=== PATIENT | male | born 1935 | race Asian ===

== ENCOUNTER 2020-02-03 03:36 | Inpatient (IN) | payer MEDICARE, OTHER ==
[2020-02-03] VITALS (7 sets, daily range): BP systolic 105–149; BP diastolic 54–85
[~2020-02-03] VITALS: Ht 167.6 cm; Wt 58.7 kg
[2020-02-03] MEDS ORDERED: Acetaminophen 650 MG SUPP RECTAL ONE (03:45)
--- NOTE | 2020-02-03 03:45 | NUR ---
ED Nurse Note: Pt brought into ED by SHILA TOBIN 26 for c/o respiratory distress and decreased altered mental status from [facility]. Pt is awake, opening eyes and nonverbal at this time. Pt oxygen saturation was 80s. Patient arrived with non-rebreather and satuation 95%. Pt placed on non- breather [id number], saturation is now 97%. Pt presents in the ED hypotensive and has expiratory weezing. EMS established IV line on Left arm and gave approx 100ml NS bolus. Pt undressed and changed to gown. Attached awake overnight monitor. ERMD at bedside. All safety masures are met: side rails up, the bed is the lowerst position. Skin is sintact, Noted pacemaker on left chest/. Pt presented BM. Continue to monitor.
[2020-02-03] MEDS ORDERED: Cefepime HCl 2 GM in NS 110 ML IV ONE (04:00)
[2020-02-03] MEDS ORDERED: Vancomycin 1 GM in NS 275 ML IV ONE (04:00)
--- NOTE | 2020-02-03 04:11 | Emergency Room Report ---
History of Present Illness General Chief Complaint: Dyspnea/Respdistress Source: Patient, Medical Record Present Illness HPI Patient is an 84-year-old male brought in by EMS after increased fever. Patient had recent urinary tract infection approximately 2 weeks ago. He been noted to have increased respiratory difficulty. Patient was sent in from [facility]. He had previous history of CABG as well as pacemaker placement. Per patient's son as well as the patient's paperwork he is DNR but is okay for IV fluids as well as IV antibiotics and some procedures may be okay if they have a clear indication and benefit. . Patient was noted to have prior history of dementia had recently been transitioning from primary care physician at [facility] he had been started on supplemental oxygen by paramedics. Patient denies any current complaints. Allergies: Coded Allergies: No Known Allergies (Unverified , 02/03/20) COVID-19 Screening Contact w/high risk pt: Yes Recent Travel to affected area: No Experienced COVID-19 symptoms?: Yes COVID-19 symptoms experienced: Fever (T>100.4F or >38C) COVID-19 Testing performed COTTON DISPATCHER: No - unk COVID-19 Screening: PUI COVID-19 Patient History Reviewed Nursing Documentation: PMH: Agreed; PSxH: Agreed Nursing Documentation-PMH Past Medical History: No History, Except For Hx Cardiac Problems: Yes - pacemaker History Of Psychiatric Problem: Yes - alzheimer's Review of Systems All Other Systems: negative except mentioned in HPI Physical Exam Vital Signs Date Time Temp Pulse Resp B/P (MAP) Pulse Ox O2 Delivery O2 Flow Rate FiO2 02/03/20 03:35 104.7 101 18 106/85 (92) 95 Non-Rebreather General Appearance: alert, Chronically Ill ENT: dry mucus membranes Neck: limited range of motion Respiratory: other - Tachypnea, increased respiratory rate. Cardiovascular #1: normal peripheral pulses, regular rate, rhythm Gastrointestinal: normal inspection, soft Musculoskeletal: normal inspection, back normal Neurologic: alert, motor strength/tone normal, senior physician III-XII nml as tested, oriented x3 Psychiatric: normal inspection Medical Decision Making Diagnostic Impression: Primary Impression: Suspected 2019-nCoV infection Additional Impressions: Febrile illness, acute Dehydration Dementia Pneumonia Urinary tract infection ER Course Presented for fever and difficulty with the breathing. Differential to include was not limited to pneumonia, coronavirus infection, urinary retention, among others. Because of complexity of patient's case laboratory tests and imaging studies were ordered. Right lower lobe infiltrate. Patient started on IV fluids. He was given IV antibiotics. Patient be admitted for further evaluation and treatment of acute febrile illness. Chest x-ray showed some infiltrate which is somewhat concerning for coronavirus infection. Patient will be admitted for further evaluation and treatment. Labs Test 02/03/20 04:32 White Blood Count 6.2 K/UL (4.8-10.8) Red Blood Count 4.46 M/UL (4.70-6.10) Hemoglobin 14.3 G/DL (14.2-18.0) Hematocrit 41.0 % (42.0-52.0) Mean Corpuscular Volume 92 FL (80-99) Mean Corpuscular Hemoglobin 32.0 PG (27.0-31.0) Mean Corpuscular Hemoglobin Concent 34.8 G/DL (32.0-36.0) Red Cell Distribution Width 11.6 % (11.6-14.8) Platelet Count 160 K/UL (150-450) Mean Platelet Volume 7.0 FL (6.5-10.1) Neutrophils (%) (Auto) % (45.0-75.0) Lymphocytes (%) (Auto) % (20.0-45.0) Monocytes (%) (Auto) % (1.0-10.0) Eosinophils (%) (Auto) % (0.0-3.0) Basophils (%) (Auto) % (0.0-2.0) Last Vital Signs Date Time Temp Pulse Resp B/P (MAP) Pulse Ox O2 Delivery O2 Flow Rate FiO2 02/03/20 03:35 104.7 101 18 106/85 (92) 95 Non-Rebreather Status: improved Disposition: ADMITTED INPATIENT Condition: Stable Referrals: [facility],REFERRING (PCP) Luis Antonio Casillas MD February 03, 2020 04:11
[2020-02-03] MEDS ORDERED: MILK OF MA400 MG/51 ORAL (04:14)
[2020-02-03] MEDS ORDERED: ACETAMINOPHEN500 M5 ORAL ×2 (04:14→08:45)
[2020-02-03] MEDS ORDERED: MELATONIN5 M5 ORAL (04:14)
[2020-02-03] MEDS ORDERED: BISMATROL262 MG/15 PO (04:14)
[2020-02-03] MEDS ORDERED: MEMANTINE HCL E28 MG PO (04:14)
[2020-02-03] MEDS ORDERED: ROBITUSSIN LON118 ML PO (04:14)
[2020-02-03] MEDS ORDERED: ROBITUSSIN COU118 M1 ORAL ×2 (04:14→09:18)
--- NOTE | 2020-02-03 04:30 | NUR ---
ED Nurse Note: IV line established Right hand 18G, EKG is done at bedside, Blood initial, lactatic, culture, MRSA/VRE/CRE, urine are collected and sent down to the lab. Unable to collect PCR due to no supply. Per ERMD, insert helms cath.
[2020-02-03 04:40] LABS: APPEARANCE,URINE CLOUDY; BILIRUBIN, URINE NEGATIVE (NEGATIVE); GLUCOSE, URINE (UA) NEGATIVE (NEGATIVE); KETONES,URINE 2+ (NEGATIVE); LEUKOCYTE ESTERASE ,URINE 3+ (NEGATIVE); NITRITE,URINE POSITIVE (NEGATIVE); PH,URINE 6 (4.5-8.0); PROTEIN,URINE 3+ (NEGATIVE); UROBILINOGEN,URINE NORMAL MG/DL (0.0-1.0)
[2020-02-03 04:41] LABS: HEMOGLOBIN 14.3 G/DL (14.2-18.0); MEAN CORPUSCULAR VOLUME 92 FL (80-99); PLATELET COUNT 160 K/UL (150-450); RED BLOOD COUNT 4.46 M/UL (4.70-6.10); RED CELL DISTRIBUTION WIDTH 11.6 % (11.6-14.8); WHITE BLOOD COUNT 6.2 K/UL (4.8-10.8)
[2020-02-03 04:53] LABS: COLOR,URINE YELLOW
[2020-02-03 04:55] LABS: ANION GAP 9 mmol/L (5-15); BLOOD UREA NITROGEN 27 mg/dL (7-18); CALCIUM 8.3 MG/DL (8.5-10.1); CARBON DIOXIDE 25 MMOL/L (21-32); CHLORIDE 105 MMOL/L (98-107); CREATININE 1.4 MG/DL (0.55-1.30); POTASSIUM 4.8 MMOL/L (3.5-5.1); SODIUM 139 MMOL/L (136-145)
[2020-02-03 05:08] LABS: ALANINE AMINOTRANSFERASE 18 U/L (12-78); ALBUMIN 3.1 G/DL (3.4-5.0); ALBUMIN/GLOBULIN RATIO 0.8 (1.0-2.7); ALKALINE PHOSPHATASE 86 U/L (46-116); ASPARTATE AMINO TRANSFERASE 30 U/L (15-37); CKMB < 0.5 NG/ML (0.0-3.6); CREATINE KINASE 80 U/L (26-308)
--- NOTE | 2020-02-03 06:00 | NUR ---
ED Nurse Note: upon integumentary reassessment, pt presents with no pressure sores. left knee abrasion noted
--- NOTE | 2020-02-03 06:03 | NUR ---
HAND-OFF: Report given to LUIS Pearce (Room #202). Answered all questions and reviewd the POC.
--- NOTE | 2020-02-03 06:05 | NUR ---
NURSE NOTES: RECEIVED REPORT FROM LUIS REYES. AWAITING PATIENT'S ARRIVAL TO UNIT.
--- NOTE | 2020-02-03 06:35 | NUR ---
TRANSFER TO FLOOR: Patient transferred to Tele bed as ordered, per Ashtyn BAIRES. Report given to LUIS Pearce. Pt is stable for transfer and transported to the unit via gurny with 3 RNs. Belongongs and admission packet were sent with pt. Droplet transport precausion observed.
--- NOTE | 2020-02-03 06:41 | NUR ---
NURSE NOTES: RECEIVED REPORT/HAND-OFF FROM LUIS REYES. PATIENT TRANSFERRED TO BE VIA 4-PERSON ASSIST WITHOUT ANY INCIDENT. PATIENT IS ALERT, OX1, VERBALLY RESPONSIVE- PATIENT IS URUGUAYAN-SPEAKING ONLY PER ERIC, BUT SPEAKS INCONSISTENTLY AND INCOMPREHENSIBLY. PATIENT ABLE TO FOLLOW SIMPLE COMMANDS, SUCH "OPEN YOUR EYES", "SQUEEZE MY HANDS". NOTED TO BE ON 15L VIA SIMPLE MASK- PATIENT IS TACHYPNEIC WITH AUDIBLE CONGESTION, BREATHING APPEARS TO BE EVEN AND UNLABORED WITH NO S/SX OF DISTRESS. PATIENT'S MOUTH CLEANED WITH ORAL SWABS. PATIENT CHANGED INTO YELLOW GOWN, AND PRODUCT SALES REPRESENTATIVE PLACED. PATIENT HAS NO DENTURES/HEARING AIDS/GLASSES/ASSISTIVE DEVICES IN HIS POSSESSION- PATIENT DID NOT COME WITH A CELL PHONE. PENA CATHETER DRAINING WELL TO GRAVITY, URINE NOTED TO BE DARK YELLOW IN COLOR. PATIENT NOTED TO HAVE MULTIPLE DRIED SCABS AND DISCOLORATIONS ON BILATERAL UPPER AND LOWER EXTREMITIES, WITH AN OPEN SCAB ON LLE. PATIENT ORIENTED TO UNIT, BED CONTROLS, CALL LIGHT, TV. BED LOCKED AND IN LOWEST POSITION WITH SIDERAILS UP X 2. CALL LIGHT WITHIN REACH. WILL CONTINUE TO MONITOR. Addendum: 02/03/20 at 0706 by Deepthi Ma RN IV SITES ON RIGHT HAND AND LAC ASYMPTOMATIC, PATENT AND INTACT- SALINE-LOCKED.
--- NOTE | 2020-02-03 07:29 | NUR ---
HAND-OFF: Report given to LUIS AWAN. PLAN OF CARE ENDORSED.
--- NOTE | 2020-02-03 08:05 | NUR ---
NURSE NOTES: Received report from LUIS Beckham. Pt asleep lying comfortably in bed. On simple mask 15L oxygen. No signs of acute distress. F/C draining by gravity. Bed low in position. Side rails up x2, call light within reach. Will continue plan of care.
[2020-02-03] MEDS ORDERED: ASPIRIN81 MG ORAL (08:45)
[2020-02-03] MEDS ORDERED: ATORVASTATIN CA20 MG ORAL (08:49)
[2020-02-03] MEDS ORDERED: DONEPEZIL HCL10 M2 ORAL (08:51)
[2020-02-03] MEDS ORDERED: MULTIVITAMINS1 EAC2 ORAL (09:18)
[2020-02-03] MEDS ORDERED: NEOSPORIN OINT30 GM TOPIC (09:18)
[2020-02-03] MEDS ORDERED: PSYLLIUM HUSK1 GM MC (09:18)
[2020-02-03] MEDS ORDERED: MELATONIN5 MG/15 ML PO (09:18)
[2020-02-03] MEDS ORDERED: CALMOSEPTINE O3.5 G1 TP (09:18)
--- NOTE | 2020-02-03 10:19 | Consultation ---
Consult Note Consult Note I am consulting the patient for renal failure and electrolyte imbalances, and fluid management Patient is a resident of [facility] extended care facility . Patient referred to emergency room for respiratory difficulty and subsequently admitted for further management. Dr Grace accepted to take the primary physician role Emergency room note: Chief Complaint: Dyspnea/Respdistress Patient is an 84-year-old male brought in by EMS after increased fever. Patient had recent urinary tract infection approximately 2 weeks ago. He been noted to have increased respiratory difficulty. Patient was sent in from [facility]. He had previous history of CABG as well as pacemaker placement. Per patient's son as well as the patient's paperwork he is DNR but is okay for IV fluids as well as IV antibiotics and some procedures may be okay if they have a clear indication and benefit. . Patient was noted to have prior history of dementia had recently been transitioning from primary care physician at [facility] he had been started on supplemental oxygen by paramedics. Patient denies any current complaints. No Known Allergies (Unverified , 02/03/20) COVID-19 Screening Contact w/high risk pt: Yes Recent Travel to affected area: No Experienced COVID-19 symptoms?: Yes COVID-19 symptoms experienced: Fever (T>100.4F or >38C) COVID-19 Testing performed WOOD HEEL FLAP RUBBER: No - unk COVID-19 Screening: PUI COVID-19 Past Medical History: No History, Except For Hx Cardiac Problems: Yes - pacemaker History Of Psychiatric Problem: Yes - alzheimer's Patient examined VSS General Appearance: awake, Chronically Ill ENT: dry mucus membranes Neck: limited range of motion Respiratory: other - Tachypnea, increased respiratory rate. Cardiovascular #1: normal peripheral pulses, regular rate, rhythm Gastrointestinal: normal inspection, soft Musculoskeletal: normal inspection, back normal Neurologic: alert, motor strength/tone normal, media librarian III-XII nml as tested, oriented x3 Psychiatric: normal inspection Data reviewed Discussed with LUIS Valles . Assessment/Plan Renal failure most likely dehydration, may have underlying chronic kidney disease Suspected 2018-nCoV infection Febrile illness, acute Dementia Pneumonia Urinary tract infection Status post pacemaker Slow IV hydration, watch for CHF symptoms Monitor renal parameters Urine studies Antibiotics per ID Avoid nephrotoxic's N.p.o. until speech therapy evaluation Per orders Cooper Chamorro MD February 03, 2020 10:19
--- NOTE | 2020-02-03 10:45 | NUR ---
CASE MANAGEMENT:REVIEW 84 YR OLD MALE BIBA FROM [facility] CC; SOB AND SATURATION 80% ON RA SI: SUSPECTED COVID 19 UTI. PNA DEHYDRATION 104.8 101 18 106/85 95% ON NON REBREATHER BUN+27 CR+1.4 LACTIC ACID+2.6 IS: TYLENOL IL IV VANCOMYCIN IV CEFEPIME IV FLAGYL COVID 19 SWAB BLOOD CX : TO TELEMETRY DCP: FROM [facility]
--- NOTE | 2020-02-03 10:56 | NUR ---
*-* INSURANCE *-* ALL AVAILABLE CLINICALS HAVE BEEN FAXED TO: [facility] [phone] FAX [phone] Work Work Addendum: 02/03/20 at 1112 by BEV WAGNER CM *-* NO INSURANCE INFORMATION IN THE BAR *-* Addendum: 02/04/20 at 0936 [address] CM [facility] P: [phone] F: [phone] (FAX ALL CLINICALS)
[2020-02-03] MEDS ORDERED: HydrALAZINE 25mg tab ORAL PRN (11:00)
[2020-02-03] MEDS: D5NS 1,000 ML IV SCH (11:07)
[2020-02-03] MEDS: Docusate 100mg cap ORAL SCH ×2 (12:37→18:46)
--- NOTE | 2020-02-03 12:49 | Consultation ---
History of Present Illness General Date patient seen: February 03, 2020 Chief Complaint: Dyspnea/Respdistress Present Illness HPI 84 year old male with hx of Dementia, Pacemaker, old Gtube (removed now), detention resident presented to ER by paramedics because of his desaturation and dyspnea. His pulse oximeter was at 80's in the filed. He was put on NRM and oxygen saturation brittnee to 95%. His CXR showed extensive RLL infiltrate. He is admitted for further work up. He is cachectic, awake but not communicating. Looks comfortable. Not answering any questions. Allergies: Coded Allergies: No Known Allergies (Unverified , 02/03/20) Medication History Scheduled Acetaminophen (Acetaminophen), 500 MG ORAL Q6HR, (Reported) Aspirin* (Aspirin*), 81 MG ORAL DAILY, (Reported) Atorvastatin Calcium* (Atorvastatin Calcium*), 20 MG ORAL BEDTIME, (Reported) Donepezil Hcl* (Donepezil Hcl*), 20 MG ORAL DAILY, (Reported) Magnesium Hydroxide* (Milk Of Magnesia*), 30 ML ORAL DAILY, (Reported) Melatonin (Melatonin), 5 MG PO BEDTIME, (Reported) Menthol/Zinc Oxide (Calmoseptine Ointment), 0.44-20 % TP TID, (Reported) Multivitamins* (Multivitamins*), 1 TAB ORAL DAILY, (Reported) Neomycin/Polymyxin/Bacitracin* (Triple Antibiotic Ointment*), Unknown Dose TOPIC NEEDED, (Reported) Psyllium Husk (Psyllium Husk), 3.4 GM MC DAILY, (Reported) Scheduled PRN Guaifenesin/D-Methorphan Hb/Pe (Robitussin Cough-Cold Cf Liq*), 10 ML ORAL Q8H PRN for FOR COUGH, (Reported) Guaifenesin/D-Methorphan Hb/Pe (Robitussin Cough-Cold Cf Liq*), 10 ML ORAL Q4HR PRN for chest congestion, (Reported) Miscellaneous Medications Bismuth Subsalicylate (Bismatrol), 262 MG PO, (Reported) Memantine HCl (Memantine HCl ER), 28 MG PO, (Reported) Discontinued Medications Acetaminophen (Acetaminophen), 500 MG ORAL Q4H, (Reported) Discontinued Reason: discontinued med Dextromethorphan Hbr/Chlor-Mal (Robitussin Long-Acting Liq), 118 ML PO, ( Reported) Discontinued Reason: MD discontinued med Melatonin (Melatonin), 5 MG ORAL BEDTIME PRN for Insomnia, (Reported) Discontinued Reason: MD discontinued med Patient History Healthcare decision maker Resuscitation status Advanced Directive on File Past Medical/Surgical History Past Medical/Surgical History: (1) Alzheimer's dementia (2) History of pacemaker Review of Systems All Other Systems: negative except mentioned in HPI Physical Exam General Appearance: cachetic, thin Lines, tubes and drains: peripheral HEENT: normocephalic, atraumatic Neck: non-tender, supple Respiratory/Chest: rhonchi - left, rhonchi - right Cardiovascular/Chest: normal peripheral pulses, normal rate Abdomen: normal bowel sounds, non tender Extremities: normal range of motion Skin Exam: normal pigmentation Last 24 Hour Vital Signs Date Time Temp Pulse Resp B/P (MAP) Pulse Ox O2 Delivery O2 Flow Rate FiO2 02/03/20 12:00 97.3 74 18 149/66 (93) 100 02/03/20 08:00 74 02/03/20 08:00 97.0 76 20 145/56 (85) 99 02/03/20 07:05 97.2 86 22 116/64 (81) 96 02/03/20 05:47 98.0 86 16 119/54 97 Simple Mask 15.0 02/03/20 04:14 98.0 02/03/20 03:45 101 18 Non-Rebreather 15.0 97 02/03/20 03:45 104.8 101 18 106/85 95 Non-Rebreather 15.0 02/03/20 03:35 104.7 101 18 106/85 (92) 95 Non-Rebreather Intake and Output 02/02/20 02/03/20 19:00 07:00 Intake Total 0 ml Output Total 30 ml Balance -30 ml Intake Oral 0 ml Output Urine Total 30 ml # Bowel Movements 1 Laboratory Tests Test 02/03/20 04:32 02/03/20 05:30 White Blood Count 6.2 K/UL (4.8-10.8) Red Blood Count 4.46 M/UL (4.70-6.10) L Hemoglobin 14.3 G/DL (14.2-18.0) Hematocrit 41.0 % (42.0-52.0) L Mean Corpuscular Volume 92 FL (80-99) Mean Corpuscular Hemoglobin 32.0 PG (27.0-31.0) H Mean Corpuscular Hemoglobin Concent 34.8 G/DL (32.0-36.0) Red Cell Distribution Width 11.6 % (11.6-14.8) Platelet Count 160 K/UL (150-450) Mean Platelet Volume 7.0 FL (6.5-10.1) Neutrophils (%) (Auto) % (45.0-75.0) Lymphocytes (%) (Auto) % (20.0-45.0) Monocytes (%) (Auto) % (1.0-10.0) Eosinophils (%) (Auto) % (0.0-3.0) Basophils (%) (Auto) % (0.0-2.0) Urine Color Yellow Urine Appearance Cloudy Urine pH 6 (4.5-8.0) Urine Specific [place] 1.015 (1.005-1.035) Urine Protein 3+ (NEGATIVE) H Urine Glucose (UA) Negative (NEGATIVE) Urine Ketones 2+ (NEGATIVE) H Urine Blood 4+ (NEGATIVE) H Urine Nitrite Positive (NEGATIVE) H Urine Bilirubin Negative (NEGATIVE) Urine Urobilinogen Normal MG/DL (0.0-1.0) Urine Leukocyte Esterase 3+ (NEGATIVE) H Urine RBC Tntc /HPF (0 - 0) H Urine WBC Tntc /HPF (0 - 0) H Urine Squamous Epithelial Cells None /LPF (NONE/OCC) Urine Bacteria Many /HPF (NONE) H Sodium Level 139 MMOL/L (136-145) Potassium Level 4.8 MMOL/L (3.5-5.1) Chloride Level 105 MMOL/L (98-107) Carbon Dioxide Level 25 MMOL/L (21-32) Anion Gap 9 mmol/L (5-15) Blood Urea Nitrogen 27 mg/dL (7-18) H Creatinine 1.4 MG/DL (0.55-1.30) H Estimat Glomerular Filtration Rate 48.2 mL/min (>60) Glucose Level 143 MG/DL (74-106) H Lactic Acid Level 2.60 mmol/L (0.4-2.0) H 1.80 mmol/L (0.66-2.22) Calcium Level 8.3 MG/DL (8.5-10.1) L Total Bilirubin 1.0 MG/DL (0.2-1.0) Aspartate Amino Transf (AST/SGOT) 30 U/L (15-37) Alanine Aminotransferase (ALT/SGPT) 18 U/L (12-78) Alkaline Phosphatase 86 U/L (46-116) Total Creatine Kinase 80 U/L (26-308) Creatine Kinase MB < 0.5 NG/ML (0.0-3.6) Creatine Kinase MB Relative Index 0.6 Troponin I 0.008 ng/mL (0.000-0.056) Total Protein 7.0 G/DL (6.4-8.2) Albumin 3.1 G/DL (3.4-5.0) L Globulin 3.9 g/dL Albumin/Globulin Ratio 0.8 (1.0-2.7) L Height (Feet): 5 Height (Inches): 6.00 Weight (Pounds): 115 Medications Current Medications Medications (Trade) Dose Ordered Sig/Jodee Route PRN Reason Start Time Stop Time Status Last Admin Dose Admin Dextrose/Sodium Chloride 1,000 ml @ 50 mls/hr Q20H IV 02/03/20 10:30 03/04/20 10:29 02/03/20 11:07 Docusate Sodium (Colace) 100 mg THREE TIMES A DAY ORAL 02/03/20 13:00 03/04/20 12:59 02/03/20 12:37 Hydralazine HCl (Apresoline) 25 mg Q4H PRN ORAL For blood pressure over 160 sy 02/03/20 11:00 05/03/20 10:59 Pantoprazole (Protonix) 40 mg EVERY 12 HOURS ORAL 02/03/20 11:00 03/04/20 10:59 02/03/20 11:07 Assessment/Plan Problem List: (1) Nosocomial pneumonia ICD Codes: J18.9 - Pneumonia, unspecified organism; Y95 - Nosocomial condition SNOMED: 589827843 (2) Suspected 2019-nCoV infection ICD Codes: Z20.828 - Contact with and (suspected) exposure to other viral communicable diseases SNOMED: 072147721 (3) At high risk for aspiration ICD Codes: Z91.89 - Other specified personal risk factors, not elsewhere classified SNOMED: 257211330 (4) Febrile illness, acute ICD Codes: R50.9 - Fever, unspecified SNOMED: 748044029 (5) Alzheimer's dementia ICD Codes: G30.9 - Alzheimer's disease, unspecified; F02.80 - Dementia in other diseases classified elsewhere without behavioral disturbance SNOMED: 65355776 (6) History of pacemaker ICD Codes: Z95.0 - Presence of cardiac pacemaker SNOMED: 289077785 (7) Severe protein-calorie malnutrition ICD Codes: E43 - Unspecified severe protein-calorie malnutrition SNOMED: 825909041, 895645774, 098999374 Assessment/Plan: respiratory treatment check sputum broad spectrum abx swallow study NPO for now airborne isolation for now dvt prophylaxis Jefry Schwazr MD February 03, 2020 12:49
[2020-02-03] MEDS ORDERED: Albuterol/Ipratropium 3ml neb HHN PRN (13:30)
[2020-02-03] MEDS ORDERED: Promethazine/Codeine 5ml UD ORAL PRN (13:30)
[2020-02-03] MEDS ORDERED: Miralax 17gm pkt ORAL PRN (13:30)
[2020-02-03] MEDS ORDERED: Nitroglycerin Subl 0.4mg tab SL PRN (13:30)
--- NOTE | 2020-02-03 15:11 | Consultation ---
History of Present Illness General Date patient seen: February 03, 2020 Chief Complaint: Dyspnea/Respdistress Present Illness HPI 84 y/o M with hx of Alzheimer's Dementia, s/p PPM, CAD s/p CABG, dysphagia s/p GT (now removed), [place] resident ([facility]) presented to ED on 02/02 with dyspnea, fever, desaturation to the 80s in the field (was placed on NRB and O2 increased to 95%). CXR showed RLL infiltrate. Patient reported to have a UTI 2 weeks ago. Patient has been noted to have increased respiratory difficulty. Allergies: Coded Allergies: No Known Allergies (Unverified , 02/03/20) Medication History Scheduled Acetaminophen (Acetaminophen), 500 MG ORAL Q6HR, (Reported) Aspirin* (Aspirin*), 81 MG ORAL DAILY, (Reported) Atorvastatin Calcium* (Atorvastatin Calcium*), 20 MG ORAL BEDTIME, (Reported) Donepezil Hcl* (Donepezil Hcl*), 20 MG ORAL DAILY, (Reported) Magnesium Hydroxide* (Milk Of Magnesia*), 30 ML ORAL DAILY, (Reported) Melatonin (Melatonin), 5 MG PO BEDTIME, (Reported) Menthol/Zinc Oxide (Calmoseptine Ointment), 0.44-20 % TP TID, (Reported) Multivitamins* (Multivitamins*), 1 TAB ORAL DAILY, (Reported) Neomycin/Polymyxin/Bacitracin* (Triple Antibiotic Ointment*), Unknown Dose TOPIC NEEDED, (Reported) Psyllium Husk (Psyllium Husk), 3.4 GM MC DAILY, (Reported) Scheduled PRN Guaifenesin/D-Methorphan Hb/Pe (Robitussin Cough-Cold Cf Liq*), 10 ML ORAL Q8H PRN for FOR COUGH, (Reported) Guaifenesin/D-Methorphan Hb/Pe (Robitussin Cough-Cold Cf Liq*), 10 ML ORAL Q4HR PRN for chest congestion, (Reported) Miscellaneous Medications Bismuth Subsalicylate (Bismatrol), 262 MG PO, (Reported) Memantine HCl (Memantine HCl ER), 28 MG PO, (Reported) Discontinued Medications Acetaminophen (Acetaminophen), 500 MG ORAL Q4H, (Reported) Discontinued Reason: MD discontinued med Dextromethorphan Hbr/Chlor-Mal (Robitussin Long-Acting Liq), 118 ML PO, ( Reported) Discontinued Reason: discontinued med Melatonin (Melatonin), 5 MG ORAL BEDTIME PRN for Insomnia, (Reported) Discontinued Reason: MD discontinued med Patient History Healthcare decision maker Resuscitation status Advanced Directive on File Patient History Narrative PMhx: As above Shx: reviewed FMHx: non contributory Review of Systems All Other Systems: negative except mentioned in HPI Physical Exam Physical Exam Narrative General Appearance: awake, Chronically Ill ENT: dry mucus membranes Neck: limited range of motion Respiratory: other - Tachypnea, increased respiratory rate. Cardiovascular #1: normal peripheral pulses, regular rate, rhythm Gastrointestinal: normal inspection, soft Musculoskeletal: normal inspection, back normal Last 24 Hour Vital Signs Date Time Temp Pulse Resp B/P (MAP) Pulse Ox O2 Delivery O2 Flow Rate FiO2 02/03/20 12:00 97.3 74 18 149/66 (93) 100 02/03/20 09:00 Simple Mask 15.0 02/03/20 09:00 Simple Mask 15.0 02/03/20 08:00 74 02/03/20 08:00 97.0 76 20 145/56 (85) 99 02/03/20 07:05 97.2 86 22 116/64 (81) 96 02/03/20 05:47 98.0 86 16 119/54 97 Simple Mask 15.0 02/03/20 04:14 98.0 02/03/20 03:45 101 18 Non-Rebreather 15.0 97 02/03/20 03:45 104.8 101 18 106/85 95 Non-Rebreather 15.0 02/03/20 03:35 104.7 101 18 106/85 (92) 95 Non-Rebreather Intake and Output 02/02/20 02/03/20 19:00 07:00 Intake Total 0 ml Output Total 30 ml Balance -30 ml Intake Oral 0 ml Output Urine Total 30 ml # Bowel Movements 1 Laboratory Tests Test 02/03/20 04:32 02/03/20 05:30 White Blood Count 6.2 K/UL (4.8-10.8) Red Blood Count 4.46 M/UL (4.70-6.10) L Hemoglobin 14.3 G/DL (14.2-18.0) Hematocrit 41.0 % (42.0-52.0) L Mean Corpuscular Volume 92 FL (80-99) Mean Corpuscular Hemoglobin 32.0 PG (27.0-31.0) H Mean Corpuscular Hemoglobin Concent 34.8 G/DL (32.0-36.0) Red Cell Distribution Width 11.6 % (11.6-14.8) Platelet Count 160 K/UL (150-450) Mean Platelet Volume 7.0 FL (6.5-10.1) Neutrophils (%) (Auto) % (45.0-75.0) Lymphocytes (%) (Auto) % (20.0-45.0) Monocytes (%) (Auto) % (1.0-10.0) Eosinophils (%) (Auto) % (0.0-3.0) Basophils (%) (Auto) % (0.0-2.0) Urine Color Yellow Urine Appearance Cloudy Urine pH 6 (4.5-8.0) Urine Specific [place] 1.015 (1.005-1.035) Urine Protein 3+ (NEGATIVE) H Urine Glucose (UA) Negative (NEGATIVE) Urine Ketones 2+ (NEGATIVE) H Urine Blood 4+ (NEGATIVE) H Urine Nitrite Positive (NEGATIVE) H Urine Bilirubin Negative (NEGATIVE) Urine Urobilinogen Normal MG/DL (0.0-1.0) Urine Leukocyte Esterase 3+ (NEGATIVE) H Urine RBC Tntc /HPF (0 - 0) H Urine WBC Tntc /HPF (0 - 0) H Urine Squamous Epithelial Cells None /LPF (NONE/OCC) Urine Bacteria Many /HPF (NONE) H Sodium Level 139 MMOL/L (136-145) Potassium Level 4.8 MMOL/L (3.5-5.1) Chloride Level 105 MMOL/L (98-107) Carbon Dioxide Level 25 MMOL/L (21-32) Anion Gap 9 mmol/L (5-15) Blood Urea Nitrogen 27 mg/dL (7-18) H Creatinine 1.4 MG/DL (0.55-1.30) H Estimat Glomerular Filtration Rate 48.2 mL/min (>60) Glucose Level 143 MG/DL (74-106) H Lactic Acid Level 2.60 mmol/L (0.4-2.0) H 1.80 mmol/L (0.66-2.22) Calcium Level 8.3 MG/DL (8.5-10.1) L Total Bilirubin 1.0 MG/DL (0.2-1.0) Aspartate Amino Transf (AST/SGOT) 30 U/L (15-37) Alanine Aminotransferase (ALT/SGPT) 18 U/L (12-78) Alkaline Phosphatase 86 U/L (46-116) Total Creatine Kinase 80 U/L (26-308) Creatine Kinase MB < 0.5 NG/ML (0.0-3.6) Creatine Kinase MB Relative Index 0.6 Troponin I 0.008 ng/mL (0.000-0.056) Total Protein 7.0 G/DL (6.4-8.2) Albumin 3.1 G/DL (3.4-5.0) L Globulin 3.9 g/dL Albumin/Globulin Ratio 0.8 (1.0-2.7) L Height (Feet): 5 Height (Inches): 6.00 Weight (Pounds): 115 Medications Current Medications Medications (Trade) Dose Ordered Sig/Jodee Route PRN Reason Start Time Stop Time Status Last Admin Dose Admin Acetaminophen (Tylenol) 650 mg Q4H PRN ORAL fever 02/03/20 13:00 03/04/20 12:59 Albuterol/ Ipratropium (Albuterol/ Ipratropium) 3 ml Q4H PRN HHN Shortness of Breath 02/03/20 13:30 02/08/20 13:29 Cefepime HCl 1 gm/ Dextrose 55 ml @ 110 mls/hr DAILY IV 02/04/20 09:00 02/11/20 08:59 Dextrose/Sodium Chloride 1,000 ml @ 50 mls/hr Q20H IV 02/03/20 10:30 03/04/20 10:29 02/03/20 11:07 Docusate Sodium (Colace) 100 mg THREE TIMES A DAY ORAL 02/03/20 13:00 03/04/20 12:59 02/03/20 12:37 Donepezil HCl (Aricept) 20 mg DAILY ORAL 02/04/20 09:00 03/05/20 08:59 Heparin Sodium (Porcine) (Heparin 5000 units/ml) 5,000 units EVERY 12 HOURS SUBQ 02/03/20 21:00 03/19/20 20:59 Hydralazine HCl (Apresoline) 25 mg Q4H PRN ORAL For blood pressure over 160 sy 02/03/20 11:00 05/03/20 10:59 Nitroglycerin (Ntg) 0.4 mg Q5M PRN SL Prn Chest Pain 02/03/20 13:30 03/04/20 13:29 Ondansetron HCl (Zofran) 4 mg Q6H PRN IVP Nausea & Vomiting 02/03/20 13:30 03/04/20 13:29 Pantoprazole (Protonix) 40 mg EVERY 12 HOURS ORAL 02/03/20 11:00 03/04/20 10:59 02/03/20 11:07 Polyethylene Glycol (Miralax) 17 gm DAILYPRN PRN ORAL Constipation 02/03/20 13:30 03/04/20 13:29 Promethazine HCl/ Codeine (Phenergan with Codeine) 5 ml Q4H PRN ORAL For Cough 02/03/20 13:30 03/04/20 13:29 Temazepam (Restoril) 15 mg HSPRN PRN ORAL Insomnia 02/03/20 21:00 02/10/20 20:59 Vancomycin HCl (Vanco rx to dose) 1 ea DAILY PRN MISC Per rx protocol 02/03/20 12:45 03/04/20 12:44 Assessment/Plan Assessment/Plan: Abx: IV Vancomycin 02/02- Cefepime 02/02- Flagyl x 1 02/02 Assessment: Severe Sepsis Acute hypoxic respiratory failure- on simple mask 15L- high suspicion for COVID19 Probable Pneumonia -CXR p UTI -u/a wbc tnct, nit +, leuk +3; ucx p Ro probable bacteremia -BCx p Fever ( up to 104.8 upon admission);improving No leukocytosis BRIANA Lactic acidosis, SP hx of recent UTI (~2 weeks [facility]) Alzheimer's Dementia s/p PPM CAD s/p CABG dysphagia s/p GT (now removed) [place] resident ([facility]) - no reported COVID patients in this facility as of 02/03/20 DNR/DNI Plan: -Continue empiric IV Vancomycin and Cefepime #1 -f/u cx -Monitor CBC/CMP, temperatures -COVID 19 isolation and testing -aspiration precautions Thank you for consulting [facility]. Will contiue to follow along with you. Discussed with LUIS. Jocelyn Olson M.D. February 03, 2020 15:11
--- NOTE | 2020-02-03 15:23 | NUR ---
PT REFERRED FOR BEDSIDE SWALLOW EVALUATION BY DR. ALONZO (Please see care activity section for complete report) DYSPHAGIA RISK FACTORS FOR THIS 83 Y.O. Male ACUTE ISSUES PNA with suspected COVID -19, UTI, Dehydration, Dyspnea, respiratory distress, COMORBIDITIES CABG w/ pacemaker placement, Alzheimer Dementia RELEVANT MEDICATIONS: Albuterol (SOB), Zofran (nausea); Protonix (GERD); Restoril (insomnia); Codeine (Pain) PRIOR FUNCTION: Pt previously living at [facility]. No information on pervious diet texture available in chart. RESPIRATORY STATUS on simple mask 15 L/min: HR: 74; RR 18; SP02 100% SPEECH/LANGUAGE: Pt is able to speak Micronesian, confused, lethargic, requires multiple verbal and tactile cues to maintain alertness during evaluation. RN REPORTS: Pt swallowed PO medications whole w/ nectar thick liquids and no significant overt s/s of aspiration. POLST: DNR, procedures may be okay if they have clear indication and benefit. Pt requires moderate verbal and tactile cues to awake for PO trials and additional cues to sustain alertness. Has intact dentition, lingual ROM and coordination mildly reduced. Able to verbally communicate wants and needs. Oral secretion management is function. INITIAL IMPRESSIONS: Mild oral and probable mild to moderate pharyngeal phase dysphagia compounded by respiratory distress and SOB with increased oral prep and transit time, reduced and delayed laryngeal elevation. Overt s/s of aspiration w/ thin liquids observed only. -->Given thin liquids via teaspoon w/ immediate and overt s/s of aspiration. Laryngeal elevation is reduced per palpations and appears delayed. -->Given thicken liquids via straw w/ no overt s/s of aspiration. -->Given puree solids via teaspoon w/ no immediate or overt s/s of aspiration, multiple swallows and laryngeal elevation is reduced per palpations. Pt requires simple mask at 15 L/min, respiratory rate increases w/ sequential sips. -PATIENT IS AT A RISK FOR ASPIRATION DUE TO REDUCED ALERTNESS (LETHARGIC) AND Hx OF ALZHEIMER'S DEMENTIA RECOMMENDATIONS: 1. Puree solids w/ Jaars Thick Liquids and 1:to:1 careful hand feeding 2. ASPIRATION/REFLUX PRECAUTIONS, refer to sign posted above HOB 3. SKILLED ST SERVICES TO F/U 3x a week x 1 week 4. MBSS IP OR OP (IF D/C) WHEN COVID NEG
--- NOTE | 2020-02-03 16:34 | History & Physical ---
History and Physical History & Physicial Dictated for Int Med-Dr Grace no. [id number]. DNR/DNI-POLST in chart Ramiro Harry MD February 03, 2020 16:33
--- NOTE | 2020-02-03 19:03 | NUR ---
HAND-OFF: Report given to LUIS Person.
--- NOTE | 2020-02-03 19:04 | Cardiology Progress Note ---
Assessment/Plan Assessment/Plan full note dicted once covid rulled out may consider echo repeat cardaic enzymes and pro bnp in am bp look good sat are fien but on high flow oxygehn taper as possible [id number] Objective Last 24 Hour Vital Signs Date Time Temp Pulse Resp B/P (MAP) Pulse Ox O2 Delivery O2 Flow Rate FiO2 02/03/20 16:00 73 02/03/20 16:00 97.3 81 20 125/62 (83) 99 02/03/20 15:25 91 24 96 Non-Rebreather 100 02/03/20 15:25 91 24 96 Non-Rebreather 100 02/03/20 12:00 97.3 74 18 149/66 (93) 100 02/03/20 09:00 Simple Mask 15.0 02/03/20 09:00 Simple Mask 15.0 02/03/20 08:00 74 02/03/20 08:00 97.0 76 20 145/56 (85) 99 02/03/20 07:05 97.2 86 22 116/64 (81) 96 02/03/20 05:47 98.0 86 16 119/54 97 Simple Mask 15.0 02/03/20 04:14 98.0 02/03/20 03:45 101 18 Non-Rebreather 15.0 97 02/03/20 03:45 104.8 101 18 106/85 95 Non-Rebreather 15.0 02/03/20 03:35 104.7 101 18 106/85 (92) 95 Non-Rebreather Intake and Output 02/02/20 02/03/20 19:00 07:00 Intake Total 0 ml Output Total 30 ml Balance -30 ml Intake Oral 0 ml Output Urine Total 30 ml # Bowel Movements 1 Laboratory Tests Test 02/03/20 04:32 02/03/20 05:30 White Blood Count 6.2 K/UL (4.8-10.8) Red Blood Count 4.46 M/UL (4.70-6.10) L Hemoglobin 14.3 G/DL (14.2-18.0) Hematocrit 41.0 % (42.0-52.0) L Mean Corpuscular Volume 92 FL (80-99) Mean Corpuscular Hemoglobin 32.0 PG (27.0-31.0) H Mean Corpuscular Hemoglobin Concent 34.8 G/DL (32.0-36.0) Red Cell Distribution Width 11.6 % (11.6-14.8) Platelet Count 160 K/UL (150-450) Mean Platelet Volume 7.0 FL (6.5-10.1) Neutrophils (%) (Auto) % (45.0-75.0) Lymphocytes (%) (Auto) % (20.0-45.0) Monocytes (%) (Auto) % (1.0-10.0) Eosinophils (%) (Auto) % (0.0-3.0) Basophils (%) (Auto) % (0.0-2.0) Urine Color Yellow Urine Appearance Cloudy Urine pH 6 (4.5-8.0) Urine Specific [place] 1.015 (1.005-1.035) Urine Protein 3+ (NEGATIVE) H Urine Glucose (UA) Negative (NEGATIVE) Urine Ketones 2+ (NEGATIVE) H Urine Blood 4+ (NEGATIVE) H Urine Nitrite Positive (NEGATIVE) H Urine Bilirubin Negative (NEGATIVE) Urine Urobilinogen Normal MG/DL (0.0-1.0) Urine Leukocyte Esterase 3+ (NEGATIVE) H Urine RBC Tntc /HPF (0 - 0) H Urine WBC Tntc /HPF (0 - 0) H Urine Squamous Epithelial Cells None /LPF (NONE/OCC) Urine Bacteria Many /HPF (NONE) H Sodium Level 139 MMOL/L (136-145) Potassium Level 4.8 MMOL/L (3.5-5.1) Chloride Level 105 MMOL/L (98-107) Carbon Dioxide Level 25 MMOL/L (21-32) Anion Gap 9 mmol/L (5-15) Blood Urea Nitrogen 27 mg/dL (7-18) H Creatinine 1.4 MG/DL (0.55-1.30) H Estimat Glomerular Filtration Rate 48.2 mL/min (>60) Glucose Level 143 MG/DL (74-106) H Lactic Acid Level 2.60 mmol/L (0.4-2.0) H 1.80 mmol/L (0.66-2.22) Calcium Level 8.3 MG/DL (8.5-10.1) L Total Bilirubin 1.0 MG/DL (0.2-1.0) Aspartate Amino Transf (AST/SGOT) 30 U/L (15-37) Alanine Aminotransferase (ALT/SGPT) 18 U/L (12-78) Alkaline Phosphatase 86 U/L (46-116) Total Creatine Kinase 80 U/L (26-308) Creatine Kinase MB < 0.5 NG/ML (0.0-3.6) Creatine Kinase MB Relative Index 0.6 Troponin I 0.008 ng/mL (0.000-0.056) Total Protein 7.0 G/DL (6.4-8.2) Albumin 3.1 G/DL (3.4-5.0) L Globulin 3.9 g/dL Albumin/Globulin Ratio 0.8 (1.0-2.7) L Dio Calzada MD February 03, 2020 19:04
--- NOTE | 2020-02-03 20:19 | NUR ---
NURSE NOTES: Received patient from LUIS Mendoza. Patient AOx 1. He shows no signs of distress or pain at them time. Patient is on soft restraints on both wrists. Hill in place. Patients IV is patent and flushed. There are no signs of erythema, infiltration, or bleeding. Bed in the lowest position, call light within reach, bed alarm on, and side rails up x 3. Will continue plan of care.
[2020-02-03] MEDS: Atorvastatin 20mg tab ORAL SCH (21:57)
[2020-02-03] MEDS: Heparin 5000 units/ml inj SUBQ SCH (21:58)
--- NOTE | 2020-02-03 22:44 | History and Physical Report ---
DATE OF ADMISSION: 02/03/2020 NOTE: INCOMPLETE DICTATION CHIEF COMPLAINT: Patient is an 84-year-old male who presents with a chief complaint of fever and shortness of breath. HISTORY OF PRESENT ILLNESS: Patient is a resident of [facility]. Patient himself is unable to contribute much to the history and physical. Patient has a history of Alzheimer's dementia. Patient apparently was treated for urinary tract infection approximately 2 weeks ago. Staff at [facility] noted patient had fever yesterday, 02/02/2020. Patient also seemed to have labored respirations. Patient presented to [place] emergency room. Patient is admitted with fever to rule out urosepsis versus upper respiratory tract infection versus COVID-19 infection. REVIEW OF SYSTEMS: Unable to assess secondary to patient's mental status. PAST MEDICAL HISTORY: Significant for: 1. Alzheimer's dementia. 2. Coronary artery disease. PAST SURGICAL HISTORY: Significant for: 1. Pacemaker implantation. 2. Coronary artery bypass graft. 3. Gastrostomy tube placement and subsequent reversal. CURRENT MEDICATIONS: 1. Tylenol 500 mg 1 tablet p.o. q.6h. p.r.n. 2. Aspirin 81 mg 1 tablet p.o. daily. 3. Atorvastatin 20 mg p.o. at bedtime. 4. Bismatrol 262 mg p.o. p.r.n. 5. Benazepril 20 mg p.o. daily. 6. Magnesium hydroxide 30 mL p.o. daily. 7. Melatonin 5 mg p.o. at bedtime p.r.n. 8. Memantine 28 mg p.o. daily. 9. Multivitamin p.o. daily. 10. Metamucil p.o. daily. ALLERGIES: No known drug allergies. SOCIAL HISTORY: Patient is single and lives at [facility]. Patient denies tobacco or alcohol use. PHYSICAL EXAMINATION: VITAL SIGNS: Temperature 104.7, respirations 18, pulse 95, blood pressure 106/85. GENERAL: Patient is a thin-appearing male, in no apparent distress. HEENT: Eyes, pupils are equal and responsive to light and accommodation. Extraocular movements are intact. NECK: Supple. No lymphadenopathy. CHEST: Lungs are clear to auscultation bilaterally without wheezes or rales. CARDIOVASCULAR: Regular rate. S1, S2 normal without murmurs, rubs, gallops. ABDOMEN: Soft, nontender, and nondistended. Positive bowel sounds. No evidence of hepatosplenomegaly. Currently, no rebound or guarding noted. EXTREMITIES: Negative for clubbing, cyanosis, or edema. RECTAL/GENITAL: Not performed. NEUROLOGICAL: Cranial nerves II through XII grossly intact without focal deficits. LABORATORY STUDIES: WBC 6.2, hemoglobin 14.3, hematocrit 41.0, platelets 160,000. Sodium 139, potassium 4.8, chloride 105, CO2 25, BUN 27, creatinine 1.4, glucose 143. Lactic acid 2.60. Troponin 0.008. Urinalysis showed 3+ protein, 2+ ketones, 4+ blood, nitrite positive, leukocyte esterase 3+, rbc's too numerous to count, wbc's too numerous to count. ASSESSMENT: This is an 84-year-old male. 1. Fever. 2. Urinary tract infection. 3. Shortness of breath. 4. Alzheimer's dementia. 5. Coronary artery disease. 6. DNR/DNI status. TREATMENT: 1. Fever/urinary tract infection. Patient may have sepsis. On admission, fever was greater than 104 degrees Fahrenheit. This is high for an elderly male. Ramiro Harry M.D. DR: CHINA JOB#: [id number] CC:
--- NOTE | 2020-02-03 22:52 | NUR ---
NURSE NOTES: Gracie from [facility] called to check on patients condition. Relayed that there was no change and no fevers have been noted.
--- NOTE | 2020-02-03 23:00 | History and Physical Report ---
DATE OF ADMISSION: 02/03/2020 CHIEF COMPLAINT: Patient is an 84-year-old male, who presents with a chief complaint of fever and shortness of breath. HISTORY OF PRESENT ILLNESS: Patient himself is unable to contribute much to the history and physical. Much of the history and physical is obtained from patient's chart. Patient is a resident of [facility]. Patient apparently was treated for urinary tract infection recently. According to staff at [facility], patient began to experience fever on 02/02/2020. Patient is transferred to [facility] for evaluation. Patient is admitted for fever and shortness of breath to rule out COVID-19 infection versus sepsis. REVIEW OF SYSTEMS: Unable to assess secondary to patient's mental status. PAST MEDICAL HISTORY: Significant for: 1. Alzheimer's dementia. 2. Coronary artery disease. PAST SURGICAL HISTORY: Significant for: 1. Pacemaker implantation. 2. Coronary artery bypass graft. 3. Gastrostomy tube placement and subsequent referral. CURRENT MEDICATIONS: 1. Acetaminophen 500 mg p.o. q.4h. p.r.n. 2. Aspirin 81 mg p.o. daily. 3. Atorvastatin 20 mg p.o. at bedtime. 4. Benazepril 10 mg 2 tablets p.o. daily. 5. Melatonin 5 mg p.o. at bedtime. 6. Memantine 28 mg p.o. daily. 7. Multivitamin p.o. daily. ALLERGIES: No known drug allergies. SOCIAL HISTORY: Patient is single and is a resident of [facility]. Patient denies tobacco or alcohol use. PHYSICAL EXAMINATION: VITAL SIGNS: Temperature 104.7, respirations 18, pulse 101, blood pressure 106/85, pulse ox 95% on a non-rebreather. GENERAL: Patient is a thin-appearing male, in no apparent distress. HEENT: Eyes, pupils are equal and responsive to light and accommodation. Extraocular movements are intact. NECK: Supple without lymphadenopathy. CHEST: Lungs are clear to auscultation bilaterally without wheezes or rales. CARDIOVASCULAR: Regular rate. S1, S2 are normal without murmurs, rubs, or gallops. ABDOMEN: Soft, nontender, nondistended. Positive bowel sounds. No hepatosplenomegaly. Currently, no rebound or guarding noted. EXTREMITIES: Negative for clubbing, cyanosis, edema. RECTAL/GENITAL: Not performed. NEUROLOGIC: Cranial nerves II through XII are grossly intact without focal deficits. LABORATORY STUDIES: WBC 6.3, hemoglobin 14.3, hematocrit 41.0, platelets 160,000. Sodium 139, potassium 4.8, chloride 105, CO2 25, BUN 27, creatinine 1.4, glucose 143. Lactic acid 2.60. Troponin 0.008. Urinalysis showed 3+ protein, 2+ ketones, 4+ blood, positive nitrite, 3+ leukocyte esterase, rbc's too numerous to count, wbc's too numerous to count. ASSESSMENT: This is an 84-year-old male. 1. Fever. 2. Urinary tract infection. 3. Shortness of breath. 4. Alzheimer's dementia. 5. Coronary artery disease. TREATMENT: 1. Fever/urinary tract infection. Patient has been placed empirically on cefepime and vancomycin. An Infectious Disease consultation has been obtained with Dr. Olson. We will follow recommendations of Infectious Disease. Urine culture and blood cultures are pending. 2. Shortness of breath and fevers concerning in an [facility] resident. A COVID-19 swab is pending. 3. Alzheimer's dementia. Continue Aricept and Namenda as above. 4. Coronary artery disease. Patient is status post coronary artery bypass graft. 5. Hypercholesterolemia. Continue atorvastatin as above. 6. Patient is DNR/DNI. Ramiro Harry M.D. DR: CHINA JOB#: [id number] CC: HENRY
[2020-02-04] VITALS: BP 105/56
--- NOTE | 2020-02-04 03:00 | Consultation ---
DATE OF CONSULTATION: 02/03/2020 CARDIOLOGY CONSULTATION CONSULTING PHYSICIAN: Dio Calzada MD. REFERRING PHYSICIAN: 1. Roby Grace MD. 2. Jefry Schwarz MD. REASON FOR REFERRAL: Sepsis and abnormal electrocardiogram. HISTORY OF PRESENT ILLNESS: This is an 84-year-old gentleman who is a resident of [facility]. [facility] to the emergency room and the ambulance report indicates that patient has flu-like symptoms. Per staff, patient started coughing approximately was shaking. Patient has a DNR with comfort measures only, but a history of dementia. He was noted to have rales bilaterally. Lying supine in bed with oxygen saturation 82%, blood pressure 86/48. He was placed on 15 L non-rebreather mask and was transferred to the emergency room. 500 mL of normal saline were infused. In the emergency room, was seen by the emergency room physician. It appears that he had urinary tract infection for which he was treated 2 weeks ago and according to the emergency room physician had increasing shortness of breath. Per the emergency room physician and my discussion with the nursing staff here, the patient was relatively calm today, although became more confused and started pulling out his IVs. He is on 15 L nasal cannula. He has not had any decrease in saturation as he is coughing. He has had no further fevers. PAST MEDICAL HISTORY: The chart indicates patient's past medical history is positive for history of coronary artery bypass grafting as well as a permanent pacemaker implantation as well as dementia and unfortunately no other data is available except what was noted above. He has had G-tube that also has been subsequently removed. I was not able to obtain any further information from [facility] on this patient. Nothing available at that facility in pertaining to his medical status. ALLERGIES: He has no known drug allergies according to the chart. SOCIAL HISTORY: No smoking or alcohol at the present time. REVIEW OF SYSTEMS: Not able to obtain from the patient, obtained from the nursing staff.GASTROINTESTINAL: There has been no reports of nausea, vomiting, or diarrhea. GENITOURINARY: No reports of any discomfort on urination. PULMONARY: Positive for coughing. CONSTITUTIONAL: He had some low-grade fevers. NEUROLOGICAL: He has become confused later in the afternoon. Nursing staff felt that the patient has probably sundowning. PHYSICAL EXAMINATION: Deferred secondary to COVID pending status. LABORATORY VALUES: He has had electrocardiogram that shows basically sinus rhythm with premature atrial contractions and what appears to be a leftward axis. Really no significant ST-T wave abnormality being noted. progression of course maybe lead placement. White count 6.3, hemoglobin 14, and platelet count of 160. Sodium is 139, potassium 4.8, chloride 105, bicarb 25, BUN 27, creatinine 1.4, and glucose of 143. Lactic acid initially 2.6 up to 1.8. Calcium is 8.3. Liver function tests are normal. Troponin 0.08. Albumin is 3.1. Urinalysis shows too numerous to count rbc's, wbc's, and 2+ ketones, positive nitrites, and there has been no other data is available. In the emergency room, the patient is documented to have temperature of 104.7. ASSESSMENT AND PLAN: 1. Respiratory decompensation. 2. Probable sepsis. 3. Dementia. 4. Coronary artery disease, status post coronary bypass grafting. 5. Urinary tract infection. 6. Renal insufficiency. This patient was seen in cardiac consultation. Patient has not endorsed any signs or symptoms of coronary syndrome according to the nursing staff. The patient's vital signs have been reviewed. Most recent blood pressure is 125/62 with heart rate of 91, temperature 97.3, 99% saturation documented on non-rebreather mask however. The patient being treated for possibility of pneumonia. COVID-19 testing is pending at this time. Cardiac enzymes will be ordered for tomorrow morning as well as EKG, however, this patient has reported advance directive for limited care and hydration will be continued. An echocardiogram will be ordered once the patient's COVID status is noted to be negative. Dio Calzada M.D. DR: ESAU JOB#: [id number] CC:
[2020-02-04 04:00] VITALS: BP 111/61
[2020-02-04] MEDS: D5NS 1,000 ML IV SCH (06:24)
[2020-02-04 07:15] LABS: ALBUMIN 2.1 G/DL (3.4-5.0); ANION GAP 6 mmol/L (5-15); BLOOD UREA NITROGEN 19 mg/dL (7-18); CARBON DIOXIDE 26 MMOL/L (21-32); CHLORIDE 113 MMOL/L (98-107); CREATININE 0.9 MG/DL (0.55-1.30); POTASSIUM 3.6 MMOL/L (3.5-5.1); SODIUM 144 MMOL/L (136-145)
--- NOTE | 2020-02-04 07:34 | NUR ---
HAND-OFF: Report given to LUIS Goode and LUIS Lemons. Patient shows no signs of distress. Endorsed plan of care.
--- NOTE | 2020-02-04 07:35 | NUR ---
NURSE NOTES: Received report from LUIS Person. in bed awake, alert, talking to self, unable to comprehend what he is saying. Reposition patient and made him comfortable. Patient is on simple mask 15L oxygen and tolerating well. No signs of pain or acute distress. F/C draining by gravity. IV is intact and patent running D5 NS at 50CC/HR. Bed is in lowest position. Side rails up x3, call light within reach. Will continue with the plan of care.
--- NOTE | 2020-02-04 07:36 | NUR ---
NURSE NOTES: Patient is on bilateral soft restraints for pulling devices and NPO pending ST evaluation. Will continue to monitor.
[2020-02-04 07:38] LABS: ALANINE AMINOTRANSFERASE 13 U/L (12-78); ALBUMIN 2.2 G/DL (3.4-5.0); ALBUMIN/GLOBULIN RATIO 0.7 (1.0-2.7); ALKALINE PHOSPHATASE 67 U/L (46-116); ANION GAP 8 mmol/L (5-15); ASPARTATE AMINO TRANSFERASE 27 U/L (15-37); BILIRUBIN,TOTAL 0.4 MG/DL (0.2-1.0); BLOOD UREA NITROGEN 19 mg/dL (7-18); CALCIUM 8.2 MG/DL (8.5-10.1); CARBON DIOXIDE 26 MMOL/L (21-32); CHLORIDE 113 MMOL/L (98-107); CHOLESTEROL 90 MG/DL (< 200); CREATININE 0.8 MG/DL (0.55-1.30); FERRITIN 385 NG/ML (8-388); GAMMA GLUTAMYL TRANSPEPTIDASE 13 U/L (5-85); HDL CHOLESTEROL 51 MG/DL (40-60); LACTATE DEHYDROGENASE 184 U/L (81-234); PHOSPHORUS 1.9 MG/DL (2.5-4.9); POTASSIUM 3.7 MMOL/L (3.5-5.1); SODIUM 147 MMOL/L (136-145); TRIGLYCERIDES 58 MG/DL (30-150)
[2020-02-04 07:48] LABS: % IRON SATURATION 11 % (15-50); IRON 11 ug/dL (50-175); TOTAL IRON BINDING CAPACITY 98 ug/dL (250-450)
[2020-02-04 08:00] VITALS: BP 126/59
[2020-02-04] MEDS: Donepezil 10mg tab ORAL SCH (08:33)
[2020-02-04] MEDS: Aspirin Baby 81mg ORAL SCH (08:34)
[2020-02-04] MEDS: Docusate 100mg cap ORAL SCH ×3 (08:34→18:54)
[2020-02-04] MEDS: Cefepime HCl 1 GM in D5W 55 ML IV SCH (08:35)
[2020-02-04] MEDS: Heparin 5000 units/ml inj SUBQ SCH ×2 (08:48→20:21)
--- NOTE | 2020-02-04 08:49 | NUR ---
RD ASSESSMENT & RECOMMENDATIONS SEE CARE ACTIVITY FOR COMPLETE ASSESSMENT DAILY ESTIMATED NEEDS: Needs based on Sepsis 54.1kg 30-35 kcals/kg 4862-3534 total kcals 1-2 g protein/kg 54-108 g total protein 25-30ml/kcal mL/kg 7848-8476 total fluid mLs NUTRITION DIAGNOSIS: Swallowing difficulty r/t h/o dementia, possible dysphagia as evidenced by pending HYDROLOGICAL TECHNICAL OFFICER nalini, currently NPO. PO DIET RECOMMENDATIONS: Liberalized Regular diet/ texture per HYDROLOGICAL TECHNICAL OFFICER ------ ADDITIONAL RECOMMENDATIONS: 1) For glycemic control, rec GLUCERNA as HPN -> Consult RD for non oral TF recs if not safe for oral po 2) Recalibrate bedscale for accurate CBW 119 lbs per SNF 3) Monitor lytes / hydration status w/ NPO-> currently on D5
--- NOTE | 2020-02-04 09:08 | NUR ---
CASE MANAGEMENT:REVIEW 02/04/20 SI: FEVER. UTI. SOB COVID 19 RESULTS PENDING 97.3 81 18 111/61 92% ON NON REBREATHER IS: IV CEFEPIME QD IVF@50/HR ARICEPT PO QD ASA PO QD HEPARIN SQ Q12 LIPITOR PO QHS COLACE PO TID PROTONIX PO Q12 : TELEMETRY STATUS DCP: FROM [facility]
--- NOTE | 2020-02-04 09:13 | NUR ---
DISCHARGE PLANNING NOT READY FOR DISCHARGE 1) COVID RESULTS PENDING 2) SATURATING 91% ON NON REBREATHER
--- NOTE | 2020-02-04 10:00 | NUR ---
NURSE NOTES: Covid 19 collected and sent to lab. Awaiting result.
[2020-02-04 11:09] LABS: BASOPHILS % (AUTO) 0.8 % (0.0-2.0); EOSINOPHILS % (AUTO) 0.2 % (0.0-3.0); HEMATOCRIT 33.6 % (42.0-52.0); HEMOGLOBIN 11.6 G/DL (14.2-18.0); LYMPHOCYTES % (AUTO) 8.6 % (20.0-45.0); MEAN CORPUSCULAR VOLUME 93 FL (80-99); MONOCYTES % (AUTO) 8.6 % (1.0-10.0); NEUTROPHILS % (AUTO) 81.7 % (45.0-75.0); PLATELET COUNT 109 K/UL (150-450); RED CELL DISTRIBUTION WIDTH 11.8 % (11.6-14.8)
[2020-02-04 12:00] VITALS: BP 125/60
--- NOTE | 2020-02-04 12:32 | Pulmonology Progress Note ---
Subjective ROS Limited/Unobtainable: Yes Allergies: Coded Allergies: No Known Allergies (Unverified , 02/03/20) Objective Last 24 Hour Vital Signs Date Time Temp Pulse Resp B/P (MAP) Pulse Ox O2 Delivery O2 Flow Rate FiO2 02/04/20 09:00 Simple Mask 15.0 02/04/20 08:00 97.8 90 20 126/59 (81) 96 02/04/20 08:00 90 02/04/20 04:00 97.3 81 18 111/61 (78) 92 02/04/20 04:00 66 02/04/20 03:14 Non-Rebreather 100 02/04/20 03:13 Non-Rebreather 02/04/20 00:00 97.5 83 18 105/56 (72) 91 02/04/20 00:00 77 02/03/20 23:04 Non-Rebreather 100 02/03/20 23:04 Non-Rebreather 02/03/20 21:00 Simple Mask 15.0 02/03/20 20:00 80 02/03/20 20:00 97.5 83 18 105/56 (72) 91 02/03/20 20:00 97.5 79 18 117/55 (75) 99 02/03/20 19:33 87 22 96 Non-Rebreather 100 02/03/20 19:33 87 22 96 Non-Rebreather 100 02/03/20 16:00 73 02/03/20 16:00 97.3 81 20 125/62 (83) 99 02/03/20 15:25 91 24 96 Non-Rebreather 100 02/03/20 15:25 91 24 96 Non-Rebreather 100 Intake and Output 02/03/20 02/04/20 19:00 07:00 Intake Total 350 ml Output Total 500 ml 200 ml Balance -150 ml -200 ml IV Total 350 ml Output Urine Total 500 ml 200 ml HEENT: normocephalic, atraumatic Respiratory/Chest: chest wall non-tender, lungs clear, crackles/rales, rhonchi Cardiovascular: normal peripheral pulses, normal rate Abdomen: normal bowel sounds, soft, non tender Extremities: no cyanosis, no clubbing Skin: no rash Musculoskeletal: atrophy Microbiology Date/Time Source Procedure Growth Status 02/03/20 04:15 Blood Blood Culture - Preliminary NO GROWTH AFTER 24 HOURS Resulted 02/03/20 04:00 Blood Blood Culture - Preliminary NO GROWTH AFTER 24 HOURS Resulted 02/03/20 04:32 Urine,Clean Catch Urine Culture - Preliminary Gram Negative Ernesto Resulted Laboratory Tests 02/04/20 04:00: White Blood Count 10.0#, Red Blood Count 3.60L, Hemoglobin 11.6L, Hematocrit 33.6L, Mean Corpuscular Volume 93, Mean Corpuscular Hemoglobin 32.1H, Mean Corpuscular Hemoglobin Concent 34.5, Red Cell Distribution Width 11.8, Platelet Count 109L, Mean Platelet Volume 6.0L, Neutrophils (%) (Auto) 81.7H, Lymphocytes (%) (Auto) 8.6L, Monocytes (%) (Auto) 8.6, Eosinophils (%) (Auto) 0.2, Basophils (%) (Auto) 0.8 02/04/20 05:15: D-Dimer 5.10H, Sodium Level 144, Potassium Level 3.6, Chloride Level 113H, Carbon Dioxide Level 26, Anion Gap 6, Blood Urea Nitrogen 19H, Creatinine 0.9, Estimat Glomerular Filtration Rate > 60, Glucose Level 117H, Hemoglobin A1c 5.8 , Lactic Acid Level 0.80, Uric Acid 2.7, Calcium Level 8.0L, Phosphorus Level 2.0L, Magnesium Level 2.2, Iron Level 11L, Total Iron Binding Capacity 98L, Percent Iron Saturation 11L, Unsaturated Iron Binding 87L, Ferritin 385, Total Bilirubin 0.4, Gamma Glutamyl Transpeptidase 13, Aspartate Amino Transf (AST/ SGOT) 27, Alanine Aminotransferase (ALT/SGPT) 13, Alkaline Phosphatase 67, Lactate Dehydrogenase 184, Troponin I 0.003, C-Reactive Protein, Quantitative 28.9H, Pro-B-Type Natriuretic Peptide 1707H, Total Protein 5.4L, Albumin 2.1L, Globulin 3.2, Albumin/Globulin Ratio 0.7L, Triglycerides Level 58, Cholesterol Level 90, LDL Cholesterol 33, HDL Cholesterol 51, Cholesterol/HDL Ratio 1.8L, Vitamin B12 Level 440, Folate 19.3, Thyroid Stimulating Hormone (TSH) 1.022, Cortisol AM Sample [Pending] Current Medications Medications (Trade) Dose Ordered Sig/Jodee Route PRN Reason Start Time Stop Time Status Last Admin Dose Admin Acetaminophen (Tylenol) 650 mg Q4H PRN ORAL fever 5/14/20 13:00 03/04/20 12:59 Albuterol/ Ipratropium (Albuterol/ Ipratropium) 3 ml Q4H PRN HHN Shortness of Breath 02/03/20 13:30 02/08/20 13:29 Aspirin (ASA) 81 mg DAILY ORAL 02/04/20 09:00 03/20/20 08:59 02/04/20 08:34 Atorvastatin Calcium (Lipitor) 20 mg BEDTIME ORAL 02/03/20 21:00 05/03/20 20:59 02/03/20 21:57 Cefepime HCl 1 gm/ Dextrose 55 ml @ 110 mls/hr DAILY IV 02/04/20 09:00 02/11/20 08:59 02/04/20 08:35 Dextrose/Sodium Chloride 1,000 ml @ 50 mls/hr Q20H IV 02/03/20 10:30 03/04/20 10:29 02/04/20 06:24 Docusate Sodium (Colace) 100 mg THREE TIMES A DAY ORAL 02/03/20 13:00 03/04/20 12:59 02/04/20 08:34 Donepezil HCl (Aricept) 20 mg DAILY ORAL 02/04/20 09:00 03/05/20 08:59 02/04/20 08:33 Heparin Sodium (Porcine) (Heparin 5000 units/ml) 5,000 units EVERY 12 HOURS SUBQ 02/03/20 21:00 03/19/20 20:59 02/04/20 08:48 Hydralazine HCl (Apresoline) 25 mg Q4H PRN ORAL For blood pressure over 160 sy 02/03/20 11:00 05/03/20 10:59 Nitroglycerin (Ntg) 0.4 mg Q5M PRN SL Prn Chest Pain 02/03/20 13:30 03/04/20 13:29 Ondansetron HCl (Zofran) 4 mg Q6H PRN IVP Nausea & Vomiting 02/03/20 13:30 03/04/20 13:29 Pantoprazole (Protonix) 40 mg EVERY 12 HOURS ORAL 02/03/20 11:00 03/04/20 10:59 02/04/20 08:33 Polyethylene Glycol (Miralax) 17 gm DAILYPRN PRN ORAL Constipation 02/03/20 13:30 03/04/20 13:29 Promethazine HCl/ Codeine (Phenergan with Codeine) 5 ml Q4H PRN ORAL For Cough 02/03/20 13:30 03/04/20 13:29 Temazepam (Restoril) 15 mg HSPRN PRN ORAL Insomnia 02/03/20 21:00 02/10/20 20:59 Vancomycin HCl (Vanco rx to dose) 1 ea DAILY PRN MISC Per rx protocol 02/03/20 12:45 03/04/20 12:44 Assessment/Plan Problems: (1) Nosocomial pneumonia (2) Suspected 2019-nCoV infection (3) At high risk for aspiration (4) Febrile illness, acute (5) Alzheimer's dementia (6) History of pacemaker (7) Severe protein-calorie malnutrition Assessment/Plan afebrile respiratory treatment check sputum Urine has GNB broad spectrum abx swallow study swallow study noted, diet ordered airborne isolation for now dvt prophylaxis Jefry Schwarz MD February 04, 2020 12:32
--- NOTE | 2020-02-04 12:37 | NUR ---
*-* INSURANCE *-* ALL AVAILABLE CLINICALS HAVE BEEN FAXED TO: [facility] [phone] FAX [phone] [address] [employer] & [employer] P: [phone]
--- NOTE | 2020-02-04 13:44 | Nephrology Progress Note ---
Assessment/Plan Problem List: (1) Dehydration (2) Suspected 2019-nCoV infection (3) Urinary tract infection (4) Pacemaker Assessment Renal failure most likely dehydration, may have underlying chronic kidney disease Suspected 2019-nCoV infection Febrile illness, acute Dementia Pneumonia Urinary tract infection Status post pacemaker Plan Slow IV hydration, watch for CHF symptoms Monitor renal parameters Urine studies Antibiotics per ID Avoid nephrotoxic's N.p.o. until speech therapy evaluation Per orders Subjective ROS Limited/Unobtainable: No Constitutional: Reports: malaise Objective Objective Last 24 Hour Vital Signs Date Time Temp Pulse Resp B/P (MAP) Pulse Ox O2 Delivery O2 Flow Rate FiO2 02/04/20 12:00 98.3 69 20 125/60 (81) 96 02/04/20 12:00 69 02/04/20 09:00 Simple Mask 15.0 02/04/20 08:00 97.8 90 20 126/59 (81) 96 02/04/20 08:00 90 02/04/20 04:00 97.3 81 18 111/61 (78) 92 02/04/20 04:00 66 02/04/20 03:14 Non-Rebreather 100 02/04/20 03:13 Non-Rebreather 02/04/20 00:00 97.5 83 18 105/56 (72) 91 02/04/20 00:00 77 02/03/20 23:04 Non-Rebreather 100 02/03/20 23:04 Non-Rebreather 02/03/20 21:00 Simple Mask 15.0 02/03/20 20:00 80 02/03/20 20:00 97.5 83 18 105/56 (72) 91 02/03/20 20:00 97.5 79 18 117/55 (75) 99 02/03/20 19:33 87 22 96 Non-Rebreather 100 02/03/20 19:33 87 22 96 Non-Rebreather 100 02/03/20 16:00 73 02/03/20 16:00 97.3 81 20 125/62 (83) 99 02/03/20 15:25 91 24 96 Non-Rebreather 100 02/03/20 15:25 91 24 96 Non-Rebreather 100 Intake and Output 02/03/20 02/04/20 19:00 07:00 Intake Total 350 ml Output Total 500 ml 200 ml Balance -150 ml -200 ml IV Total 350 ml Output Urine Total 500 ml 200 ml Laboratory Tests 02/04/20 04:00: White Blood Count 10.0#, Red Blood Count 3.60L, Hemoglobin 11.6L, Hematocrit 33.6L, Mean Corpuscular Volume 93, Mean Corpuscular Hemoglobin 32.1H, Mean Corpuscular Hemoglobin Concent 34.5, Red Cell Distribution Width 11.8, Platelet Count 109L, Mean Platelet Volume 6.0L, Neutrophils (%) (Auto) 81.7H, Lymphocytes (%) (Auto) 8.6L, Monocytes (%) (Auto) 8.6, Eosinophils (%) (Auto) 0.2, Basophils (%) (Auto) 0.8 02/04/20 05:15: D-Dimer 5.10H, Sodium Level 144, Potassium Level 3.6, Chloride Level 113H, Carbon Dioxide Level 26, Anion Gap 6, Blood Urea Nitrogen 19H, Creatinine 0.9, Estimat Glomerular Filtration Rate > 60, Glucose Level 117H, Hemoglobin A1c 5.8 , Lactic Acid Level 0.80, Uric Acid 2.7, Calcium Level 8.0L, Phosphorus Level 2.0L, Magnesium Level 2.2, Iron Level 11L, Total Iron Binding Capacity 98L, Percent Iron Saturation 11L, Unsaturated Iron Binding 87L, Ferritin 385, Total Bilirubin 0.4, Gamma Glutamyl Transpeptidase 13, Aspartate Amino Transf (AST/ SGOT) 27, Alanine Aminotransferase (ALT/SGPT) 13, Alkaline Phosphatase 67, Lactate Dehydrogenase 184, Troponin I 0.003, C-Reactive Protein, Quantitative 28.9H, Pro-B-Type Natriuretic Peptide 1707H, Total Protein 5.4L, Albumin 2.1L, Globulin 3.2, Albumin/Globulin Ratio 0.7L, Triglycerides Level 58, Cholesterol Level 90, LDL Cholesterol 33, HDL Cholesterol 51, Cholesterol/HDL Ratio 1.8L, Vitamin B12 Level 440, Folate 19.3, Thyroid Stimulating Hormone (TSH) 1.022, Cortisol AM Sample [Pending] Height (Feet): 5 Height (Inches): 6.00 Weight (Pounds): 115 General Appearance: no apparent distress Cardiovascular: tachycardia Respiratory/Chest: decreased breath sounds Abdomen: soft Cooper Chamorro MD February 04, 2020 13:44
[2020-02-04] MEDS ORDERED: Potassium Phosphate 20 MEQ in D5NS 1,000 ML IV SCH (14:00)
[2020-02-04] MEDS ORDERED: Iron Sucrose 200 MG in NS 110 ML IV SCH (14:00)
--- NOTE | 2020-02-04 14:02 | Infectious Diseases Prog Note ---
Assessment/Plan Assessment/Plan Assessment: Severe Sepsis Acute hypoxic respiratory failure- on simple mask 15L- high suspicion for COVID19 Pneumonia -CXR Right basilar infiltrate. UTI -u/a wbc tnct, nit +, leuk +3; ucx >100k GNR -BCx NTD Fever ( up to 104.8 upon admission);improving No leukocytosis Thrombocytopenia BRIANA, improving Lactic acidosis, SP hx of recent UTI (~2 weeks [employer]CE[employer]) Alzheimer's Dementia s/p PPM CAD s/p CABG dysphagia s/p GT (now removed) [place] resident ([facility]) - no reported COVID patients in this facility as of 02/03/20 DNR/DNI Plan: -Continue empiric IV Vancomycin and Cefepime #2 -02/02 SP Flagyl x1 -f/u cx -Monitor CBC/CMP, temperatures -COVID 19 isolation and testing -aspiration precautions Thank you for consulting [facility]. Will contiue to follow along with you. Discussed with RN. Subjective Allergies: Coded Allergies: No Known Allergies (Unverified , 02/03/20) Subjective afebrile >24hsr on simple mask, on 15 L Objective Vital Signs Last 24 Hour Vital Signs Date Time Temp Pulse Resp B/P (MAP) Pulse Ox O2 Delivery O2 Flow Rate FiO2 02/04/20 12:00 98.3 69 20 125/60 (81) 96 02/04/20 12:00 69 02/04/20 09:00 Simple Mask 15.0 02/04/20 08:00 97.8 90 20 126/59 (81) 96 02/04/20 08:00 90 02/04/20 04:00 97.3 81 18 111/61 (78) 92 02/04/20 04:00 66 02/04/20 03:14 Non-Rebreather 100 02/04/20 03:13 Non-Rebreather 02/04/20 00:00 97.5 83 18 105/56 (72) 91 02/04/20 00:00 77 02/03/20 23:04 Non-Rebreather 100 02/03/20 23:04 Non-Rebreather 02/03/20 21:00 Simple Mask 15.0 02/03/20 20:00 80 02/03/20 20:00 97.5 83 18 105/56 (72) 91 02/03/20 20:00 97.5 79 18 117/55 (75) 99 02/03/20 19:33 87 22 96 Non-Rebreather 100 02/03/20 19:33 87 22 96 Non-Rebreather 100 02/03/20 16:00 73 02/03/20 16:00 97.3 81 20 125/62 (83) 99 02/03/20 15:25 91 24 96 Non-Rebreather 100 02/03/20 15:25 91 24 96 Non-Rebreather 100 Height (Feet): 5 Height (Inches): 6.00 Weight (Pounds): 115 Objective not examined to limit COVID19 exposure Microbiology Date/Time Source Procedure Growth Status 02/03/20 04:15 Blood Blood Culture - Preliminary NO GROWTH AFTER 24 HOURS Resulted 02/03/20 04:00 Blood Blood Culture - Preliminary NO GROWTH AFTER 24 HOURS Resulted 02/03/20 04:32 Urine,Clean Catch Urine Culture - Preliminary Gram Negative Ernesto Resulted Laboratory Tests Test 02/04/20 04:00 02/04/20 05:15 White Blood Count 10.0 K/UL (4.8-10.8) # Red Blood Count 3.60 M/UL (4.70-6.10) L Hemoglobin 11.6 G/DL (14.2-18.0) L Hematocrit 33.6 % (42.0-52.0) L Mean Corpuscular Volume 93 FL (80-99) Mean Corpuscular Hemoglobin 32.1 PG (27.0-31.0) H Mean Corpuscular Hemoglobin Concent 34.5 G/DL (32.0-36.0) Red Cell Distribution Width 11.8 % (11.6-14.8) Platelet Count 109 K/UL (150-450) L Mean Platelet Volume 6.0 FL (6.5-10.1) L Neutrophils (%) (Auto) 81.7 % (45.0-75.0) H Lymphocytes (%) (Auto) 8.6 % (20.0-45.0) L Monocytes (%) (Auto) 8.6 % (1.0-10.0) Eosinophils (%) (Auto) 0.2 % (0.0-3.0) Basophils (%) (Auto) 0.8 % (0.0-2.0) D-Dimer 5.10 mg/L FEU (0.00-0.49) H Sodium Level 144 MMOL/L (136-145) Potassium Level 3.6 MMOL/L (3.5-5.1) Chloride Level 113 MMOL/L (98-107) H Carbon Dioxide Level 26 MMOL/L (21-32) Anion Gap 6 mmol/L (5-15) Blood Urea Nitrogen 19 mg/dL (7-18) H Creatinine 0.9 MG/DL (0.55-1.30) Estimat Glomerular Filtration Rate > 60 mL/min (>60) Glucose Level 117 MG/DL (74-106) H Hemoglobin A1c 5.8 % (4.3-6.0) Lactic Acid Level 0.80 mmol/L (0.4-2.0) Uric Acid 2.7 MG/DL (2.6-7.2) Calcium Level 8.0 MG/DL (8.5-10.1) L Phosphorus Level 2.0 MG/DL (2.5-4.9) L Magnesium Level 2.2 MG/DL (1.8-2.4) Iron Level 11 ug/dL (50-175) L Total Iron Binding Capacity 98 ug/dL (250-450) L Percent Iron Saturation 11 % (15-50) L Unsaturated Iron Binding 87 ug/dL (112-346) L Ferritin 385 NG/ML (8-388) Total Bilirubin 0.4 MG/DL (0.2-1.0) Gamma Glutamyl Transpeptidase 13 U/L (5-85) Aspartate Amino Transf (AST/SGOT) 27 U/L (15-37) Alanine Aminotransferase (ALT/SGPT) 13 U/L (12-78) Alkaline Phosphatase 67 U/L (46-116) Lactate Dehydrogenase 184 U/L (81-234) Troponin I 0.003 ng/mL (0.000-0.056) C-Reactive Protein, Quantitative 28.9 mg/dL (0.00-0.90) H Pro-B-Type Natriuretic Peptide 1707 pg/mL (0-125) H Total Protein 5.4 G/DL (6.4-8.2) L Albumin 2.1 G/DL (3.4-5.0) L Globulin 3.2 g/dL Albumin/Globulin Ratio 0.7 (1.0-2.7) L Triglycerides Level 58 MG/DL (30-150) Cholesterol Level 90 MG/DL (< 200) LDL Cholesterol 33 mg/dL (<100) HDL Cholesterol 51 MG/DL (40-60) Cholesterol/HDL Ratio 1.8 (3.3-4.4) L Vitamin B12 Level 440 PG/ML (193-986) Folate 19.3 NG/ML (8.6-58.9) Thyroid Stimulating Hormone (TSH) 1.022 uiU/mL (0.358-3.740) Cortisol AM Sample Pending Current Medications Medications (Trade) Dose Ordered Sig/Jodee Route PRN Reason Start Time Stop Time Status Last Admin Dose Admin Acetaminophen (Tylenol) 650 mg Q4H PRN ORAL fever 02/03/20 13:00 03/04/20 12:59 Albuterol/ Ipratropium (Albuterol/ Ipratropium) 3 ml Q4H PRN HHN Shortness of Breath 02/03/20 13:30 02/08/20 13:29 Aspirin (ASA) 81 mg DAILY ORAL 02/04/20 09:00 03/20/20 08:59 02/04/20 08:34 Atorvastatin Calcium (Lipitor) 20 mg BEDTIME ORAL 02/03/20 21:00 05/03/20 20:59 02/03/20 21:57 Cefepime HCl 1 gm/ Dextrose 55 ml @ 110 mls/hr DAILY IV 02/04/20 09:00 02/11/20 08:59 02/04/20 08:35 Docusate Sodium (Colace) 100 mg THREE TIMES A DAY ORAL 02/03/20 13:00 03/04/20 12:59 02/04/20 12:55 Donepezil HCl (Aricept) 20 mg DAILY ORAL 02/04/20 09:00 03/05/20 08:59 02/04/20 08:33 Heparin Sodium (Porcine) (Heparin 5000 units/ml) 5,000 units EVERY 12 HOURS SUBQ 02/03/20 21:00 03/19/20 20:59 02/04/20 08:48 Hydralazine HCl (Apresoline) 25 mg Q4H PRN ORAL For blood pressure over 160 sy 02/03/20 11:00 05/03/20 10:59 Iron Sucrose 200 mg/Sodium Chloride 120 ml @ 240 mls/hr ONCE IV 02/04/20 14:00 02/04/20 15:00 Nitroglycerin (Ntg) 0.4 mg Q5M PRN SL Prn Chest Pain 02/03/20 13:30 03/04/20 13:29 Ondansetron HCl (Zofran) 4 mg Q6H PRN IVP Nausea & Vomiting 02/03/20 13:30 03/04/20 13:29 Pantoprazole (Protonix) 40 mg EVERY 12 HOURS ORAL 02/03/20 11:00 03/04/20 10:59 02/04/20 08:33 Phosphorus (Phospha 250 Neutral) 250 mg THREE TIMES A DAY ORAL 02/04/20 18:00 03/05/20 17:59 Polyethylene Glycol (Miralax) 17 gm DAILYPRN PRN ORAL Constipation 02/03/20 13:30 03/04/20 13:29 Promethazine HCl/ Codeine (Phenergan with Codeine) 5 ml Q4H PRN ORAL For Cough 02/03/20 13:30 03/04/20 13:29 Temazepam (Restoril) 15 mg HSPRN PRN ORAL Insomnia 02/03/20 21:00 02/10/20 20:59 Vancomycin HCl (Vanco rx to dose) 1 ea DAILY PRN MISC Per rx protocol 02/03/20 12:45 03/04/20 12:44 Jocelyn Olson M.D. February 04, 2020 14:01
--- NOTE | 2020-02-04 15:51 | Internal Med Progress Note ---
Subjective Physician Name Roby Grace Attending Physician Roby Grace MD Current Medications Medications (Trade) Dose Ordered Sig/Jodee Route PRN Reason Start Time Stop Time Status Last Admin Dose Admin Acetaminophen (Tylenol) 650 mg Q4H PRN ORAL fever 02/03/20 13:00 03/04/20 12:59 Albuterol/ Ipratropium (Albuterol/ Ipratropium) 3 ml Q4H PRN HHN Shortness of Breath 02/03/20 13:30 02/08/20 13:29 Aspirin (ASA) 81 mg DAILY ORAL 02/04/20 09:00 03/20/20 08:59 02/04/20 08:34 Atorvastatin Calcium (Lipitor) 20 mg BEDTIME ORAL 02/03/20 21:00 05/03/20 20:59 02/03/20 21:57 Cefepime HCl 1 gm/ Dextrose 55 ml @ 110 mls/hr DAILY IV 02/04/20 09:00 02/11/20 08:59 02/04/20 08:35 Docusate Sodium (Colace) 100 mg THREE TIMES A DAY ORAL 02/03/20 13:00 03/04/20 12:59 02/04/20 12:55 Donepezil HCl (Aricept) 20 mg DAILY ORAL 02/04/20 09:00 03/05/20 08:59 02/04/20 08:33 Heparin Sodium (Porcine) (Heparin 5000 units/ml) 5,000 units EVERY 12 HOURS SUBQ 02/03/20 21:00 03/19/20 20:59 02/04/20 08:48 Hydralazine HCl (Apresoline) 25 mg Q4H PRN ORAL For blood pressure over 160 sy 02/03/20 11:00 05/03/20 10:59 Nitroglycerin (Ntg) 0.4 mg Q5M PRN SL Prn Chest Pain 02/03/20 13:30 03/04/20 13:29 Ondansetron HCl (Zofran) 4 mg Q6H PRN IVP Nausea & Vomiting 02/03/20 13:30 03/04/20 13:29 Pantoprazole (Protonix) 40 mg EVERY 12 HOURS ORAL 02/03/20 11:00 03/04/20 10:59 02/04/20 08:33 Phosphorus (Phospha 250 Neutral) 250 mg THREE TIMES A DAY ORAL 02/04/20 18:00 03/05/20 17:59 Polyethylene Glycol (Miralax) 17 gm DAILYPRN PRN ORAL Constipation 02/03/20 13:30 03/04/20 13:29 Promethazine HCl/ Codeine (Phenergan with Codeine) 5 ml Q4H PRN ORAL For Cough 02/03/20 13:30 03/04/20 13:29 Temazepam (Restoril) 15 mg HSPRN PRN ORAL Insomnia 02/03/20 21:00 02/10/20 20:59 Vancomycin HCl (Vanco rx to dose) 1 ea DAILY PRN MISC Per rx protocol 02/03/20 12:45 03/04/20 12:44 Allergies: Coded Allergies: No Known Allergies (Unverified , 02/03/20) Subjective Awake, alert, responsive, shortness of breath, denies any cough, denies any fever or chills. Objective Last Vital Signs Date Time Temp Pulse Resp B/P (MAP) Pulse Ox O2 Delivery O2 Flow Rate FiO2 02/04/20 12:00 98.3 69 20 125/60 (81) 96 02/04/20 09:00 Simple Mask 15.0 02/04/20 03:14 100 Laboratory Tests Test 02/04/20 04:00 02/04/20 05:15 White Blood Count 10.0 K/UL (4.8-10.8) # Red Blood Count 3.60 M/UL (4.70-6.10) L Hemoglobin 11.6 G/DL (14.2-18.0) L Hematocrit 33.6 % (42.0-52.0) L Mean Corpuscular Volume 93 FL (80-99) Mean Corpuscular Hemoglobin 32.1 PG (27.0-31.0) H Mean Corpuscular Hemoglobin Concent 34.5 G/DL (32.0-36.0) Red Cell Distribution Width 11.8 % (11.6-14.8) Platelet Count 109 K/UL (150-450) L Mean Platelet Volume 6.0 FL (6.5-10.1) L Neutrophils (%) (Auto) 81.7 % (45.0-75.0) H Lymphocytes (%) (Auto) 8.6 % (20.0-45.0) L Monocytes (%) (Auto) 8.6 % (1.0-10.0) Eosinophils (%) (Auto) 0.2 % (0.0-3.0) Basophils (%) (Auto) 0.8 % (0.0-2.0) D-Dimer 5.10 mg/L FEU (0.00-0.49) H Sodium Level 144 MMOL/L (136-145) Potassium Level 3.6 MMOL/L (3.5-5.1) Chloride Level 113 MMOL/L (98-107) H Carbon Dioxide Level 26 MMOL/L (21-32) Anion Gap 6 mmol/L (5-15) Blood Urea Nitrogen 19 mg/dL (7-18) H Creatinine 0.9 MG/DL (0.55-1.30) Estimat Glomerular Filtration Rate > 60 mL/min (>60) Glucose Level 117 MG/DL (74-106) H Hemoglobin A1c 5.8 % (4.3-6.0) Lactic Acid Level 0.80 mmol/L (0.4-2.0) Uric Acid 2.7 MG/DL (2.6-7.2) Calcium Level 8.0 MG/DL (8.5-10.1) L Phosphorus Level 2.0 MG/DL (2.5-4.9) L Magnesium Level 2.2 MG/DL (1.8-2.4) Iron Level 11 ug/dL (50-175) L Total Iron Binding Capacity 98 ug/dL (250-450) L Percent Iron Saturation 11 % (15-50) L Unsaturated Iron Binding 87 ug/dL (112-346) L Ferritin 385 NG/ML (8-388) Total Bilirubin 0.4 MG/DL (0.2-1.0) Gamma Glutamyl Transpeptidase 13 U/L (5-85) Aspartate Amino Transf (AST/SGOT) 27 U/L (15-37) Alanine Aminotransferase (ALT/SGPT) 13 U/L (12-78) Alkaline Phosphatase 67 U/L (46-116) Lactate Dehydrogenase 184 U/L (81-234) Troponin I 0.003 ng/mL (0.000-0.056) C-Reactive Protein, Quantitative 28.9 mg/dL (0.00-0.90) H Pro-B-Type Natriuretic Peptide 1707 pg/mL (0-125) H Total Protein 5.4 G/DL (6.4-8.2) L Albumin 2.1 G/DL (3.4-5.0) L Globulin 3.2 g/dL Albumin/Globulin Ratio 0.7 (1.0-2.7) L Triglycerides Level 58 MG/DL (30-150) Cholesterol Level 90 MG/DL (< 200) LDL Cholesterol 33 mg/dL (<100) HDL Cholesterol 51 MG/DL (40-60) Cholesterol/HDL Ratio 1.8 (3.3-4.4) L Vitamin B12 Level 440 PG/ML (193-986) Folate 19.3 NG/ML (8.6-58.9) Thyroid Stimulating Hormone (TSH) 1.022 uiU/mL (0.358-3.740) Cortisol AM Sample Pending Microbiology Date/Time Source Procedure Growth Status 02/03/20 04:15 Blood Blood Culture - Preliminary NO GROWTH AFTER 24 HOURS Resulted 02/03/20 04:00 Blood Blood Culture - Preliminary NO GROWTH AFTER 24 HOURS Resulted 02/03/20 04:32 Urine,Clean Catch Urine Culture - Preliminary Gram Negative Ernesto Resulted Intake and Output 02/03/20 02/04/20 19:00 07:00 Intake Total 350 ml Output Total 500 ml 200 ml Balance -150 ml -200 ml IV Total 350 ml Output Urine Total 500 ml 200 ml Objective General: No acute distress, awake and alert HEENT: NCAT, sclera anicteric, PERRL, EOMI. Neck: Supple, no significant jugular venous distention, Lungs: Fair inspiratory effort, decreased air at the bases, no Wheeze or Rales. Heart: Regular rate and rhythm, normal S1/S2, no murmurs, + PPM. Abdomen: soft, nontender, nondistended. Normoactive bowel sounds. / Rectal: Refused and deferred. Extremities: No Cyanosis , clubbing or edema. Neuro: A&O x 3, Able to move all extremities Skin: warm, no rash, Assessment/Plan Assessment/Plan Severe Sepsis Acute hypoxic respiratory failure- on simple mask 15L- high suspicion for COVID19 Pneumonia Acute UTI Thrombocytopenia BRIANA, improving Lactic acidosis, SP hx of recent UTI (~2 weeks [employer]) Alzheimer's Dementia s/p PPM CAD s/p CABG dysphagia s/p GT (now removed) [place] resident ([facility]) - no reported COVID patients in this facility as of 02/03/20 Plan: -Continue empiric IV Vancomycin and Cefepime #2 -02/02 SP Flagyl x1 -CODE STATUS: DNR/DNI -Follow-up with cultures and laboratories in a.m. -Passed the swallow study will start on diet. -DVT prophylaxis: Heparin subcu. -Follow-up with COVID-19 culture. -2D Echo once is clear from COVID-19 infection Roby Grace MD February 04, 2020 15:51
[2020-02-04 16:00] VITALS: BP 132/63
--- NOTE | 2020-02-04 16:30 | Diagnostic Imaging Report ---
Procedure: XRAY Chest 1v Reason for study: Fever and shortness of breath. Comparison films: None. FINDINGS: Cardiac pacer noted the left upper chest. Patient status post CABG. Vascularity is normal. There is right basilar infiltrate. Cardiac and mediastinal silhouette are within normal limits. CP angles are sharp. The bony thorax appear unremarkable. IMPRESSION: Right basilar infiltrate.
--- NOTE | 2020-02-04 18:37 | Cardiology Progress Note ---
Assessment/Plan Assessment/Plan 1. Respiratory decompensation. 2. Probable sepsis. 3. Dementia. 4. Coronary artery disease, status post coronary bypass grafting. 5. Urinary tract infection. 6. Renal insufficiency. trop neg probnp in min increase covid testing is still pending labs noted no fever per rn not coughing fever ar improved on empiric abx there apparently not have been any pt with covid + at the snf the pat has been staying at tele sinus intermittent v pacing echo if needed once covid excluded Subjective ROS Limited/Unobtainable: Yes Respiratory: Denies: cough Gastrointestinal/Abdominal: Denies: abdominal pain, diarrhea, vomiting Objective Last 24 Hour Vital Signs Date Time Temp Pulse Resp B/P (MAP) Pulse Ox O2 Delivery O2 Flow Rate FiO2 02/04/20 16:00 80 02/04/20 12:00 98.3 69 20 125/60 (81) 96 02/04/20 12:00 69 02/04/20 09:00 Simple Mask 15.0 02/04/20 08:00 97.8 90 20 126/59 (81) 96 02/04/20 08:00 90 02/04/20 04:00 97.3 81 18 111/61 (78) 92 02/04/20 04:00 66 02/04/20 03:14 Non-Rebreather 100 02/04/20 03:13 Non-Rebreather 02/04/20 00:00 97.5 83 18 105/56 (72) 91 02/04/20 00:00 77 02/03/20 23:04 Non-Rebreather 100 02/03/20 23:04 Non-Rebreather 02/03/20 21:00 Simple Mask 15.0 02/03/20 20:00 80 02/03/20 20:00 97.5 83 18 105/56 (72) 91 02/03/20 20:00 97.5 79 18 117/55 (75) 99 02/03/20 19:33 87 22 96 Non-Rebreather 100 02/03/20 19:33 87 22 96 Non-Rebreather 100 General Appearance: no apparent distress, patient on isolation Intake and Output 02/03/20 02/04/20 19:00 07:00 Intake Total 350 ml Output Total 500 ml 200 ml Balance -150 ml -200 ml IV Total 350 ml Output Urine Total 500 ml 200 ml Laboratory Tests Test 02/04/20 04:00 02/04/20 05:15 White Blood Count 10.0 K/UL (4.8-10.8) # Red Blood Count 3.60 M/UL (4.70-6.10) L Hemoglobin 11.6 G/DL (14.2-18.0) L Hematocrit 33.6 % (42.0-52.0) L Mean Corpuscular Volume 93 FL (80-99) Mean Corpuscular Hemoglobin 32.1 PG (27.0-31.0) H Mean Corpuscular Hemoglobin Concent 34.5 G/DL (32.0-36.0) Red Cell Distribution Width 11.8 % (11.6-14.8) Platelet Count 109 K/UL (150-450) L Mean Platelet Volume 6.0 FL (6.5-10.1) L Neutrophils (%) (Auto) 81.7 % (45.0-75.0) H Lymphocytes (%) (Auto) 8.6 % (20.0-45.0) L Monocytes (%) (Auto) 8.6 % (1.0-10.0) Eosinophils (%) (Auto) 0.2 % (0.0-3.0) Basophils (%) (Auto) 0.8 % (0.0-2.0) D-Dimer 5.10 mg/L FEU (0.00-0.49) H Sodium Level 144 MMOL/L (136-145) Potassium Level 3.6 MMOL/L (3.5-5.1) Chloride Level 113 MMOL/L (98-107) H Carbon Dioxide Level 26 MMOL/L (21-32) Anion Gap 6 mmol/L (5-15) Blood Urea Nitrogen 19 mg/dL (7-18) H Creatinine 0.9 MG/DL (0.55-1.30) Estimat Glomerular Filtration Rate > 60 mL/min (>60) Glucose Level 117 MG/DL (74-106) H Hemoglobin A1c 5.8 % (4.3-6.0) Lactic Acid Level 0.80 mmol/L (0.4-2.0) Uric Acid 2.7 MG/DL (2.6-7.2) Calcium Level 8.0 MG/DL (8.5-10.1) L Phosphorus Level 2.0 MG/DL (2.5-4.9) L Magnesium Level 2.2 MG/DL (1.8-2.4) Iron Level 11 ug/dL (50-175) L Total Iron Binding Capacity 98 ug/dL (250-450) L Percent Iron Saturation 11 % (15-50) L Unsaturated Iron Binding 87 ug/dL (112-346) L Ferritin 385 NG/ML (8-388) Total Bilirubin 0.4 MG/DL (0.2-1.0) Gamma Glutamyl Transpeptidase 13 U/L (5-85) Aspartate Amino Transf (AST/SGOT) 27 U/L (15-37) Alanine Aminotransferase (ALT/SGPT) 13 U/L (12-78) Alkaline Phosphatase 67 U/L (46-116) Lactate Dehydrogenase 184 U/L (81-234) Troponin I 0.003 ng/mL (0.000-0.056) C-Reactive Protein, Quantitative 28.9 mg/dL (0.00-0.90) H Pro-B-Type Natriuretic Peptide 1707 pg/mL (0-125) H Total Protein 5.4 G/DL (6.4-8.2) L Albumin 2.1 G/DL (3.4-5.0) L Globulin 3.2 g/dL Albumin/Globulin Ratio 0.7 (1.0-2.7) L Triglycerides Level 58 MG/DL (30-150) Cholesterol Level 90 MG/DL (< 200) LDL Cholesterol 33 mg/dL (<100) HDL Cholesterol 51 MG/DL (40-60) Cholesterol/HDL Ratio 1.8 (3.3-4.4) L Vitamin B12 Level 440 PG/ML (193-986) Folate 19.3 NG/ML (8.6-58.9) Thyroid Stimulating Hormone (TSH) 1.022 uiU/mL (0.358-3.740) Cortisol AM Sample 14.4 UG/DL Microbiology Date/Time Source Procedure Growth Status 02/03/20 04:15 Blood Blood Culture - Preliminary NO GROWTH AFTER 24 HOURS Resulted 02/03/20 04:00 Blood Blood Culture - Preliminary NO GROWTH AFTER 24 HOURS Resulted 02/03/20 04:32 Urine,Clean Catch Urine Culture - Preliminary Gram Negative Ernesto Resulted Dio Calzada MD February 04, 2020 18:37
[2020-02-04] MEDS: Phospha 250 Neutral tab ORAL SCH (18:53)
--- NOTE | 2020-02-04 19:14 | NUR ---
HAND-OFF: Report given to LUIS Person. Patient is in stable condition.
[2020-02-04 20:00] VITALS: BP 142/68
--- NOTE | 2020-02-04 20:05 | NUR ---
NURSE NOTES: Received patient report from LUIS Goode and LUIS Lemons. Patient AO x1. Shows no signs of distress or pain at the time. Patient is still in restraints. IV intact. There are no signs of erythema, bleeding, or infiltration. Bed in the lowest position, call light within reach, side rails up x 3, and bed alarm on. Hill catheter draining. Will continue plan of care.
[2020-02-04] MEDS: Atorvastatin 20mg tab ORAL SCH (21:09)
[2020-02-05] VITALS: BP 139/65
[2020-02-05 04:00] VITALS: BP 146/66
[2020-02-05 06:08] LABS: HEMATOCRIT 33.9 % (42.0-52.0); HEMOGLOBIN 11.8 G/DL (14.2-18.0); MEAN CORPUSCULAR VOLUME 92 FL (80-99); PLATELET COUNT 123 K/UL (150-450); RED BLOOD COUNT 3.66 M/UL (4.70-6.10); RED CELL DISTRIBUTION WIDTH 11.5 % (11.6-14.8); WHITE BLOOD COUNT 11.2 K/UL (4.8-10.8)
--- NOTE | 2020-02-05 06:17 | NUR ---
NURSE NOTES: Yesterday patient had a scab on left elbow, today it was an open wound. Picture taken. Patient continues to be on restraints but at times he has gotten lose. He scratched at his scab.
--- NOTE | 2020-02-05 07:08 | Pulmonology Progress Note ---
Subjective ROS Limited/Unobtainable: Yes Allergies: Coded Allergies: No Known Allergies (Unverified , 02/03/20) Subjective no fevers, mild leuk this am on simple mask, no resp distress Objective Last 24 Hour Vital Signs Date Time Temp Pulse Resp B/P (MAP) Pulse Ox O2 Delivery O2 Flow Rate FiO2 02/05/20 04:00 97.8 80 20 146/66 (92) 100 02/05/20 04:00 79 02/05/20 00:00 83 02/05/20 00:00 97.4 76 20 139/65 (89) 96 02/04/20 21:00 Simple Mask 15.0 02/04/20 20:00 76 02/04/20 20:00 97.2 80 20 142/68 (92) 100 02/04/20 16:00 97.8 79 20 132/63 (86) 96 02/04/20 16:00 80 02/04/20 12:00 98.3 69 20 125/60 (81) 96 02/04/20 12:00 69 02/04/20 09:00 Simple Mask 15.0 02/04/20 08:00 97.8 90 20 126/59 (81) 96 02/04/20 08:00 90 Intake and Output 02/04/20 02/05/20 19:00 07:00 Intake Total 340 ml Output Total 1200 ml 400 ml Balance -860 ml -400 ml Intake Oral 340 ml Output Urine Total 1200 ml 400 ml General Appearance: no acute distress HEENT: normocephalic, atraumatic, anicteric Respiratory: decreased breath sounds, rhonchi - right, other Cardiovascular: normal rate Abdomen: soft, non tender, non distended Extremities: no edema Neurologic: abnormal gait, alert Musculoskeletal: atrophy Microbiology Date/Time Source Procedure Growth Status 02/03/20 04:15 Blood Blood Culture - Preliminary NO GROWTH AFTER 24 HOURS Resulted 02/03/20 04:00 Blood Blood Culture - Preliminary NO GROWTH AFTER 24 HOURS Resulted 02/03/20 04:00 Nasal Nares MRSA Culture - Final NO METHICILLIN RESISTANT STAPH AUREUS... Complete 02/03/20 04:32 Urine,Clean Catch Urine Culture - Final Escherichia Coli Complete 02/03/20 04:00 Rectum VRE Culture - Final NO VANCOMYCIN RESISTANT ENTEROCOCCUS ... Complete 02/03/20 04:00 Rectum - Final NO CARBAPENEM-RESISTANT ENTEROBACTERI... Complete Laboratory Tests 02/05/20 04:00: White Blood Count 11.2H, Red Blood Count 3.66L, Hemoglobin 11.8L, Hematocrit 33.9L, Mean Corpuscular Volume 92, Mean Corpuscular Hemoglobin 32.3H, Mean Corpuscular Hemoglobin Concent 34.9, Red Cell Distribution Width 11.5L, Platelet Count 123L, Mean Platelet Volume 6.7, Neutrophils (%) (Auto) , Lymphocytes (%) (Auto) , Monocytes (%) (Auto) , Eosinophils (%) (Auto) , Basophils (%) (Auto) , Neutrophils % (Manual) [Pending], Lymphocytes % (Manual) [Pending], Platelet Estimate [Pending], Platelet Morphology [Pending], Erythrocyte Sedimentation Rate [Pending], Sodium Level [Pending], Potassium Level [Pending], Chloride Level [Pending], Carbon Dioxide Level [Pending], Blood Urea Nitrogen [Pending], Creatinine [Pending], Estimat Glomerular Filtration Rate [Pending], Glucose Level [Pending], Calcium Level [Pending], Phosphorus Level [Pending], Magnesium Level [Pending], Total Bilirubin [Pending] , Aspartate Amino Transf (AST/SGOT) [Pending], Alanine Aminotransferase (ALT/ SGPT) [Pending], Alkaline Phosphatase [Pending], C-Reactive Protein, Quantitative [Pending], Total Protein [Pending], Albumin [Pending], Globulin [ Pending], Random Vancomycin Level [Pending] Current Medications Medications (Trade) Dose Ordered Sig/Jodee Route PRN Reason Start Time Stop Time Status Last Admin Dose Admin Acetaminophen (Tylenol) 650 mg Q4H PRN ORAL fever 02/03/20 13:00 03/04/20 12:59 Albuterol/ Ipratropium (Albuterol/ Ipratropium) 3 ml Q4H PRN HHN Shortness of Breath 02/03/20 13:30 02/08/20 13:29 Aspirin (ASA) 81 mg DAILY ORAL 02/04/20 09:00 03/20/20 08:59 02/04/20 08:34 Atorvastatin Calcium (Lipitor) 20 mg BEDTIME ORAL 02/03/20 21:00 8/12/20 20:59 02/04/20 21:09 Cefepime HCl 1 gm/ Dextrose 55 ml @ 110 mls/hr DAILY IV 02/04/20 09:00 02/11/20 08:59 02/04/20 08:35 Docusate Sodium (Colace) 100 mg THREE TIMES A DAY ORAL 02/03/20 13:00 03/04/20 12:59 02/04/20 18:54 Donepezil HCl (Aricept) 20 mg DAILY ORAL 02/04/20 09:00 03/05/20 08:59 02/04/20 08:33 Heparin Sodium (Porcine) (Heparin 5000 units/ml) 5,000 units EVERY 12 HOURS SUBQ 02/03/20 21:00 03/19/20 20:59 02/04/20 08:48 Hydralazine HCl (Apresoline) 25 mg Q4H PRN ORAL For blood pressure over 160 sy 02/03/20 11:00 05/03/20 10:59 Memantine (Namenda) 10 mg DAILY ORAL 02/05/20 09:00 03/06/20 08:59 Nitroglycerin (Ntg) 0.4 mg Q5M PRN SL Prn Chest Pain 02/03/20 13:30 03/04/20 13:29 Ondansetron HCl (Zofran) 4 mg Q6H PRN IVP Nausea & Vomiting 02/03/20 13:30 03/04/20 13:29 Pantoprazole (Protonix) 40 mg EVERY 12 HOURS ORAL 02/03/20 11:00 03/04/20 10:59 02/04/20 21:09 Phosphorus (Phospha 250 Neutral) 250 mg THREE TIMES A DAY ORAL 02/04/20 18:00 03/05/20 17:59 02/04/20 18:53 Polyethylene Glycol (Miralax) 17 gm DAILYPRN PRN ORAL Constipation 02/03/20 13:30 03/04/20 13:29 Promethazine HCl/ Codeine (Phenergan with Codeine) 5 ml Q4H PRN ORAL For Cough 02/03/20 13:30 03/04/20 13:29 Temazepam (Restoril) 15 mg HSPRN PRN ORAL Insomnia 02/03/20 21:00 02/10/20 20:59 Vancomycin HCl (Vanco rx to dose) 1 ea DAILY PRN MISC Per rx protocol 02/03/20 12:45 03/04/20 12:44 Assessment/Plan Assessment/Plan ASSESSMENT Severe sepsis Suspected COVID-19 infection Acute hypoxemic RF requiring NRM PNA UTI E coli BRIANA possibly on underlying CKD Dehydration CAD, s/p CABG pacemaker severe protein calorie malnutrition anemia Alzheimer dementia aspiration risk e/lyte imbalance / K, P PLAN OF CARE tele isolation titrate O2 to keep sat above 92 pulmonary toilet antitussive prn fevers resolved weaned from NRM to simple mask swallow eval aspiration precaution fup with CXR initial CXR R base infiltrate abx as per ID BCX 5.14 NGTD UCX 02/02 E coli SARS-CoV-2 02/02 by PCR pending gentle IV hydration monitor renal parameters lytes replace K and P today DVT GI prophylaxis Continue ASA and statin protein supplement as per RD recs monitor H&H with goal to keep Hgb above 7, anemia w/up noted DNR/DNI status case discussed and evaluated by supervising physician Fabiola Bridges NP February 05, 2020 07:08
--- NOTE | 2020-02-05 07:35 | NUR ---
HAND-OFF: Report given to LUIS Philip. Patient shows no signs of distress or pain at the time. Endorsed plan of care.
[2020-02-05 07:41] LABS: ALANINE AMINOTRANSFERASE 23 U/L (12-78); ALBUMIN 2.5 G/DL (3.4-5.0); ALBUMIN/GLOBULIN RATIO 0.8 (1.0-2.7); ALKALINE PHOSPHATASE 72 U/L (46-116); ANION GAP 13 mmol/L (5-15); ASPARTATE AMINO TRANSFERASE 31 U/L (15-37); BILIRUBIN,TOTAL 0.5 MG/DL (0.2-1.0); BLOOD UREA NITROGEN 18 mg/dL (7-18); CALCIUM 8.3 MG/DL (8.5-10.1); CARBON DIOXIDE 24 MMOL/L (21-32); CHLORIDE 111 MMOL/L (98-107); CREATININE 0.7 MG/DL (0.55-1.30); POTASSIUM 3.5 MMOL/L (3.5-5.1); SODIUM 147 MMOL/L (136-145)
--- NOTE | 2020-02-05 07:53 | NUR ---
NURSE NOTES: Report received from Naya SMITH. Patient stable AOx1. Got out restraints and out of bed. Restraints replaced and patient has good ROM, sensation and circulation. RR even and unlabored on simple mask 15L. No s/sx of pain or distress. Side rails upx2, call light within reach, bed low and locked. Will continue to monitor.
[2020-02-05 08:00] VITALS: BP 137/70
[2020-02-05] MEDS ORDERED: Potassium Phosphate 15mm/250ml 250 ML IVPB ONE (08:30)
[2020-02-05] MEDS: Heparin 5000 units/ml inj SUBQ SCH ×2 (09:00→21:00)
[2020-02-05] MEDS: Cefepime HCl 1 GM in D5W 55 ML IV SCH (09:19)
[2020-02-05] MEDS: Memantine 10mg tab ORAL SCH (09:19)
[2020-02-05] MEDS: Donepezil 10mg tab ORAL SCH (09:19)
[2020-02-05] MEDS: Aspirin Baby 81mg ORAL SCH (09:19)
[2020-02-05] MEDS: Phospha 250 Neutral tab ORAL SCH ×3 (09:19→17:54)
[2020-02-05] MEDS: Docusate 100mg cap ORAL SCH ×3 (09:19→17:54)
--- NOTE | 2020-02-05 09:48 | Infectious Diseases Prog Note ---
Assessment/Plan Assessment/Plan Assessment: Severe Sepsis Acute hypoxic respiratory failure- on simple mask 15L- high suspicion for COVID19 Pneumonia -CXR Right basilar infiltrate. UTI -u/a wbc tnct, nit +, leuk +3; ucx >100k GNR -BCx NTD Fever ( up to 104.8 upon admission);improving No leukocytosis Thrombocytopenia BRIANA, improving Lactic acidosis, SP hx of recent UTI (~2 weeks [employer]) Alzheimer's Dementia s/p PPM CAD s/p CABG dysphagia s/p GT (now removed) [place] resident ([facility]) - no reported COVID patients in this facility as of 02/03/20 DNR/DNI Plan: -Continue empiric IV Vancomycin and Cefepime #3 - pending Cx -02/02 SP Flagyl x1 -f/u cx -Monitor CBC/CMP, temperatures -COVID 19 isolation and testing -aspiration precautions Thank you for consulting [facility]. Will continue to follow along with you. Discussed with RN. Subjective Allergies: Coded Allergies: No Known Allergies (Unverified , 02/03/20) Subjective Aferbile Mild Leukocytosis Urine Cx - E. coli - Blank sen Objective Vital Signs Last 24 Hour Vital Signs Date Time Temp Pulse Resp B/P (MAP) Pulse Ox O2 Delivery O2 Flow Rate FiO2 02/05/20 08:00 97.2 72 18 137/70 (92) 100 02/05/20 08:00 75 02/05/20 04:00 97.8 80 20 146/66 (92) 100 02/05/20 04:00 79 02/05/20 00:00 83 02/05/20 00:00 97.4 76 20 139/65 (89) 96 02/04/20 21:00 Simple Mask 15.0 02/04/20 20:00 76 02/04/20 20:00 97.2 80 20 142/68 (92) 100 02/04/20 16:00 97.8 79 20 132/63 (86) 96 02/04/20 16:00 80 02/04/20 12:00 98.3 69 20 125/60 (81) 96 02/04/20 12:00 69 Height (Feet): 5 Height (Inches): 6.00 Weight (Pounds): 115 Objective Patient not examined to day in order to conserve PPE Patient clinical status discussed with nurse and other physician notes and exams reviewed Microbiology Date/Time Source Procedure Growth Status 02/03/20 04:15 Blood Blood Culture - Preliminary NO GROWTH AFTER 24 HOURS Resulted 02/03/20 04:00 Blood Blood Culture - Preliminary NO GROWTH AFTER 24 HOURS Resulted 02/03/20 04:00 Nasal Nares MRSA Culture - Final NO METHICILLIN RESISTANT STAPH AUREUS... Complete 02/03/20 04:32 Urine,Clean Catch Urine Culture - Final Escherichia Coli Complete 02/03/20 04:00 Rectum VRE Culture - Final NO VANCOMYCIN RESISTANT ENTEROCOCCUS ... Complete 02/03/20 04:00 Rectum - Final NO CARBAPENEM-RESISTANT ENTEROBACTERI... Complete Laboratory Tests Test 02/05/20 04:00 White Blood Count 11.2 K/UL (4.8-10.8) H Red Blood Count 3.66 M/UL (4.70-6.10) L Hemoglobin 11.8 G/DL (14.2-18.0) L Hematocrit 33.9 % (42.0-52.0) L Mean Corpuscular Volume 92 FL (80-99) Mean Corpuscular Hemoglobin 32.3 PG (27.0-31.0) H Mean Corpuscular Hemoglobin Concent 34.9 G/DL (32.0-36.0) Red Cell Distribution Width 11.5 % (11.6-14.8) L Platelet Count 123 K/UL (150-450) L Mean Platelet Volume 6.7 FL (6.5-10.1) Neutrophils (%) (Auto) % (45.0-75.0) Lymphocytes (%) (Auto) % (20.0-45.0) Monocytes (%) (Auto) % (1.0-10.0) Eosinophils (%) (Auto) % (0.0-3.0) Basophils (%) (Auto) % (0.0-2.0) Differential Total Cells Counted 100 Neutrophils % (Manual) 87 % (45-75) H Lymphocytes % (Manual) 8 % (20-45) L Monocytes % (Manual) 5 % (1-10) Eosinophils % (Manual) 0 % (0-3) Basophils % (Manual) 0 % (0-2) Band Neutrophils 0 % (0-8) Platelet Estimate Decreased L Platelet Morphology Normal Red Blood Cell Morphology Normal Erythrocyte Sedimentation Rate Pending Sodium Level 147 MMOL/L (136-145) H Potassium Level 3.5 MMOL/L (3.5-5.1) Chloride Level 111 MMOL/L (98-107) H Carbon Dioxide Level 24 MMOL/L (21-32) Anion Gap 13 mmol/L (5-15) Blood Urea Nitrogen 18 mg/dL (7-18) Creatinine 0.7 MG/DL (0.55-1.30) Estimat Glomerular Filtration Rate > 60 mL/min (>60) Glucose Level 88 MG/DL (74-106) Calcium Level 8.3 MG/DL (8.5-10.1) L Phosphorus Level 2.0 MG/DL (2.5-4.9) L Magnesium Level 2.0 MG/DL (1.8-2.4) Total Bilirubin 0.5 MG/DL (0.2-1.0) Aspartate Amino Transf (AST/SGOT) 31 U/L (15-37) Alanine Aminotransferase (ALT/SGPT) 23 U/L (12-78) Alkaline Phosphatase 72 U/L (46-116) C-Reactive Protein, Quantitative 23.2 mg/dL (0.00-0.90) H Total Protein 5.5 G/DL (6.4-8.2) L Albumin 2.5 G/DL (3.4-5.0) L Globulin 3.0 g/dL Albumin/Globulin Ratio 0.8 (1.0-2.7) L Random Vancomycin Level 0.5 ug/mL Current Medications Medications (Trade) Dose Ordered Sig/Jodee Route PRN Reason Start Time Stop Time Status Last Admin Dose Admin Acetaminophen (Tylenol) 650 mg Q4H PRN ORAL fever 02/03/20 13:00 03/04/20 12:59 Albuterol/ Ipratropium (Albuterol/ Ipratropium) 3 ml Q4H PRN HHN Shortness of Breath 02/03/20 13:30 02/08/20 13:29 Aspirin (ASA) 81 mg DAILY ORAL 02/04/20 09:00 03/20/20 08:59 02/05/20 09:19 Atorvastatin Calcium (Lipitor) 20 mg BEDTIME ORAL 02/03/20 21:00 05/03/20 20:59 02/04/20 21:09 Cefepime HCl 1 gm/ Dextrose 55 ml @ 110 mls/hr DAILY IV 02/04/20 09:00 02/11/20 08:59 02/05/20 09:19 Docusate Sodium (Colace) 100 mg THREE TIMES A DAY ORAL 02/03/20 13:00 03/04/20 12:59 02/05/20 09:19 Donepezil HCl (Aricept) 20 mg DAILY ORAL 02/04/20 09:00 03/05/20 08:59 02/05/20 09:19 Heparin Sodium (Porcine) (Heparin 5000 units/ml) 5,000 units EVERY 12 HOURS SUBQ 02/03/20 21:00 03/19/20 20:59 02/04/20 08:48 Hydralazine HCl (Apresoline) 25 mg Q4H PRN ORAL For blood pressure over 160 sy 02/03/20 11:00 05/03/20 10:59 Memantine (Namenda) 10 mg DAILY ORAL 02/05/20 09:00 03/06/20 08:59 02/05/20 09:19 Nitroglycerin (Ntg) 0.4 mg Q5M PRN SL Prn Chest Pain 02/03/20 13:30 03/04/20 13:29 Ondansetron HCl (Zofran) 4 mg Q6H PRN IVP Nausea & Vomiting 02/03/20 13:30 03/04/20 13:29 Pantoprazole (Protonix) 40 mg EVERY 12 HOURS ORAL 02/03/20 11:00 03/04/20 10:59 02/05/20 09:19 Phosphorus (Phospha 250 Neutral) 250 mg THREE TIMES A DAY ORAL 02/04/20 18:00 03/05/20 17:59 02/05/20 09:19 Polyethylene Glycol (Miralax) 17 gm DAILYPRN PRN ORAL Constipation 02/03/20 13:30 03/04/20 13:29 Potassium Phosphate 20 mm/ Sodium Chloride 281.6667 ml @ 46.94 mls/hr ONCE ONCE IV 02/05/20 11:00 02/05/20 17:00 Promethazine HCl/ Codeine (Phenergan with Codeine) 5 ml Q4H PRN ORAL For Cough 02/03/20 13:30 03/04/20 13:29 Temazepam (Restoril) 15 mg HSPRN PRN ORAL Insomnia 02/03/20 21:00 02/10/20 20:59 Vancomycin HCl (Vanco rx to dose) 1 ea DAILY PRN MISC Per rx protocol 02/03/20 12:45 03/04/20 12:44 Vancomycin HCl 750 mg/Dextrose 275 ml @ 183.333 mls/hr DAILY IVPB 02/05/20 11:00 02/10/20 10:59 Benson Alexander MD February 05, 2020 09:48
[2020-02-05] MEDS ORDERED: Potassium Phosphate 20 MM in NS 275 ML IV ONE (11:00)
[2020-02-05] MEDS: Vancomycin 750mg/D5W 275ml IVPB SCH ×2 (11:18)
[2020-02-05 12:00] VITALS: BP 116/66
--- NOTE | 2020-02-05 13:03 | Nephrology Progress Note ---
Assessment/Plan Problem List: (1) Dehydration (2) Suspected 2019-nCoV infection (3) Urinary tract infection (4) Pacemaker Assessment Renal failure most likely dehydration, may have underlying chronic kidney disease Suspected 2019-nCoV infection Febrile illness, acute Dementia Pneumonia Urinary tract infection Status post pacemaker Plan Slow IV hydration, watch for CHF symptoms Monitor renal parameters Urine studies Antibiotics per ID Avoid nephrotoxic's N.p.o. until speech therapy evaluation Per orders Subjective ROS Limited/Unobtainable: No Constitutional: Reports: malaise Objective Objective Last 24 Hour Vital Signs Date Time Temp Pulse Resp B/P (MAP) Pulse Ox O2 Delivery O2 Flow Rate FiO2 02/05/20 12:00 97.2 83 19 116/66 (83) 99 02/05/20 12:00 76 02/05/20 09:00 Simple Mask 15.0 02/05/20 08:00 97.2 72 18 137/70 (92) 100 02/05/20 08:00 75 02/05/20 04:00 97.8 80 20 146/66 (92) 100 02/05/20 04:00 79 02/05/20 00:00 83 02/05/20 00:00 97.4 76 20 139/65 (89) 96 02/04/20 21:00 Simple Mask 15.0 02/04/20 20:00 76 02/04/20 20:00 97.2 80 20 142/68 (92) 100 02/04/20 16:00 97.8 79 20 132/63 (86) 96 02/04/20 16:00 80 Intake and Output 02/04/20 02/05/20 19:00 07:00 Intake Total 340 ml Output Total 1200 ml 400 ml Balance -860 ml -400 ml Intake Oral 340 ml Output Urine Total 1200 ml 400 ml Laboratory Tests 02/05/20 04:00: White Blood Count 11.2H, Red Blood Count 3.66L, Hemoglobin 11.8L, Hematocrit 33.9L, Mean Corpuscular Volume 92, Mean Corpuscular Hemoglobin 32.3H, Mean Corpuscular Hemoglobin Concent 34.9, Red Cell Distribution Width 11.5L, Platelet Count 123L, Mean Platelet Volume 6.7, Neutrophils (%) (Auto) , Lymphocytes (%) (Auto) , Monocytes (%) (Auto) , Eosinophils (%) (Auto) , Basophils (%) (Auto) , Differential Total Cells Counted 100, Neutrophils % ( Manual) 87H, Lymphocytes % (Manual) 8L, Monocytes % (Manual) 5, Eosinophils % ( Manual) 0, Basophils % (Manual) 0, Band Neutrophils 0, Platelet Estimate DecreasedL, Platelet Morphology Normal, Red Blood Cell Morphology Normal, Sodium Level 147H, Potassium Level 3.5, Chloride Level 111H, Carbon Dioxide Level 24, Anion Gap 13, Blood Urea Nitrogen 18, Creatinine 0.7, Estimat Glomerular Filtration Rate > 60, Glucose Level 88, Calcium Level 8.3L, Phosphorus Level 2.0L, Magnesium Level 2.0, Total Bilirubin 0.5, Aspartate Amino Transf (AST/SGOT) 31, Alanine Aminotransferase (ALT/SGPT) 23, Alkaline Phosphatase 72, C-Reactive Protein, Quantitative 23.2H, Total Protein 5.5L, Albumin 2.5L, Globulin 3.0, Albumin/Globulin Ratio 0.8L, Random Vancomycin Level 0.5 02/05/20 10:20: Erythrocyte Sedimentation Rate 82H Height (Feet): 5 Height (Inches): 6.00 Weight (Pounds): 115 General Appearance: no apparent distress Cardiovascular: normal rate Respiratory/Chest: decreased breath sounds Abdomen: soft, distended Objective No change Cooper Chamorro MD February 05, 2020 13:03
--- NOTE | 2020-02-05 13:51 | Internal Med Progress Note ---
Subjective Physician Name Roby Grace Attending Physician Roby Grace MD Current Medications Medications (Trade) Dose Ordered Sig/Jodee Route PRN Reason Start Time Stop Time Status Last Admin Dose Admin Acetaminophen (Tylenol) 650 mg Q4H PRN ORAL fever 02/03/20 13:00 03/04/20 12:59 Albuterol/ Ipratropium (Albuterol/ Ipratropium) 3 ml Q4H PRN HHN Shortness of Breath 02/03/20 13:30 02/08/20 13:29 Aspirin (ASA) 81 mg DAILY ORAL 02/04/20 09:00 03/20/20 08:59 02/05/20 09:19 Atorvastatin Calcium (Lipitor) 20 mg BEDTIME ORAL 02/03/20 21:00 05/03/20 20:59 02/04/20 21:09 Cefepime HCl 1 gm/ Dextrose 55 ml @ 110 mls/hr DAILY IV 02/04/20 09:00 02/11/20 08:59 02/05/20 09:19 Docusate Sodium (Colace) 100 mg THREE TIMES A DAY ORAL 02/03/20 13:00 03/04/20 12:59 02/05/20 12:31 Donepezil HCl (Aricept) 20 mg DAILY ORAL 02/04/20 09:00 03/05/20 08:59 02/05/20 09:19 Heparin Sodium (Porcine) (Heparin 5000 units/ml) 5,000 units EVERY 12 HOURS SUBQ 02/03/20 21:00 03/19/20 20:59 02/04/20 08:48 Hydralazine HCl (Apresoline) 25 mg Q4H PRN ORAL For blood pressure over 160 sy 02/03/20 11:00 05/03/20 10:59 Memantine (Namenda) 10 mg DAILY ORAL 02/05/20 09:00 03/06/20 08:59 02/05/20 09:19 Nitroglycerin (Ntg) 0.4 mg Q5M PRN SL Prn Chest Pain 02/03/20 13:30 03/04/20 13:29 Ondansetron HCl (Zofran) 4 mg Q6H PRN IVP Nausea & Vomiting 02/03/20 13:30 03/04/20 13:29 Pantoprazole (Protonix) 40 mg EVERY 12 HOURS ORAL 02/03/20 11:00 03/04/20 10:59 02/05/20 09:19 Phosphorus (Phospha 250 Neutral) 250 mg THREE TIMES A DAY ORAL 02/04/20 18:00 03/05/20 17:59 02/05/20 12:32 Polyethylene Glycol (Miralax) 17 gm DAILYPRN PRN ORAL Constipation 02/03/20 13:30 03/04/20 13:29 Potassium Phosphate 20 mm/ Sodium Chloride 281.6667 ml @ 46.94 mls/hr ONCE ONCE IV 02/05/20 11:00 02/05/20 17:00 02/05/20 10:47 Promethazine HCl/ Codeine (Phenergan with Codeine) 5 ml Q4H PRN ORAL For Cough 02/03/20 13:30 03/04/20 13:29 Temazepam (Restoril) 15 mg HSPRN PRN ORAL Insomnia 02/03/20 21:00 02/10/20 20:59 Vancomycin HCl (Vanco rx to dose) 1 ea DAILY PRN MISC Per rx protocol 02/03/20 12:45 03/04/20 12:44 Vancomycin HCl 750 mg/Dextrose 275 ml @ 183.333 mls/hr DAILY IVPB 02/05/20 11:00 02/10/20 10:59 02/05/20 11:18 Allergies: Coded Allergies: No Known Allergies (Unverified , 02/03/20) Subjective Awake, alert, responsive, + shortness of breath on VM O2, denies any cough, denies any fever or chills, PLT 123. Objective Last Vital Signs Date Time Temp Pulse Resp B/P (MAP) Pulse Ox O2 Delivery O2 Flow Rate FiO2 02/05/20 12:00 97.2 83 19 116/66 (83) 99 02/05/20 09:00 Simple Mask 15.0 02/04/20 03:14 100 Laboratory Tests Test 02/05/20 04:00 02/05/20 10:20 White Blood Count 11.2 K/UL (4.8-10.8) H Red Blood Count 3.66 M/UL (4.70-6.10) L Hemoglobin 11.8 G/DL (14.2-18.0) L Hematocrit 33.9 % (42.0-52.0) L Mean Corpuscular Volume 92 FL (80-99) Mean Corpuscular Hemoglobin 32.3 PG (27.0-31.0) H Mean Corpuscular Hemoglobin Concent 34.9 G/DL (32.0-36.0) Red Cell Distribution Width 11.5 % (11.6-14.8) L Platelet Count 123 K/UL (150-450) L Mean Platelet Volume 6.7 FL (6.5-10.1) Neutrophils (%) (Auto) % (45.0-75.0) Lymphocytes (%) (Auto) % (20.0-45.0) Monocytes (%) (Auto) % (1.0-10.0) Eosinophils (%) (Auto) % (0.0-3.0) Basophils (%) (Auto) % (0.0-2.0) Differential Total Cells Counted 100 Neutrophils % (Manual) 87 % (45-75) H Lymphocytes % (Manual) 8 % (20-45) L Monocytes % (Manual) 5 % (1-10) Eosinophils % (Manual) 0 % (0-3) Basophils % (Manual) 0 % (0-2) Band Neutrophils 0 % (0-8) Platelet Estimate Decreased L Platelet Morphology Normal Red Blood Cell Morphology Normal Sodium Level 147 MMOL/L (136-145) H Potassium Level 3.5 MMOL/L (3.5-5.1) Chloride Level 111 MMOL/L (98-107) H Carbon Dioxide Level 24 MMOL/L (21-32) Anion Gap 13 mmol/L (5-15) Blood Urea Nitrogen 18 mg/dL (7-18) Creatinine 0.7 MG/DL (0.55-1.30) Estimat Glomerular Filtration Rate > 60 mL/min (>60) Glucose Level 88 MG/DL (74-106) Calcium Level 8.3 MG/DL (8.5-10.1) L Phosphorus Level 2.0 MG/DL (2.5-4.9) L Magnesium Level 2.0 MG/DL (1.8-2.4) Total Bilirubin 0.5 MG/DL (0.2-1.0) Aspartate Amino Transf (AST/SGOT) 31 U/L (15-37) Alanine Aminotransferase (ALT/SGPT) 23 U/L (12-78) Alkaline Phosphatase 72 U/L (46-116) C-Reactive Protein, Quantitative 23.2 mg/dL (0.00-0.90) H Total Protein 5.5 G/DL (6.4-8.2) L Albumin 2.5 G/DL (3.4-5.0) L Globulin 3.0 g/dL Albumin/Globulin Ratio 0.8 (1.0-2.7) L Random Vancomycin Level 0.5 ug/mL Erythrocyte Sedimentation Rate 82 MM/HR (0-20) H Microbiology Date/Time Source Procedure Growth Status 02/03/20 04:15 Blood Blood Culture - Preliminary NO GROWTH AFTER 24 HOURS Resulted 02/03/20 04:00 Blood Blood Culture - Preliminary NO GROWTH AFTER 24 HOURS Resulted 02/03/20 04:00 Nasal Nares MRSA Culture - Final NO METHICILLIN RESISTANT STAPH AUREUS... Complete 02/03/20 04:32 Urine,Clean Catch Urine Culture - Final Escherichia Coli Complete 02/03/20 04:00 Rectum VRE Culture - Final NO VANCOMYCIN RESISTANT ENTEROCOCCUS ... Complete 02/03/20 04:00 Rectum - Final NO CARBAPENEM-RESISTANT ENTEROBACTERI... Complete Intake and Output 02/04/20 02/05/20 19:00 07:00 Intake Total 340 ml Output Total 1200 ml 400 ml Balance -860 ml -400 ml Intake Oral 340 ml Output Urine Total 1200 ml 400 ml Objective General: No acute distress, awake and alert HEENT: NCAT, sclera anicteric, PERRL, EOMI. Neck: Supple, no significant jugular venous distention, Lungs: Fair inspiratory effort, decreased air at the bases, no Wheeze or Rales. Heart: Regular rate and rhythm, normal S1/S2, no murmurs, + PPM. Abdomen: soft, nontender, nondistended. Normoactive bowel sounds. / Rectal: Refused and deferred. Extremities: No Cyanosis , clubbing or edema. Neuro: A&O x 3, Able to move all extremities Skin: warm, no rash, Assessment/Plan Assessment/Plan Severe Sepsis Acute hypoxic respiratory failure- on simple mask 15L- high suspicion for COVID19 Pneumonia Acute E. Coli UTI Thrombocytopenia BRIANA, improving Lactic acidosis, SP hx of recent UTI (~2 weeks [employer]) Alzheimer's Dementia s/p PPM CAD s/p CABG dysphagia s/p GT (now removed) [place] resident ([facility]) - no reported COVID patients in this facility as of 02/03/20 Plan: -Continue empiric IV Vancomycin and Cefepime #2 -02/02 SP Flagyl x1 -CODE STATUS: DNR/DNI -Follow-up with cultures and laboratories in a.m. -Passed the swallow study will start on diet. -DVT prophylaxis: Heparin subcu. -Follow-up with COVID-19 culture. -2D Echo once is clear from COVID-19 infection Roby Grace MD February 05, 2020 13:51
[2020-02-05 16:00] VITALS: BP 135/60
--- NOTE | 2020-02-05 16:38 | Cardiology Progress Note ---
Assessment/Plan Problem List: (1) Severe protein-calorie malnutrition (2) Suspected 2019-nCoV infection (3) Urinary tract infection (4) Pacemaker (5) Pneumonia Status Narrative Cardiac status stable. No angina or chf symptoms. CAD, remote hx of CABG UTI Pneumonia - Pt being ruled out for COVID - results pending. Assessment/Plan Plan for ECHO and pacemaker evaluation once pt out of COVID isolation Continue asa, ? add statin, b betty for CAD. Management of uti and pneumonia per primary team Subjective ROS Limited/Unobtainable: Yes Subjective Cardiology for Pt alert, no respiratory distress Objective Last 24 Hour Vital Signs Date Time Temp Pulse Resp B/P (MAP) Pulse Ox O2 Delivery O2 Flow Rate FiO2 02/05/20 12:00 97.2 83 19 116/66 (83) 99 02/05/20 12:00 76 02/05/20 09:00 Simple Mask 15.0 02/05/20 08:00 97.2 72 18 137/70 (92) 100 02/05/20 08:00 75 02/05/20 04:00 97.8 80 20 146/66 (92) 100 02/05/20 04:00 79 02/05/20 00:00 83 02/05/20 00:00 97.4 76 20 139/65 (89) 96 02/04/20 21:00 Simple Mask 15.0 02/04/20 20:00 76 02/04/20 20:00 97.2 80 20 142/68 (92) 100 General Appearance: WD/WN, no apparent distress, alert - exam deferred- COVID isolation Intake and Output 02/04/20 02/05/20 19:00 07:00 Intake Total 340 ml Output Total 1200 ml 400 ml Balance -860 ml -400 ml Intake Oral 340 ml Output Urine Total 1200 ml 400 ml Laboratory Tests Test 02/05/20 04:00 02/05/20 10:20 White Blood Count 11.2 K/UL (4.8-10.8) H Red Blood Count 3.66 M/UL (4.70-6.10) L Hemoglobin 11.8 G/DL (14.2-18.0) L Hematocrit 33.9 % (42.0-52.0) L Mean Corpuscular Volume 92 FL (80-99) Mean Corpuscular Hemoglobin 32.3 PG (27.0-31.0) H Mean Corpuscular Hemoglobin Concent 34.9 G/DL (32.0-36.0) Red Cell Distribution Width 11.5 % (11.6-14.8) L Platelet Count 123 K/UL (150-450) L Mean Platelet Volume 6.7 FL (6.5-10.1) Neutrophils (%) (Auto) % (45.0-75.0) Lymphocytes (%) (Auto) % (20.0-45.0) Monocytes (%) (Auto) % (1.0-10.0) Eosinophils (%) (Auto) % (0.0-3.0) Basophils (%) (Auto) % (0.0-2.0) Differential Total Cells Counted 100 Neutrophils % (Manual) 87 % (45-75) H Lymphocytes % (Manual) 8 % (20-45) L Monocytes % (Manual) 5 % (1-10) Eosinophils % (Manual) 0 % (0-3) Basophils % (Manual) 0 % (0-2) Band Neutrophils 0 % (0-8) Platelet Estimate Decreased L Platelet Morphology Normal Red Blood Cell Morphology Normal Sodium Level 147 MMOL/L (136-145) H Potassium Level 3.5 MMOL/L (3.5-5.1) Chloride Level 111 MMOL/L (98-107) H Carbon Dioxide Level 24 MMOL/L (21-32) Anion Gap 13 mmol/L (5-15) Blood Urea Nitrogen 18 mg/dL (7-18) Creatinine 0.7 MG/DL (0.55-1.30) Estimat Glomerular Filtration Rate > 60 mL/min (>60) Glucose Level 88 MG/DL (74-106) Calcium Level 8.3 MG/DL (8.5-10.1) L Phosphorus Level 2.0 MG/DL (2.5-4.9) L Magnesium Level 2.0 MG/DL (1.8-2.4) Total Bilirubin 0.5 MG/DL (0.2-1.0) Aspartate Amino Transf (AST/SGOT) 31 U/L (15-37) Alanine Aminotransferase (ALT/SGPT) 23 U/L (12-78) Alkaline Phosphatase 72 U/L (46-116) C-Reactive Protein, Quantitative 23.2 mg/dL (0.00-0.90) H Total Protein 5.5 G/DL (6.4-8.2) L Albumin 2.5 G/DL (3.4-5.0) L Globulin 3.0 g/dL Albumin/Globulin Ratio 0.8 (1.0-2.7) L Random Vancomycin Level 0.5 ug/mL Erythrocyte Sedimentation Rate 82 MM/HR (0-20) H Microbiology Date/Time Source Procedure Growth Status 02/03/20 04:15 Blood Blood Culture - Preliminary NO GROWTH AFTER 24 HOURS Resulted 02/03/20 04:00 Blood Blood Culture - Preliminary NO GROWTH AFTER 24 HOURS Resulted 02/03/20 04:00 Nasal Nares MRSA Culture - Final NO METHICILLIN RESISTANT STAPH AUREUS... Complete 02/03/20 04:32 Urine,Clean Catch Urine Culture - Final Escherichia Coli Complete 02/03/20 04:00 Rectum VRE Culture - Final NO VANCOMYCIN RESISTANT ENTEROCOCCUS ... Complete 02/03/20 04:00 Rectum - Final NO CARBAPENEM-RESISTANT ENTEROBACTERI... Complete Wilda Pfeiffer MD February 05, 2020 16:38
--- NOTE | 2020-02-05 19:14 | NUR ---
HAND-OFF: Report given to Laurie Gallegos. Patient stable. Plan of care endorsed.
--- NOTE | 2020-02-05 19:49 | NUR ---
NURSE NOTES: Received report from LUIS Valles. Patient is awake, alert and oriented x 1. On simple mask @ 15Lpm with no shortness or difficulty of breathing reported, saturating 96%. On a regular diet, nectar pureed, and supplement of Glucerna three times a day. equipment monitor phototypesetting is in placed, shows A-paced with no chest pain at this time. Patient is fall and aspiration precaution. IV site is on left forearm g-22 and right forearm g-18 saline lock that is patent and intact. Safety measures are in placed, bed in lowest and lock position. Will continue plan of care.
[2020-02-05 20:00] VITALS: BP 138/76
[2020-02-05] MEDS: Atorvastatin 20mg tab ORAL SCH (21:22)
[2020-02-06] VITALS: BP 146/70
[2020-02-06 04:00] VITALS: BP 143/65
--- NOTE | 2020-02-06 07:30 | NUR ---
HAND-OFF: Report given to LUIS Valles. Patient is in stable condition, no SOB noted at this time. Plan of care endorsed.
--- NOTE | 2020-02-06 07:42 | NUR ---
NURSE NOTES: Report received from Laurie SMITH. Patient stable AOx1. Resting comfortably in bed. Restraints replaced and patient has good ROM, sensation and circulation. RR even and unlabored on simple mask 10L. Weaned down from 15L last night. No s/sx of pain or distress. Side rails upx2, call light within reach, bed low and locked. Will continue to monitor.
[2020-02-06 08:00] VITALS: BP 118/51
--- NOTE | 2020-02-06 08:41 | Pulmonology Progress Note ---
Subjective ROS Limited/Unobtainable: Yes Allergies: Coded Allergies: No Known Allergies (Unverified , 02/03/20) Subjective no fevers, labs pending for this am on simple mask high O2 flow in isolation for suspected CoVID 19 Objective Last 24 Hour Vital Signs Date Time Temp Pulse Resp B/P (MAP) Pulse Ox O2 Delivery O2 Flow Rate FiO2 02/06/20 04:00 97.7 70 20 143/65 (91) 99 02/06/20 04:00 70 02/06/20 00:00 98.0 72 20 146/70 (95) 99 02/06/20 00:00 69 02/05/20 21:00 Simple Mask 12.0 02/05/20 20:00 75 02/05/20 20:00 98.2 70 20 138/76 (96) 99 02/05/20 16:00 72 02/05/20 16:00 98.0 75 19 135/60 (85) 95 02/05/20 12:00 97.2 83 19 116/66 (83) 99 02/05/20 12:00 76 02/05/20 09:00 Simple Mask 15.0 Intake and Output 02/05/20 02/06/20 19:00 07:00 Intake Total 1119.6667 ml Output Total 850 ml 650 ml Balance 269.6667 ml -650 ml Intake Oral 508 ml IV Total 611.6667 ml Output Urine Total 850 ml 650 ml Objective General Appearance: mild acute distress HEENT: normocephalic, atraumatic, anicteric Respiratory: decreased breath sounds, rhonchi - right, other Cardiovascular: normal rate Abdomen: soft, non tender, non distended Extremities: no edema Neurologic: abnormal gait, alert Musculoskeletal: atrophy General Appearance: other - mild rep distress HEENT: normocephalic, atraumatic, anicteric Respiratory: decreased breath sounds, rhonchi - left, rhonchi - right, other Cardiovascular: normal rate Abdomen: soft, non tender, non distended Extremities: no edema Neurologic: abnormal gait, other - less resposnive than yesterday Musculoskeletal: atrophy Laboratory Tests 02/05/20 10:20: Erythrocyte Sedimentation Rate 82H Current Medications Medications (Trade) Dose Ordered Sig/Jodee Route PRN Reason Start Time Stop Time Status Last Admin Dose Admin Acetaminophen (Tylenol) 650 mg Q4H PRN ORAL fever 5/14/20 13:00 03/04/20 12:59 Albuterol/ Ipratropium (Albuterol/ Ipratropium) 3 ml Q4H PRN HHN Shortness of Breath 02/03/20 13:30 02/08/20 13:29 Aspirin (ASA) 81 mg DAILY ORAL 02/04/20 09:00 03/20/20 08:59 02/05/20 09:19 Atorvastatin Calcium (Lipitor) 20 mg BEDTIME ORAL 02/03/20 21:00 05/03/20 20:59 02/05/20 21:22 Cefepime HCl 1 gm/ Dextrose 55 ml @ 110 mls/hr DAILY IV 02/04/20 09:00 02/11/20 08:59 02/05/20 09:19 Docusate Sodium (Colace) 100 mg THREE TIMES A DAY ORAL 02/03/20 13:00 03/04/20 12:59 02/05/20 17:54 Donepezil HCl (Aricept) 20 mg DAILY ORAL 02/04/20 09:00 03/05/20 08:59 02/05/20 09:19 Heparin Sodium (Porcine) (Heparin 5000 units/ml) 5,000 units EVERY 12 HOURS SUBQ 02/03/20 21:00 03/19/20 20:59 02/04/20 08:48 Hydralazine HCl (Apresoline) 25 mg Q4H PRN ORAL For blood pressure over 160 sy 02/03/20 11:00 05/03/20 10:59 Memantine (Namenda) 10 mg DAILY ORAL 02/05/20 09:00 03/06/20 08:59 02/05/20 09:19 Nitroglycerin (Ntg) 0.4 mg Q5M PRN SL Prn Chest Pain 02/03/20 13:30 03/04/20 13:29 Ondansetron HCl (Zofran) 4 mg Q6H PRN IVP Nausea & Vomiting 02/03/20 13:30 03/04/20 13:29 Pantoprazole (Protonix) 40 mg EVERY 12 HOURS ORAL 02/03/20 11:00 03/04/20 10:59 02/05/20 21:22 Phosphorus (Phospha 250 Neutral) 250 mg THREE TIMES A DAY ORAL 02/04/20 18:00 03/05/20 17:59 02/05/20 17:54 Polyethylene Glycol (Miralax) 17 gm DAILYPRN PRN ORAL Constipation 02/03/20 13:30 03/04/20 13:29 Promethazine HCl/ Codeine (Phenergan with Codeine) 5 ml Q4H PRN ORAL For Cough 02/03/20 13:30 03/04/20 13:29 Temazepam (Restoril) 15 mg HSPRN PRN ORAL Insomnia 02/03/20 21:00 02/10/20 20:59 Vancomycin HCl (Vanco rx to dose) 1 ea DAILY PRN MISC Per rx protocol 02/03/20 12:45 03/04/20 12:44 Vancomycin HCl 750 mg/Dextrose 275 ml @ 183.333 mls/hr DAILY IVPB 02/05/20 11:00 02/10/20 10:59 02/05/20 11:18 Assessment/Plan Assessment/Plan ASSESSMENT Severe sepsis Suspected COVID-19 infection Acute hypoxemic RF requiring NRM PNA UTI E coli BRIANA possibly on underlying CKD Dehydration CAD, s/p CABG pacemaker severe protein calorie malnutrition anemia Alzheimer dementia aspiration risk e/lyte imbalance / K, P PLAN OF CARE tele isolation titrate O2 to keep sat above 92 pulmonary toilet / MDI Proventil added CXR now antitussive prn fevers resolved weaned from NRM to simple mask swallow eval aspiration precaution fup with imaging initial CXR R base infiltrate abx as per ID BCX 5.14 NGTD UCX 02/02 E coli SARS-CoV-2 02/02 by PCR pending gentle IV hydration monitor renal parameters lytes K and P repalced yesterday DVT GI prophylaxis Continue ASA and statin protein supplement as per RD recs monitor H&H with goal to keep Hgb above 7, anemia w/up noted DNR/DNI status case discussed and evaluated by supervising physician Fabiola Bridges NP February 06, 2020 08:41
[2020-02-06 08:52] LABS: HEMOGLOBIN 13.2 G/DL (14.2-18.0); MEAN CORPUSCULAR VOLUME 92 FL (80-99); PLATELET COUNT 162 K/UL (150-450); RED BLOOD COUNT 4.14 M/UL (4.70-6.10); RED CELL DISTRIBUTION WIDTH 11.5 % (11.6-14.8); WHITE BLOOD COUNT 16.4 K/UL (4.8-10.8)
[2020-02-06] MEDS ORDERED: Albuterol 90mcg Inhaler 8gm INH PRN (09:00)
[2020-02-06] MEDS ORDERED: Albuterol ud Inhalation HHN PRN (09:10)
[2020-02-06 09:29] LABS: ANION GAP 12 mmol/L (5-15); BLOOD UREA NITROGEN 15 mg/dL (7-18); CALCIUM 8.4 MG/DL (8.5-10.1); CARBON DIOXIDE 27 MMOL/L (21-32); CHLORIDE 108 MMOL/L (98-107); CREATININE 0.8 MG/DL (0.55-1.30); PHOSPHORUS 3.3 MG/DL (2.5-4.9); POTASSIUM 3.1 MMOL/L (3.5-5.1); SODIUM 147 MMOL/L (136-145)
[2020-02-06] MEDS: Vancomycin 750mg/D5W 275ml IVPB SCH ×2 (09:34)
[2020-02-06] MEDS: Donepezil 10mg tab ORAL SCH (09:34)
[2020-02-06] MEDS: Aspirin Baby 81mg ORAL SCH (09:34)
[2020-02-06] MEDS: Memantine 10mg tab ORAL SCH (09:34)
[2020-02-06] MEDS: Cefepime HCl 1 GM in D5W 55 ML IV SCH (09:34)
[2020-02-06] MEDS: Phospha 250 Neutral tab ORAL SCH ×3 (09:35→17:09)
[2020-02-06] MEDS: Docusate 100mg cap ORAL SCH ×2 (09:35→13:22)
[2020-02-06] MEDS: Heparin 5000 units/ml inj SUBQ SCH ×2 (09:36→21:34)
--- NOTE | 2020-02-06 10:34 | NUR ---
NURSE NOTES: On assessment patient found to be lethargic and arousable with shaking. WBC trending up from 11.2 to 16.4. Spoke with Dr. Alexander and received orders. RT at bedside performing deep suctioning and sputum sample collected.
--- NOTE | 2020-02-06 10:50 | Nephrology Progress Note ---
Assessment/Plan Problem List: (1) Dehydration (2) Suspected 2019-nCoV infection (3) Urinary tract infection (4) Pacemaker Assessment Renal failure most likely dehydration, may have underlying chronic kidney disease Suspected 2019-nCoV infection Febrile illness, acute Dementia Pneumonia Urinary tract infection Status post pacemaker Plan IV potassium chloride 40 M EQ today Stable from renal standpoint of view Previously: Slow IV hydration, watch for CHF symptoms Monitor renal parameters Urine studies Antibiotics per ID Avoid nephrotoxic's Per orders Subjective ROS Limited/Unobtainable: No Constitutional: Reports: malaise, weakness Objective Objective Last 24 Hour Vital Signs Date Time Temp Pulse Resp B/P (MAP) Pulse Ox O2 Delivery O2 Flow Rate FiO2 02/06/20 09:00 Simple Mask 10.0 02/06/20 08:00 102 02/06/20 08:00 99.5 103 19 118/51 (73) 95 02/06/20 04:00 97.7 70 20 143/65 (91) 99 02/06/20 04:00 70 02/06/20 00:00 98.0 72 20 146/70 (95) 99 02/06/20 00:00 69 02/05/20 21:00 Simple Mask 12.0 02/05/20 20:00 75 02/05/20 20:00 98.2 70 20 138/76 (96) 99 02/05/20 16:00 72 02/05/20 16:00 98.0 75 19 135/60 (85) 95 02/05/20 12:00 97.2 83 19 116/66 (83) 99 02/05/20 12:00 76 Intake and Output 02/05/20 02/06/20 19:00 07:00 Intake Total 1119.6667 ml Output Total 850 ml 650 ml Balance 269.6667 ml -650 ml Intake Oral 508 ml IV Total 611.6667 ml Output Urine Total 850 ml 650 ml Laboratory Tests 02/06/20 06:50: White Blood Count 16.4H, Red Blood Count 4.14L, Hemoglobin 13.2L, Hematocrit 38.0L, Mean Corpuscular Volume 92, Mean Corpuscular Hemoglobin 31.8H, Mean Corpuscular Hemoglobin Concent 34.7, Red Cell Distribution Width 11.5L, Platelet Count 162, Mean Platelet Volume 6.9, Neutrophils (%) (Auto) , Lymphocytes (%) (Auto) , Monocytes (%) (Auto) , Eosinophils (%) (Auto) , Basophils (%) (Auto) , Differential Total Cells Counted 100, Neutrophils % ( Manual) 85H, Lymphocytes % (Manual) 12L, Monocytes % (Manual) 3, Eosinophils % ( Manual) 0, Basophils % (Manual) 0, Band Neutrophils 0, Platelet Estimate Adequate, Platelet Morphology Normal, Red Blood Cell Morphology Normal, Sodium Level 147H, Potassium Level 3.1L, Chloride Level 108H, Carbon Dioxide Level 27, Anion Gap 12, Blood Urea Nitrogen 15, Creatinine 0.8, Estimat Glomerular Filtration Rate > 60, Glucose Level 141H, Calcium Level 8.4L, Phosphorus Level 3.3 Height (Feet): 5 Height (Inches): 6.00 Weight (Pounds): 115 General Appearance: no apparent distress Cardiovascular: other - Variable Respiratory/Chest: decreased breath sounds Abdomen: soft Objective No change Cooper Chamorro MD February 06, 2020 10:50
--- NOTE | 2020-02-06 11:06 | Diagnostic Imaging Report ---
EXAM: XR Chest, 1 View CLINICAL HISTORY: Shortness of breath TECHNIQUE: Frontal view of the chest. COMPARISON: Chest x-ray dated 02/03/20 FINDINGS: Lungs: New/worsening patchy opacities in the right upper lung. No significant change in the right lower lung opacities or the subsegmental atelectasis versus infiltrate in the left lung base. Pleural space: Unremarkable. The costophrenic angles are sharp. No visible pneumothorax. Heart: Unremarkable. No cardiomegaly. Mediastinum: Unremarkable. Bones/joints: Degenerative changes throughout the visualized spine and shoulder joints. Status post median sternotomy. Vasculature: Atherosclerotic calcifications within the aortic arch. Tubes, lines and devices: Cardiac pacer in the left chest wall with the lead tips in the right atrium and right ventricle regions. IMPRESSION: 1. New/worsening patchy opacities in the right upper lung. 2. No significant change in the right lower lung opacities or the subsegmental atelectasis versus infiltrate in the left lung base.
[2020-02-06 12:00] VITALS: BP 119/67
--- NOTE | 2020-02-06 12:55 | Internal Med Progress Note ---
Subjective Physician Name Roby Grace Attending Physician Roby Grace MD Current Medications Medications (Trade) Dose Ordered Sig/Jodee Route PRN Reason Start Time Stop Time Status Last Admin Dose Admin Acetaminophen (Tylenol) 650 mg Q4H PRN ORAL fever 02/03/20 13:00 03/04/20 12:59 Albuterol Sulfate (Proventil) 2.5 mg Q4H PRN HHN Shortness of Breath 02/06/20 09:10 02/11/20 09:09 Aspirin (ASA) 81 mg DAILY ORAL 02/04/20 09:00 03/20/20 08:59 02/06/20 09:34 Atorvastatin Calcium (Lipitor) 20 mg BEDTIME ORAL 02/03/20 21:00 05/03/20 20:59 02/05/20 21:22 Docusate Sodium (Colace) 100 mg THREE TIMES A DAY ORAL 02/03/20 13:00 03/04/20 12:59 02/06/20 09:35 Donepezil HCl (Aricept) 20 mg DAILY ORAL 02/04/20 09:00 03/05/20 08:59 02/06/20 09:34 Heparin Sodium (Porcine) (Heparin 5000 units/ml) 5,000 units EVERY 12 HOURS SUBQ 02/03/20 21:00 03/19/20 20:59 02/06/20 09:36 Hydralazine HCl (Apresoline) 25 mg Q4H PRN ORAL For blood pressure over 160 sy 02/03/20 11:00 05/03/20 10:59 Memantine (Namenda) 10 mg DAILY ORAL 02/05/20 09:00 03/06/20 08:59 02/06/20 09:34 Nitroglycerin (Ntg) 0.4 mg Q5M PRN SL Prn Chest Pain 02/03/20 13:30 03/04/20 13:29 Ondansetron HCl (Zofran) 4 mg Q6H PRN IVP Nausea & Vomiting 02/03/20 13:30 03/04/20 13:29 Pantoprazole (Protonix) 40 mg EVERY 12 HOURS ORAL 02/03/20 11:00 03/04/20 10:59 02/06/20 09:35 Phosphorus (Phospha 250 Neutral) 250 mg THREE TIMES A DAY ORAL 02/04/20 18:00 03/05/20 17:59 02/06/20 09:35 Piperacillin Sod/ Tazobactam Sod 3.375 gm/Sodium Chloride 110 ml @ 27.5 mls/hr EVERY 8 HOURS IVPB 02/06/20 14:00 02/11/20 13:59 Polyethylene Glycol (Miralax) 17 gm DAILYPRN PRN ORAL Constipation 02/03/20 13:30 03/04/20 13:29 Potassium Chloride 100 ml @ 100 mls/hr Q1H IVPB 02/06/20 11:00 02/06/20 14:59 02/06/20 12:35 Promethazine HCl/ Codeine (Phenergan with Codeine) 5 ml Q4H PRN ORAL For Cough 02/03/20 13:30 03/04/20 13:29 Temazepam (Restoril) 15 mg HSPRN PRN ORAL Insomnia 02/03/20 21:00 02/10/20 20:59 Vancomycin HCl (Vanco rx to dose) 1 ea DAILY PRN MISC Per rx protocol 02/03/20 12:45 03/04/20 12:44 Vancomycin HCl 750 mg/Dextrose 275 ml @ 183.333 mls/hr DAILY IVPB 02/05/20 11:00 02/10/20 10:59 02/06/20 09:34 Allergies: Coded Allergies: No Known Allergies (Unverified , 02/03/20) Subjective altered, less responsive, + shortness of breath on VM O2 10 liter, denies any cough, in COVID 19 isolation, WBC: 16.4, K: 3.1. Objective Last Vital Signs Date Time Temp Pulse Resp B/P (MAP) Pulse Ox O2 Delivery O2 Flow Rate FiO2 02/06/20 09:00 Simple Mask 10.0 02/06/20 08:00 102 02/06/20 08:00 99.5 19 118/51 (73) 95 02/04/20 03:14 100 Laboratory Tests Test 02/06/20 06:50 White Blood Count 16.4 K/UL (4.8-10.8) H Red Blood Count 4.14 M/UL (4.70-6.10) L Hemoglobin 13.2 G/DL (14.2-18.0) L Hematocrit 38.0 % (42.0-52.0) L Mean Corpuscular Volume 92 FL (80-99) Mean Corpuscular Hemoglobin 31.8 PG (27.0-31.0) H Mean Corpuscular Hemoglobin Concent 34.7 G/DL (32.0-36.0) Red Cell Distribution Width 11.5 % (11.6-14.8) L Platelet Count 162 K/UL (150-450) Mean Platelet Volume 6.9 FL (6.5-10.1) Neutrophils (%) (Auto) % (45.0-75.0) Lymphocytes (%) (Auto) % (20.0-45.0) Monocytes (%) (Auto) % (1.0-10.0) Eosinophils (%) (Auto) % (0.0-3.0) Basophils (%) (Auto) % (0.0-2.0) Differential Total Cells Counted 100 Neutrophils % (Manual) 85 % (45-75) H Lymphocytes % (Manual) 12 % (20-45) L Monocytes % (Manual) 3 % (1-10) Eosinophils % (Manual) 0 % (0-3) Basophils % (Manual) 0 % (0-2) Band Neutrophils 0 % (0-8) Platelet Estimate Adequate Platelet Morphology Normal Red Blood Cell Morphology Normal Sodium Level 147 MMOL/L (136-145) H Potassium Level 3.1 MMOL/L (3.5-5.1) L Chloride Level 108 MMOL/L (98-107) H Carbon Dioxide Level 27 MMOL/L (21-32) Anion Gap 12 mmol/L (5-15) Blood Urea Nitrogen 15 mg/dL (7-18) Creatinine 0.8 MG/DL (0.55-1.30) Estimat Glomerular Filtration Rate > 60 mL/min (>60) Glucose Level 141 MG/DL (74-106) H Calcium Level 8.4 MG/DL (8.5-10.1) L Phosphorus Level 3.3 MG/DL (2.5-4.9) Microbiology Date/Time Source Procedure Growth Status 02/04/20 09:00 Nasopharynx Coronavirus COVID-19 PCR ([facility]) - Final Complete Intake and Output 02/05/20 02/06/20 19:00 07:00 Intake Total 1119.6667 ml Output Total 850 ml 650 ml Balance 269.6667 ml -650 ml Intake Oral 508 ml IV Total 611.6667 ml Output Urine Total 850 ml 650 ml Objective General: No acute distress, less responsive, On Venti Mask HEENT: NCAT, sclera anicteric, PERRL, EOMI. Neck: Supple, no significant jugular venous distention, Lungs: Fair inspiratory effort, decreased air at the bases, no Wheeze or Rales. Heart: Regular rate and rhythm, normal S1/S2, no murmurs, + PPM. Abdomen: soft, nontender, nondistended. Normoactive bowel sounds. / Rectal: Refused and deferred. Extremities: No Cyanosis , clubbing or edema. Neuro: A&O x 2, Able to move all extremities slowly. Skin: warm, no rash, Assessment/Plan Assessment/Plan Severe Sepsis Acute hypoxic respiratory failure- on simple mask 15L- high suspicion for COVID19 Pneumonia Acute E. Coli UTI Thrombocytopenia BRIANA, improving Lactic acidosis, SP hx of recent UTI (~2 weeks [employer]) Alzheimer's Dementia s/p PPM CAD s/p CABG dysphagia s/p GT (now removed) [place] resident ([facility]) - no reported COVID patients in this facility as of 02/03/20 Plan: -Abx: IV Vancomycin and Zosyn , DC Cefepime IV -CODE STATUS: DNR/DNI -Follow-up with cultures and laboratories. -Passed the swallow study will start on diet. -DVT prophylaxis: Heparin subcu. -1ST COVID-19 test negative -2D Echo once is clear from COVID-19 infection Roby Grace MD February 06, 2020 12:54
--- NOTE | 2020-02-06 14:00 | NUR ---
NURSE NOTES: Dr. Grace updated on patient condition (increased WBC, lethargic and aspirating with crushed meds in applesauce). Order received to insert NGT and stat KUB to follow for placement confirmation. Addendum: 02/06/20 at 1827 by HAROON COHEN RN Communicated patient's POLST with Dr. Grace at this time as well.
[2020-02-06] MEDS: Piperacillin/Tazobactam 3.375 GM in NS 110 ML IVPB SCH ×2 (14:15→21:27)
--- NOTE | 2020-02-06 14:15 | NUR ---
NURSE NOTES: NGT measured and placed at 60cm. Confirmed placement by asucultation. STAT KUB ordered.
--- NOTE | 2020-02-06 15:23 | Diagnostic Imaging Report ---
EXAM: XR Abdomen, 1 view CLINICAL HISTORY: NGT TECHNIQUE: Frontal view of the abdomen. COMPARISON: No relevant prior studies available. FINDINGS: Lower thorax: Cardiac pacer leads in the right atrium and right ventricle regions. Minimal subsegmental atelectasis at the left lung base. Intraperitoneal space: No free air. Gastrointestinal tract: Unremarkable bowel gas pattern. No abnormal distention of large or small bowel loops. No luminal air fluid levels. No evidence of pneumatosis intestinalis. Bones/joints: Degenerative changes throughout the visualized spine. Status post median sternotomy. Tubes, lines and devices: Nasogastric tube tip in expected location of the stomach. Telemetry leads overlie the upper abdomen. IMPRESSION: Nasogastric tube tip in expected location of the stomach.
[2020-02-06 16:00] VITALS: BP 120/73
--- NOTE | 2020-02-06 16:48 | Cardiology Progress Note ---
Assessment/Plan Problem List: (1) Severe protein-calorie malnutrition (2) Suspected 2019-nCoV infection (3) Urinary tract infection (4) Pacemaker (5) Pneumonia Status: stable, unchanged Status Narrative Cardiac status stable. No angina or chf symptoms. CAD, remote hx of CABG s/p pacemaker , sick sinus syndrome - Short runs of tachycardia, appears to be pacemaker -mediated tach UTI - e coli Pneumonia - Pt being ruled out for COVID - first test negative. Repeat test pending. Assessment/Plan Plan for ECHO once pt out of COVID isolation pacemaker evaluation once pt out of COVID isolation. For now, can try calcium channel betty if sustained tach. No b betty due to bronchospasm risk Continue asa, ? add statin, b betty for CAD. Management of uti and pneumonia per primary team Subjective ROS Limited/Unobtainable: Yes Subjective Cardiology for Pt alert, no respiratory distress Objective Last 24 Hour Vital Signs Date Time Temp Pulse Resp B/P (MAP) Pulse Ox O2 Delivery O2 Flow Rate FiO2 02/06/20 12:00 89 02/06/20 09:00 Simple Mask 10.0 02/06/20 08:00 102 02/06/20 08:00 99.5 103 19 118/51 (73) 95 02/06/20 04:00 97.7 70 20 143/65 (91) 99 02/06/20 04:00 70 02/06/20 00:00 98.0 72 20 146/70 (95) 99 02/06/20 00:00 69 02/05/20 21:00 Simple Mask 12.0 02/05/20 20:00 75 02/05/20 20:00 98.2 70 20 138/76 (96) 99 General Appearance: WD/WN, no apparent distress - exam deferred due to COVID isolation Intake and Output 02/05/20 02/06/20 19:00 07:00 Intake Total 1119.6667 ml Output Total 850 ml 650 ml Balance 269.6667 ml -650 ml Intake Oral 508 ml IV Total 611.6667 ml Output Urine Total 850 ml 650 ml Laboratory Tests Test 02/06/20 06:50 White Blood Count 16.4 K/UL (4.8-10.8) H Red Blood Count 4.14 M/UL (4.70-6.10) L Hemoglobin 13.2 G/DL (14.2-18.0) L Hematocrit 38.0 % (42.0-52.0) L Mean Corpuscular Volume 92 FL (80-99) Mean Corpuscular Hemoglobin 31.8 PG (27.0-31.0) H Mean Corpuscular Hemoglobin Concent 34.7 G/DL (32.0-36.0) Red Cell Distribution Width 11.5 % (11.6-14.8) L Platelet Count 162 K/UL (150-450) Mean Platelet Volume 6.9 FL (6.5-10.1) Neutrophils (%) (Auto) % (45.0-75.0) Lymphocytes (%) (Auto) % (20.0-45.0) Monocytes (%) (Auto) % (1.0-10.0) Eosinophils (%) (Auto) % (0.0-3.0) Basophils (%) (Auto) % (0.0-2.0) Differential Total Cells Counted 100 Neutrophils % (Manual) 85 % (45-75) H Lymphocytes % (Manual) 12 % (20-45) L Monocytes % (Manual) 3 % (1-10) Eosinophils % (Manual) 0 % (0-3) Basophils % (Manual) 0 % (0-2) Band Neutrophils 0 % (0-8) Platelet Estimate Adequate Platelet Morphology Normal Red Blood Cell Morphology Normal Sodium Level 147 MMOL/L (136-145) H Potassium Level 3.1 MMOL/L (3.5-5.1) L Chloride Level 108 MMOL/L (98-107) H Carbon Dioxide Level 27 MMOL/L (21-32) Anion Gap 12 mmol/L (5-15) Blood Urea Nitrogen 15 mg/dL (7-18) Creatinine 0.8 MG/DL (0.55-1.30) Estimat Glomerular Filtration Rate > 60 mL/min (>60) Glucose Level 141 MG/DL (74-106) H Calcium Level 8.4 MG/DL (8.5-10.1) L Phosphorus Level 3.3 MG/DL (2.5-4.9) Microbiology Date/Time Source Procedure Growth Status 02/04/20 09:00 Nasopharynx Coronavirus COVID-19 PCR ([facility]) - Final Complete Wilda Pfeiffer MD February 06, 2020 16:48
--- NOTE | 2020-02-06 17:05 | NUR ---
NURSE NOTES: Reported KUB findings. Order received for Osmolite 1.5 at 45mL/hr. Feeding started at 1700. Addendum: 02/06/20 at 1825 by HAROON COHEN RN Patient gargling sputum. Attempted oral suctioning with no change so deep suctioned at this time. Breath sounds clear now.
[2020-02-06] MEDS: Docusate 100mg/10ml Liq NG SCH (17:08)
--- NOTE | 2020-02-06 18:00 | NUR ---
NURSE NOTES: Spoke with Son and updated him on his dad's change in condition and informed him of NGT and feeding. Son agreeable to plan of care.
--- NOTE | 2020-02-06 19:26 | NUR ---
HAND-OFF: Report given to Deepthi SMITH. Patient stable. Plan of care endoresed. SABINOID swab collected. Addendum: 02/06/20 at 1928 by HAROON COHEN RN REPORT GIVEN TO HARPAL
--- NOTE | 2020-02-06 19:46 | NUR ---
NURSE NOTES: Received report from LUIS Valles. Patient is lethargic, alert and oriented x 1. Patient has NGT in left nares, on Osmolite 1.5 @ 45cc/hour. On simple mask @ 10Lpm with no shortness or difficulty of breathing reported, saturating 95%. diagnostic tech is in placed, shows V-paced with no chest pain at this time. Patient is fall and aspiration precaution. Bilateral soft wrist restraints are on, informed AMD for renewal, order has been placed. IV site is on left forearm g-22 and right forearm g-18 saline lock that is asymptomatic, patent and intact. Safety measures are in placed, bed in lowest and lock position. Will continue plan of care
[2020-02-06 20:00] VITALS: BP 98/52
[2020-02-06] MEDS: Atorvastatin 20mg tab ORAL SCH (21:25)
[2020-02-06] MEDS: dilTIAZem HCl 30mg tab ORAL SCH (21:26)
[2020-02-07] VITALS: BP 105/52
[2020-02-07 04:00] VITALS: BP 101/57
[2020-02-07] MEDS: dilTIAZem HCl 30mg tab ORAL SCH ×3 (05:37→21:49)
[2020-02-07] MEDS: Piperacillin/Tazobactam 3.375 GM in NS 110 ML IVPB SCH ×3 (05:37→21:45)
[2020-02-07 06:54] LABS: HEMATOCRIT 34.7 % (42.0-52.0); HEMOGLOBIN 12.1 G/DL (14.2-18.0); MEAN CORPUSCULAR VOLUME 91 FL (80-99); PLATELET COUNT 140 K/UL (150-450); RED BLOOD COUNT 3.83 M/UL (4.70-6.10); RED CELL DISTRIBUTION WIDTH 11.3 % (11.6-14.8); WHITE BLOOD COUNT 12.3 K/UL (4.8-10.8)
--- NOTE | 2020-02-07 07:35 | NUR ---
HAND-OFF: Report given to Reena/Kelly. Patient is still on bilateral soft wrist restraints. Plan of care endorsed.
--- NOTE | 2020-02-07 07:43 | NUR ---
NURSE NOTES: Received report from LUIS Andrews. Pt asleep, lying comfortably in bed. Pt w/ audible rhonchi w/ no s/s of respiratory distress. On simple mask. NG tube in place with Osmolite 1.5 running @ 45 ml/hr. F/C draining by gravity. Wrist soft restraints on. Bed low, side rails up x3 and call light within reach. Will continue with plan of care.
[2020-02-07 07:58] LABS: ALANINE AMINOTRANSFERASE 24 U/L (12-78); ALBUMIN/GLOBULIN RATIO 0.6 (1.0-2.7); ALKALINE PHOSPHATASE 72 U/L (46-116); ANION GAP 5 mmol/L (5-15); ASPARTATE AMINO TRANSFERASE 27 U/L (15-37); BILIRUBIN,DIRECT 0.2 MG/DL (0.0-0.3); BILIRUBIN,TOTAL 0.5 MG/DL (0.2-1.0); BLOOD UREA NITROGEN 21 mg/dL (7-18); CARBON DIOXIDE 30 MMOL/L (21-32); CHLORIDE 111 MMOL/L (98-107); CREATININE 0.9 MG/DL (0.55-1.30); PHOSPHORUS 1.8 MG/DL (2.5-4.9); POTASSIUM 3.4 MMOL/L (3.5-5.1); SODIUM 146 MMOL/L (136-145)
[2020-02-07 08:00] VITALS: BP 130/61
[2020-02-07] MEDS: Heparin 5000 units/ml inj SUBQ SCH ×2 (09:00→21:00)
[2020-02-07] MEDS: Docusate 100mg/10ml Liq NG SCH ×3 (09:06→17:56)
[2020-02-07] MEDS: Donepezil 10mg tab ORAL SCH (09:07)
[2020-02-07] MEDS: Aspirin Baby 81mg ORAL SCH (09:07)
[2020-02-07] MEDS: Phospha 250 Neutral tab ORAL SCH ×3 (09:07→17:57)
[2020-02-07] MEDS: Memantine 10mg tab ORAL SCH (09:07)
[2020-02-07] MEDS: Vancomycin 750mg/D5W 275ml IVPB SCH ×2 (09:12)
[2020-02-07] MEDS ORDERED: Potassium Phosphate 20 MM in NS 275 ML IV ONE (10:00)
--- NOTE | 2020-02-07 10:13 | Nephrology Progress Note ---
Assessment/Plan Problem List: (1) Dehydration (2) Suspected 2019-nCoV infection (3) Urinary tract infection (4) Pacemaker Assessment Renal failure most likely dehydration, may have underlying chronic kidney disease Suspected 2019-nCoV infection Febrile illness, acute Dementia Pneumonia Urinary tract infection Status post pacemaker Plan IV potassium phosphate 20 mmol today Stable from renal standpoint of view Previously: Slow IV hydration, watch for CHF symptoms Monitor renal parameters Urine studies Antibiotics per ID Avoid nephrotoxic's Per orders Subjective ROS Limited/Unobtainable: No Constitutional: Reports: malaise Objective Objective Last 24 Hour Vital Signs Date Time Temp Pulse Resp B/P (MAP) Pulse Ox O2 Delivery O2 Flow Rate FiO2 02/07/20 08:00 97.5 80 20 130/61 (84) 99 02/07/20 08:00 80 02/07/20 05:37 101/59 02/07/20 04:00 99.1 88 24 101/57 (72) 92 02/07/20 04:00 78 02/07/20 00:00 98.8 84 23 105/52 (69) 90 02/06/20 22:10 100.7 02/06/20 21:26 89 98/52 02/06/20 21:00 Simple Mask 10.0 02/06/20 20:00 101.5 89 25 98/52 (67) 92 02/06/20 20:00 93 02/06/20 16:00 97.7 103 18 120/73 (89) 98 02/06/20 16:00 88 02/06/20 12:00 89 02/06/20 12:00 97.8 102 20 119/67 (84) 96 Intake and Output 02/06/20 02/07/20 19:00 07:00 Intake Total 840.000 ml Output Total 600 ml 0 ml Balance 240.000 ml 0 ml Intake Oral 0 ml IV Total 840.000 ml Output Urine Total 600 ml 0 ml Laboratory Tests 02/07/20 06:40: White Blood Count 12.3H, Red Blood Count 3.83L, Hemoglobin 12.1L, Hematocrit 34.7L, Mean Corpuscular Volume 91, Mean Corpuscular Hemoglobin 31.7H, Mean Corpuscular Hemoglobin Concent 34.9, Red Cell Distribution Width 11.3L, Platelet Count 140L, Mean Platelet Volume 7.1, Neutrophils (%) (Auto) , Lymphocytes (%) (Auto) , Monocytes (%) (Auto) , Eosinophils (%) (Auto) , Basophils (%) (Auto) , Differential Total Cells Counted 100, Neutrophils % ( Manual) 83H, Lymphocytes % (Manual) 9L, Monocytes % (Manual) 8, Eosinophils % ( Manual) 0, Basophils % (Manual) 0, Band Neutrophils 0, Platelet Estimate DecreasedL, Platelet Morphology Normal, Red Blood Cell Morphology Normal, Sodium Level 146H, Potassium Level 3.4L, Chloride Level 111H, Carbon Dioxide Level 30, Anion Gap 5, Blood Urea Nitrogen 21H, Creatinine 0.9, Estimat Glomerular Filtration Rate > 60, Glucose Level 179H, Calcium Level 8.0L, Phosphorus Level 1.8L, Magnesium Level 2.0, Total Bilirubin 0.5, Direct Bilirubin 0.2, Aspartate Amino Transf (AST/SGOT) 27, Alanine Aminotransferase ( ALT/SGPT) 24, Alkaline Phosphatase 72, Total Protein 5.6L, Albumin 2.0L, Globulin 3.6, Albumin/Globulin Ratio 0.6L Height (Feet): 5 Height (Inches): 6.00 Weight (Pounds): 115 General Appearance: no apparent distress Cardiovascular: tachycardia - Rate 80s Abdomen: soft Objective No change Cooper Chamorro MD February 07, 2020 10:13
--- NOTE | 2020-02-07 10:32 | NUR ---
RD ASSESSMENT & RECOMMENDATIONS SEE CARE ACTIVITY FOR COMPLETE ASSESSMENT DAILY ESTIMATED NEEDS: Needs based on Sepsis 54.1kg 30-35 kcals/kg 2466-9661 total kcals 1-2 g protein/kg 54-108 g total protein 25-30ml/kcal mL/kg 1413-3240 total fluid mLs NUTRITION DIAGNOSIS: Swallowing difficulty r/t h/o dementia, possible dysphagia as evidenced by pending CODING DIRECTOR nalini, currently NPO, now on NGT feeds. CURRENT TF: Osmolite 1.5 @45 ENTERAL NUTRITION RECOMMENDATIONS: rec TF CHANGE TO GLUCERNA 1.5 w/ goal of 45ml/hr x24 hrs to provide 1080ml, 1620 kcal, 89g pro, 820ml free H2O - Rec TF change to Glucerna 1.5 for improved glycemic control. - Start @25ml/hr for 6 hrs, advance as tolerated 10ml/hr q4-6 hrs to goal. - Flush per MD, HOB over 30 degrees ADDITIONAL RECOMMENDATIONS: 1) For Glycemic control, rec GLUCERNA as HPN -> Consult RD for non oral TF recs if not safe for oral po 2) Recalibrate bedscale for accurate CBW 119 lbs per SNF 3) Monitor lytes / hydration status w/ NPO Now started on NGT feeds, TF recs as above
--- NOTE | 2020-02-07 10:41 | NUR ---
POLICE COMMUNICATIONS DISPATCHER Discharge Summary: POLICE COMMUNICATIONS DISPATCHER planned to see Patient today for dysphagia management and tx, however, per RN, Patient is s/p change in status, now is NPO w/ NGT for primary nutrition/hydration and medication management. 02/07/20 Patient observed w/ copious oral secretions and gargling sputum, RN attempted oral suctioning however this did to alleviate symptoms. Patient was provided deep oral suctioning and breathing sounds improved. 02/06/20 On simple mask, 10 L; CXR IMPRESSION: 1. New/worsening patchy opacities in the right upper lung. 2. No significant change in the right lower lung opacities or the subsegmental atelectasis versus infiltrate in the left lung base. 02/05/20 On simple mask, 15 L POLICE COMMUNICATIONS DISPATCHER Bedside Swallow Evaluation completed on 02/03/20 INITIAL IMPRESSIONS: Mild oral and probable mild to moderate pharyngeal phase dysphagia compounded by respiratory distress and SOB with increased oral prep and transit time, reduced and delayed laryngeal elevation. Overt s/s of aspiration w/ thin liquids observed only. Now s/p NGT placement and worsening patchy opacities per CXR on 02/06/20. Patient will require re-referral to POLICE COMMUNICATIONS DISPATCHER for Bedside swallow evaluation to re-evaluate Patients swallowing safety and function s/p change in status. POLICE COMMUNICATIONS DISPATCHER bedside swallow evaluation recommendations no longer applicable s/p change in status. Please place new orders when Patient is deemed medically stable by MD to participate in POLICE COMMUNICATIONS DISPATCHER intervention.
--- NOTE | 2020-02-07 10:55 | Pulmonology Progress Note ---
Subjective ROS Limited/Unobtainable: No Allergies: Coded Allergies: No Known Allergies (Unverified , 02/03/20) Subjective no fevers, l on simple mask high O2 flow in isolation for suspected CoVID 19 COVID 19 02/03 not detected, another one ordered fever last night, currently afebrile, leukocytosis trending down Objective Last 24 Hour Vital Signs Date Time Temp Pulse Resp B/P (MAP) Pulse Ox O2 Delivery O2 Flow Rate FiO2 02/07/20 08:00 97.5 80 20 130/61 (84) 99 02/07/20 08:00 80 02/07/20 05:37 101/59 02/07/20 04:00 99.1 88 24 101/57 (72) 92 02/07/20 04:00 78 02/07/20 00:00 98.8 84 23 105/52 (69) 90 02/06/20 22:10 100.7 02/06/20 21:26 89 98/52 02/06/20 21:00 Simple Mask 10.0 02/06/20 20:00 101.5 89 25 98/52 (67) 92 02/06/20 20:00 93 02/06/20 16:00 97.7 103 18 120/73 (89) 98 02/06/20 16:00 88 02/06/20 12:00 89 02/06/20 12:00 97.8 102 20 119/67 (84) 96 Intake and Output 02/06/20 02/07/20 19:00 07:00 Intake Total 840.000 ml Output Total 600 ml 0 ml Balance 240.000 ml 0 ml Intake Oral 0 ml IV Total 840.000 ml Output Urine Total 600 ml 0 ml Objective General Appearance: mild acute distress HEENT: normocephalic, atraumatic, anicteric Respiratory: decreased breath sounds, rhonchi - right, Cardiovascular: normal rate Abdomen: soft, non tender, non distended Extremities: no edema Neurologic: abnormal gait, alert Musculoskeletal: atrophy General Appearance: other - mild rep distress Extremities: no edema Microbiology Date/Time Source Procedure Growth Status 02/06/20 10:48 Sputum Induced Gram Stain - Final Resulted 02/06/20 10:48 Sputum Induced Sputum Culture Pending Resulted Laboratory Tests 02/07/20 06:40: White Blood Count 12.3H, Red Blood Count 3.83L, Hemoglobin 12.1L, Hematocrit 34.7L, Mean Corpuscular Volume 91, Mean Corpuscular Hemoglobin 31.7H, Mean Corpuscular Hemoglobin Concent 34.9, Red Cell Distribution Width 11.3L, Platelet Count 140L, Mean Platelet Volume 7.1, Neutrophils (%) (Auto) , Lymphocytes (%) (Auto) , Monocytes (%) (Auto) , Eosinophils (%) (Auto) , Basophils (%) (Auto) , Differential Total Cells Counted 100, Neutrophils % ( Manual) 83H, Lymphocytes % (Manual) 9L, Monocytes % (Manual) 8, Eosinophils % ( Manual) 0, Basophils % (Manual) 0, Band Neutrophils 0, Platelet Estimate DecreasedL, Platelet Morphology Normal, Red Blood Cell Morphology Normal, Sodium Level 146H, Potassium Level 3.4L, Chloride Level 111H, Carbon Dioxide Level 30, Anion Gap 5, Blood Urea Nitrogen 21H, Creatinine 0.9, Estimat Glomerular Filtration Rate > 60, Glucose Level 179H, Calcium Level 8.0L, Phosphorus Level 1.8L, Magnesium Level 2.0, Total Bilirubin 0.5, Direct Bilirubin 0.2, Aspartate Amino Transf (AST/SGOT) 27, Alanine Aminotransferase ( ALT/SGPT) 24, Alkaline Phosphatase 72, Total Protein 5.6L, Albumin 2.0L, Globulin 3.6, Albumin/Globulin Ratio 0.6L Current Medications Medications (Trade) Dose Ordered Sig/Jodee Route PRN Reason Start Time Stop Time Status Last Admin Dose Admin Acetaminophen (Tylenol) 650 mg Q4H PRN ORAL fever 02/03/20 13:00 03/04/20 12:59 02/06/20 21:36 Albuterol Sulfate (Proventil) 2.5 mg Q4H PRN HHN Shortness of Breath 02/06/20 09:10 02/11/20 09:09 Aspirin (ASA) 81 mg DAILY ORAL 02/04/20 09:00 03/20/20 08:59 02/07/20 09:07 Atorvastatin Calcium (Lipitor) 20 mg BEDTIME ORAL 02/03/20 21:00 05/03/20 20:59 02/06/20 21:25 Diltiazem HCl (Cardizem) 30 mg EVERY 8 HOURS ORAL 02/06/20 22:00 03/07/20 21:59 Docusate Sodium (Colace) 100 mg THREE TIMES A DAY NG 02/06/20 18:00 03/07/20 17:59 02/07/20 09:06 Donepezil HCl (Aricept) 20 mg DAILY ORAL 02/04/20 09:00 03/05/20 08:59 02/07/20 09:07 Heparin Sodium (Porcine) (Heparin 5000 units/ml) 5,000 units EVERY 12 HOURS SUBQ 02/03/20 21:00 03/19/20 20:59 02/06/20 21:34 Hydralazine HCl (Apresoline) 25 mg Q4H PRN ORAL For blood pressure over 160 sy 02/03/20 11:00 05/03/20 10:59 Memantine (Namenda) 10 mg DAILY ORAL 02/05/20 09:00 03/06/20 08:59 02/07/20 09:07 Nitroglycerin (Ntg) 0.4 mg Q5M PRN SL Prn Chest Pain 02/03/20 13:30 03/04/20 13:29 Ondansetron HCl (Zofran) 4 mg Q6H PRN IVP Nausea & Vomiting 02/03/20 13:30 03/04/20 13:29 Pantoprazole (Protonix) 40 mg EVERY 12 HOURS ORAL 02/03/20 11:00 03/04/20 10:59 02/07/20 09:07 Phosphorus (Phospha 250 Neutral) 250 mg THREE TIMES A DAY ORAL 02/04/20 18:00 03/05/20 17:59 02/07/20 09:07 Piperacillin Sod/ Tazobactam Sod 3.375 gm/Sodium Chloride 110 ml @ 27.5 mls/hr EVERY 8 HOURS IVPB 02/06/20 14:00 02/11/20 13:59 02/07/20 05:37 Polyethylene Glycol (Miralax) 17 gm DAILYPRN PRN ORAL Constipation 02/03/20 13:30 03/04/20 13:29 Potassium Phosphate 20 mm/ Sodium Chloride 281.6667 ml @ 46.944 m... ONCE ONCE IV 02/07/20 10:00 02/07/20 15:59 02/07/20 10:21 Promethazine HCl/ Codeine (Phenergan with Codeine) 5 ml Q4H PRN ORAL For Cough 02/03/20 13:30 03/04/20 13:29 Temazepam (Restoril) 15 mg HSPRN PRN ORAL Insomnia 02/03/20 21:00 02/10/20 20:59 Vancomycin HCl (Vanco rx to dose) 1 ea DAILY PRN MISC Per rx protocol 02/03/20 12:45 03/04/20 12:44 Vancomycin HCl 750 mg/Dextrose 275 ml @ 183.333 mls/hr DAILY IVPB 02/05/20 11:00 02/10/20 10:59 02/07/20 09:12 Assessment/Plan Assessment/Plan ASSESSMENT Severe sepsis Suspected COVID-19 infection -not detected Acute hypoxemic RF requiring NRM PNA UTI E coli BRIANA possibly on underlying CKD Dehydration CAD, s/p CABG pacemaker severe protein calorie malnutrition anemia Alzheimer dementia aspiration risk e/lyte imbalance / K, P PLAN OF CARE tele isolation SARS COV-2 by PCR 02/03 not detecetd another one 02/05 pending titrate O2 to keep sat above 92 pulmonary toilet / MDI Proventil added ? Aspiration initial CXR R base infiltrate CXR 02/05 with new/worsening patchy opacities in the right upper lung probably aspirated aspiration precaution swallow eval on simple mask titrate O 2 to keep sat above 90% abx as per ID BCX 02.02 NGTD UCX 02/02 E coli SCX pending SARS-CoV-2 02/02 by PCR not detected fup with another one 02/05 keep in isolation gentle IV hydration monitor renal parameters lytes K and P replaced prior DVT GI prophylaxis continue ASA and statin protein supplement as per RD recs monitor H&H with goal to keep Hgb above 7, anemia w/up noted DNR/DNI status case discussed and evaluated by supervising physician Fabiola Bridges NP February 07, 2020 10:55
--- NOTE | 2020-02-07 11:02 | NUR ---
*-* INSURANCE *-* UPDATED CLINICALS HAVE BEEN FAXED TO: [facility] [phone] FAX [phone] [address] P: [phone]
--- NOTE | 2020-02-07 11:59 | Infectious Diseases Prog Note ---
Assessment/Plan Assessment/Plan Assessment: Severe Sepsis Acute hypoxic respiratory failure- on simple mask 15L- high suspicion for COVID19- 1st sample neg Pneumonia -02/05 sp cx p CXR: New/worsening patchy opacities in the right upper lung. No significant change in the right lower lung opacities or the subsegmental atelectasis versus infiltrate in the left lung base. -CXR Right basilar infiltrate. 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 Will continue to follow along with you. Discussed with RN. Subjective Allergies: Coded Allergies: No Known Allergies (Unverified , 02/03/20) Subjective Tm 101.5 on simple mask 10L wbc improving Objective Vital Signs Last 24 Hour Vital Signs Date Time Temp Pulse Resp B/P (MAP) Pulse Ox O2 Delivery O2 Flow Rate FiO2 02/07/20 08:00 97.5 80 20 130/61 (84) 99 02/07/20 08:00 80 02/07/20 05:37 101/59 02/07/20 04:00 99.1 88 24 101/57 (72) 92 02/07/20 04:00 78 02/07/20 00:00 98.8 84 23 105/52 (69) 90 02/06/20 22:10 100.7 02/06/20 21:26 89 98/52 02/06/20 21:00 Simple Mask 10.0 02/06/20 20:00 101.5 89 25 98/52 (67) 92 02/06/20 20:00 93 02/06/20 16:00 97.7 103 18 120/73 (89) 98 02/06/20 16:00 88 02/06/20 12:00 89 02/06/20 12:00 97.8 102 20 119/67 (84) 96 Height (Feet): 5 Height (Inches): 6.00 Weight (Pounds): 115 Objective not examined to limit COVID19 exposure Microbiology Date/Time Source Procedure Growth Status 02/06/20 10:48 Sputum Induced Gram Stain - Final Resulted 02/06/20 10:48 Sputum Induced Sputum Culture Pending Resulted Laboratory Tests Test 02/07/20 06:40 White Blood Count 12.3 K/UL (4.8-10.8) H Red Blood Count 3.83 M/UL (4.70-6.10) L Hemoglobin 12.1 G/DL (14.2-18.0) L Hematocrit 34.7 % (42.0-52.0) L Mean Corpuscular Volume 91 FL (80-99) Mean Corpuscular Hemoglobin 31.7 PG (27.0-31.0) H Mean Corpuscular Hemoglobin Concent 34.9 G/DL (32.0-36.0) Red Cell Distribution Width 11.3 % (11.6-14.8) L Platelet Count 140 K/UL (150-450) L Mean Platelet Volume 7.1 FL (6.5-10.1) Neutrophils (%) (Auto) % (45.0-75.0) Lymphocytes (%) (Auto) % (20.0-45.0) Monocytes (%) (Auto) % (1.0-10.0) Eosinophils (%) (Auto) % (0.0-3.0) Basophils (%) (Auto) % (0.0-2.0) Differential Total Cells Counted 100 Neutrophils % (Manual) 83 % (45-75) H Lymphocytes % (Manual) 9 % (20-45) L Monocytes % (Manual) 8 % (1-10) Eosinophils % (Manual) 0 % (0-3) Basophils % (Manual) 0 % (0-2) Band Neutrophils 0 % (0-8) Platelet Estimate Decreased L Platelet Morphology Normal Red Blood Cell Morphology Normal Sodium Level 146 MMOL/L (136-145) H Potassium Level 3.4 MMOL/L (3.5-5.1) L Chloride Level 111 MMOL/L (98-107) H Carbon Dioxide Level 30 MMOL/L (21-32) Anion Gap 5 mmol/L (5-15) Blood Urea Nitrogen 21 mg/dL (7-18) H Creatinine 0.9 MG/DL (0.55-1.30) Estimat Glomerular Filtration Rate > 60 mL/min (>60) Glucose Level 179 MG/DL (74-106) H Calcium Level 8.0 MG/DL (8.5-10.1) L Phosphorus Level 1.8 MG/DL (2.5-4.9) L Magnesium Level 2.0 MG/DL (1.8-2.4) Total Bilirubin 0.5 MG/DL (0.2-1.0) Direct Bilirubin 0.2 MG/DL (0.0-0.3) Aspartate Amino Transf (AST/SGOT) 27 U/L (15-37) Alanine Aminotransferase (ALT/SGPT) 24 U/L (12-78) Alkaline Phosphatase 72 U/L (46-116) Total Protein 5.6 G/DL (6.4-8.2) L Albumin 2.0 G/DL (3.4-5.0) L Globulin 3.6 g/dL Albumin/Globulin Ratio 0.6 (1.0-2.7) L Current Medications Medications (Trade) Dose Ordered Sig/Jodee Route PRN Reason Start Time Stop Time Status Last Admin Dose Admin Acetaminophen (Tylenol) 650 mg Q4H PRN ORAL fever 02/03/20 13:00 03/04/20 12:59 02/06/20 21:36 Albuterol Sulfate (Proventil) 2.5 mg Q4H PRN HHN Shortness of Breath 02/06/20 09:10 02/11/20 09:09 Aspirin (ASA) 81 mg DAILY ORAL 02/04/20 09:00 03/20/20 08:59 02/07/20 09:07 Atorvastatin Calcium (Lipitor) 20 mg BEDTIME ORAL 02/03/20 21:00 05/03/20 20:59 02/06/20 21:25 Diltiazem HCl (Cardizem) 30 mg EVERY 8 HOURS ORAL 02/06/20 22:00 03/07/20 21:59 Docusate Sodium (Colace) 100 mg THREE TIMES A DAY NG 02/06/20 18:00 03/07/20 17:59 02/07/20 09:06 Donepezil HCl (Aricept) 20 mg DAILY ORAL 02/04/20 09:00 03/05/20 08:59 02/07/20 09:07 Heparin Sodium (Porcine) (Heparin 5000 units/ml) 5,000 units EVERY 12 HOURS SUBQ 02/03/20 21:00 03/19/20 20:59 02/06/20 21:34 Hydralazine HCl (Apresoline) 25 mg Q4H PRN ORAL For blood pressure over 160 sy 02/03/20 11:00 05/03/20 10:59 Memantine (Namenda) 10 mg DAILY ORAL 02/05/20 09:00 03/06/20 08:59 02/07/20 09:07 Nitroglycerin (Ntg) 0.4 mg Q5M PRN SL Prn Chest Pain 02/03/20 13:30 03/04/20 13:29 Ondansetron HCl (Zofran) 4 mg Q6H PRN IVP Nausea & Vomiting 02/03/20 13:30 03/04/20 13:29 Pantoprazole (Protonix) 40 mg EVERY 12 HOURS ORAL 02/03/20 11:00 03/04/20 10:59 02/07/20 09:07 Phosphorus (Phospha 250 Neutral) 250 mg THREE TIMES A DAY ORAL 02/04/20 18:00 03/05/20 17:59 02/07/20 09:07 Piperacillin Sod/ Tazobactam Sod 3.375 gm/Sodium Chloride 110 ml @ 27.5 mls/hr EVERY 8 HOURS IVPB 02/06/20 14:00 02/11/20 13:59 02/07/20 05:37 Polyethylene Glycol (Miralax) 17 gm DAILYPRN PRN ORAL Constipation 02/03/20 13:30 03/04/20 13:29 Potassium Phosphate 20 mm/ Sodium Chloride 281.6667 ml @ 46.944 m... ONCE ONCE IV 02/07/20 10:00 02/07/20 15:59 02/07/20 10:21 Promethazine HCl/ Codeine (Phenergan with Codeine) 5 ml Q4H PRN ORAL For Cough 02/03/20 13:30 03/04/20 13:29 Temazepam (Restoril) 15 mg HSPRN PRN ORAL Insomnia 02/03/20 21:00 02/10/20 20:59 Vancomycin HCl (Vanco rx to dose) 1 ea DAILY PRN MISC Per rx protocol 02/03/20 12:45 03/04/20 12:44 Vancomycin HCl 750 mg/Dextrose 275 ml @ 183.333 mls/hr DAILY IVPB 02/05/20 11:00 02/10/20 10:59 02/07/20 09:12 Jocelyn Olson M.D. February 07, 2020 11:59
[2020-02-07 12:00] VITALS: BP 135/80
--- NOTE | 2020-02-07 15:30 | NUR ---
CASE MANAGEMENT:REVIEW 02/07/20 SI: SEPSIS. PNA ALTERED. LESS RESPONSIVE LAST NOC T~100.7 BP~98/52 97.5 80 20 130/61 99% ON 10L VIA MASK IS: IV KPHOS X1 IV ZOSYN Q8HRS IV VANCOMYCIN QD CARDIZEM PO Q8HRS NAMENDA PO QD PHOSPHORUS PO TID ARICEPT PO QD ASA PO QD HEPARIN SQ Q12 PROTONIX PO Q12 : TELEMETRY STATUS DCP: FROM [facility] PLAN: COVID NOT DETECTED 2ND COVID SWAB DONE 02/06/20....RESULTS PENDING
[2020-02-07 16:00] VITALS: BP 121/62
--- NOTE | 2020-02-07 16:37 | NUR ---
NURSE NOTES:WOUND CARE NOTES:Pt presented with Category 2 skin tear L elbow. 20% flap loss ,80% flap in-situ. In addition scattered senile purpuras noted to R and L forearm. Non-blanching erythema without induration noted to Sacrum. Tx.Plan: Cleanse L arm Skin tear with Saline. Apply Silvasorb Gel. Cover with Optifoam drsg. Change every 7 days and prn. Apply Moisture Barrier Paste to Sacrum. Cover with Optifoam drsg. Change every 7 days and prn. Off-load heels with Pillow. reposition at least every 2houors or as tolerated.
--- NOTE | 2020-02-07 18:26 | Internal Med Progress Note ---
Subjective Date of Service: February 07, 2020 Physician Name Ramiro Harry Attending Physician Roby Grace MD Current Medications Medications (Trade) Dose Ordered Sig/Jodee Route PRN Reason Start Time Stop Time Status Last Admin Dose Admin Acetaminophen (Tylenol) 650 mg Q4H PRN ORAL fever 02/03/20 13:00 03/04/20 12:59 02/06/20 21:36 Albuterol Sulfate (Proventil) 2.5 mg Q4H PRN HHN Shortness of Breath 02/06/20 09:10 02/11/20 09:09 Aspirin (ASA) 81 mg DAILY ORAL 02/04/20 09:00 03/20/20 08:59 02/07/20 09:07 Atorvastatin Calcium (Lipitor) 20 mg BEDTIME ORAL 02/03/20 21:00 05/03/20 20:59 02/06/20 21:25 Diltiazem HCl (Cardizem) 30 mg EVERY 8 HOURS ORAL 02/06/20 22:00 03/07/20 21:59 02/07/20 13:55 Docusate Sodium (Colace) 100 mg THREE TIMES A DAY NG 02/06/20 18:00 03/07/20 17:59 02/07/20 17:56 Donepezil HCl (Aricept) 20 mg DAILY ORAL 02/04/20 09:00 03/05/20 08:59 02/07/20 09:07 Heparin Sodium (Porcine) (Heparin 5000 units/ml) 5,000 units EVERY 12 HOURS SUBQ 02/03/20 21:00 03/19/20 20:59 02/06/20 21:34 Hydralazine HCl (Apresoline) 25 mg Q4H PRN ORAL For blood pressure over 160 sy 02/03/20 11:00 05/03/20 10:59 Memantine (Namenda) 10 mg DAILY ORAL 02/05/20 09:00 03/06/20 08:59 02/07/20 09:07 Nitroglycerin (Ntg) 0.4 mg Q5M PRN SL Prn Chest Pain 02/03/20 13:30 03/04/20 13:29 Ondansetron HCl (Zofran) 4 mg Q6H PRN IVP Nausea & Vomiting 02/03/20 13:30 03/04/20 13:29 Pantoprazole (Protonix) 40 mg EVERY 12 HOURS ORAL 02/03/20 11:00 03/04/20 10:59 02/07/20 09:07 Phosphorus (Phospha 250 Neutral) 250 mg THREE TIMES A DAY ORAL 02/04/20 18:00 03/05/20 17:59 02/07/20 17:57 Piperacillin Sod/ Tazobactam Sod 3.375 gm/Sodium Chloride 110 ml @ 27.5 mls/hr EVERY 8 HOURS IVPB 02/06/20 14:00 02/11/20 13:59 02/07/20 13:55 Polyethylene Glycol (Miralax) 17 gm DAILYPRN PRN ORAL Constipation 02/03/20 13:30 03/04/20 13:29 Promethazine HCl/ Codeine (Phenergan with Codeine) 5 ml Q4H PRN ORAL For Cough 02/03/20 13:30 03/04/20 13:29 Temazepam (Restoril) 15 mg HSPRN PRN ORAL Insomnia 02/03/20 21:00 02/10/20 20:59 Vancomycin HCl (Vanco rx to dose) 1 ea DAILY PRN MISC Per rx protocol 02/03/20 12:45 03/04/20 12:44 Vancomycin HCl 750 mg/Dextrose 275 ml @ 183.333 mls/hr DAILY IVPB 02/05/20 11:00 02/10/20 10:59 02/07/20 09:12 Allergies: Coded Allergies: No Known Allergies (Unverified , 02/03/20) ROS Limited/Unobtainable: Yes Subjective 84 YO M admitted with fever and shortness of breath. Now sepsis, UTI and pneumonia. Cover for Int Med-Dr Grace Objective Last Vital Signs Date Time Temp Pulse Resp B/P (MAP) Pulse Ox O2 Delivery O2 Flow Rate FiO2 02/07/20 13:55 78 135/80 02/07/20 12:00 97.4 20 95 02/07/20 09:00 Simple Mask 10.0 02/04/20 03:14 100 Laboratory Tests Test 02/07/20 06:40 White Blood Count 12.3 K/UL (4.8-10.8) H Red Blood Count 3.83 M/UL (4.70-6.10) L Hemoglobin 12.1 G/DL (14.2-18.0) L Hematocrit 34.7 % (42.0-52.0) L Mean Corpuscular Volume 91 FL (80-99) Mean Corpuscular Hemoglobin 31.7 PG (27.0-31.0) H Mean Corpuscular Hemoglobin Concent 34.9 G/DL (32.0-36.0) Red Cell Distribution Width 11.3 % (11.6-14.8) L Platelet Count 140 K/UL (150-450) L Mean Platelet Volume 7.1 FL (6.5-10.1) Neutrophils (%) (Auto) % (45.0-75.0) Lymphocytes (%) (Auto) % (20.0-45.0) Monocytes (%) (Auto) % (1.0-10.0) Eosinophils (%) (Auto) % (0.0-3.0) Basophils (%) (Auto) % (0.0-2.0) Differential Total Cells Counted 100 Neutrophils % (Manual) 83 % (45-75) H Lymphocytes % (Manual) 9 % (20-45) L Monocytes % (Manual) 8 % (1-10) Eosinophils % (Manual) 0 % (0-3) Basophils % (Manual) 0 % (0-2) Band Neutrophils 0 % (0-8) Platelet Estimate Decreased L Platelet Morphology Normal Red Blood Cell Morphology Normal Sodium Level 146 MMOL/L (136-145) H Potassium Level 3.4 MMOL/L (3.5-5.1) L Chloride Level 111 MMOL/L (98-107) H Carbon Dioxide Level 30 MMOL/L (21-32) Anion Gap 5 mmol/L (5-15) Blood Urea Nitrogen 21 mg/dL (7-18) H Creatinine 0.9 MG/DL (0.55-1.30) Estimat Glomerular Filtration Rate > 60 mL/min (>60) Glucose Level 179 MG/DL (74-106) H Calcium Level 8.0 MG/DL (8.5-10.1) L Phosphorus Level 1.8 MG/DL (2.5-4.9) L Magnesium Level 2.0 MG/DL (1.8-2.4) Total Bilirubin 0.5 MG/DL (0.2-1.0) Direct Bilirubin 0.2 MG/DL (0.0-0.3) Aspartate Amino Transf (AST/SGOT) 27 U/L (15-37) Alanine Aminotransferase (ALT/SGPT) 24 U/L (12-78) Alkaline Phosphatase 72 U/L (46-116) Total Protein 5.6 G/DL (6.4-8.2) L Albumin 2.0 G/DL (3.4-5.0) L Globulin 3.6 g/dL Albumin/Globulin Ratio 0.6 (1.0-2.7) L Microbiology Date/Time Source Procedure Growth Status 02/06/20 10:48 Sputum Induced Gram Stain - Final Resulted 02/06/20 10:48 Sputum Induced Sputum Culture Pending Resulted Intake and Output 02/06/20 02/07/20 19:00 07:00 Intake Total 840.000 ml Output Total 600 ml 0 ml Balance 240.000 ml 0 ml Intake Oral 0 ml IV Total 840.000 ml Output Urine Total 600 ml 0 ml Objective Objective General: No acute distress, less responsive, On Venti Mask HEENT: NCAT, sclera anicteric, PERRL, EOMI. Neck: Supple, no significant jugular venous distention, Lungs: Fair inspiratory effort, decreased air at the bases, no Wheeze or Rales. Heart: Regular rate and rhythm, normal S1/S2, no murmurs, + PPM. Abdomen: soft, nontender, nondistended. Normoactive bowel sounds. / Rectal: Refused and deferred. Extremities: No Cyanosis , clubbing or edema. Neuro: A&O x 2, Able to move all extremities slowly. Skin: warm, no rash, Assessment/Plan Assessment/Plan Assessment/Plan Assessment/Plan Assessment/Plan Severe Sepsis Acute hypoxic respiratory failure- on simple mask 15L- [id number] Pneumonia Acute E. Coli UTI Thrombocytopenia BRIANA, improving Lactic acidosis, SP hx of recent UTI (~2 weeks [employer]) Alzheimer's Dementia s/p PPM CAD s/p CABG dysphagia s/p GT (now removed) [place] resident ([facility]) - no reported COVID patients in this facility as of 02/03/20 Plan: -Abx: IV Vancomycin and Zosyn , DC Cefepime IV -CODE STATUS: DNR/DNI -Follow-up with cultures and laboratories. -Passed the swallow study will start on diet. -DVT prophylaxis: Heparin subcu. -1ST COVID-19 test negative -2D Echo once is clear from COVID-19 infection Ramiro Harry MD February 07, 2020 18:26
--- NOTE | 2020-02-07 19:13 | Cardiology Progress Note ---
Assessment/Plan Assessment/Plan 1. Respiratory decompensation. 2. Probable sepsis. 3. Dementia. 4. Coronary artery disease, status post coronary bypass grafting. 5. Urinary tract infection. 6. Renal insufficiency. trop neg probnp in min increase covid #1 neg #2 pending labs noted no fever per rn not coughing n empiric abx there apparently not have been any pt with covid + at the snf the pat has been staying at tele sinus intermittent v pacing echo once 2nd covid excluded tele reviewed: intermittent v pacing a sensed Subjective Subjective Pt asleep, lying comfortably in bed. Pt w/ audible rhonchi w/ no s/s of respiratory distress. On simple mask. NG tube in place with Osmolite 1.5 running @ 45 ml/hr. F/C draining by gravity. Wrist soft restraints Objective Last 24 Hour Vital Signs Date Time Temp Pulse Resp B/P (MAP) Pulse Ox O2 Delivery O2 Flow Rate FiO2 02/07/20 16:00 97.5 74 20 121/62 (81) 96 02/07/20 16:00 74 02/07/20 13:55 78 135/80 02/07/20 12:00 78 02/07/20 12:00 97.4 86 20 135/80 (98) 95 02/07/20 09:00 Simple Mask 10.0 02/07/20 08:00 97.5 80 20 130/61 (84) 99 02/07/20 08:00 80 02/07/20 05:37 101/59 02/07/20 04:00 99.1 88 24 101/57 (72) 92 02/07/20 04:00 78 02/07/20 00:00 98.8 84 23 105/52 (69) 90 02/06/20 22:10 100.7 02/06/20 21:26 89 98/52 02/06/20 21:00 Simple Mask 10.0 02/06/20 20:00 101.5 89 25 98/52 (67) 92 02/06/20 20:00 93 General Appearance: other Intake and Output 02/06/20 02/07/20 19:00 07:00 Intake Total 840.000 ml 45 ml Output Total 600 ml 0 ml Balance 240.000 ml 45 ml Intake Oral 0 ml IV Total 840.000 ml Tube Feeding 45 ml Output Urine Total 600 ml 0 ml Laboratory Tests Test 02/07/20 06:40 White Blood Count 12.3 K/UL (4.8-10.8) H Red Blood Count 3.83 M/UL (4.70-6.10) L Hemoglobin 12.1 G/DL (14.2-18.0) L Hematocrit 34.7 % (42.0-52.0) L Mean Corpuscular Volume 91 FL (80-99) Mean Corpuscular Hemoglobin 31.7 PG (27.0-31.0) H Mean Corpuscular Hemoglobin Concent 34.9 G/DL (32.0-36.0) Red Cell Distribution Width 11.3 % (11.6-14.8) L Platelet Count 140 K/UL (150-450) L Mean Platelet Volume 7.1 FL (6.5-10.1) Neutrophils (%) (Auto) % (45.0-75.0) Lymphocytes (%) (Auto) % (20.0-45.0) Monocytes (%) (Auto) % (1.0-10.0) Eosinophils (%) (Auto) % (0.0-3.0) Basophils (%) (Auto) % (0.0-2.0) Differential Total Cells Counted 100 Neutrophils % (Manual) 83 % (45-75) H Lymphocytes % (Manual) 9 % (20-45) L Monocytes % (Manual) 8 % (1-10) Eosinophils % (Manual) 0 % (0-3) Basophils % (Manual) 0 % (0-2) Band Neutrophils 0 % (0-8) Platelet Estimate Decreased L Platelet Morphology Normal Red Blood Cell Morphology Normal Sodium Level 146 MMOL/L (136-145) H Potassium Level 3.4 MMOL/L (3.5-5.1) L Chloride Level 111 MMOL/L (98-107) H Carbon Dioxide Level 30 MMOL/L (21-32) Anion Gap 5 mmol/L (5-15) Blood Urea Nitrogen 21 mg/dL (7-18) H Creatinine 0.9 MG/DL (0.55-1.30) Estimat Glomerular Filtration Rate > 60 mL/min (>60) Glucose Level 179 MG/DL (74-106) H Calcium Level 8.0 MG/DL (8.5-10.1) L Phosphorus Level 1.8 MG/DL (2.5-4.9) L Magnesium Level 2.0 MG/DL (1.8-2.4) Total Bilirubin 0.5 MG/DL (0.2-1.0) Direct Bilirubin 0.2 MG/DL (0.0-0.3) Aspartate Amino Transf (AST/SGOT) 27 U/L (15-37) Alanine Aminotransferase (ALT/SGPT) 24 U/L (12-78) Alkaline Phosphatase 72 U/L (46-116) Total Protein 5.6 G/DL (6.4-8.2) L Albumin 2.0 G/DL (3.4-5.0) L Globulin 3.6 g/dL Albumin/Globulin Ratio 0.6 (1.0-2.7) L Microbiology Date/Time Source Procedure Growth Status 02/06/20 10:48 Sputum Induced Gram Stain - Final Resulted 02/06/20 10:48 Sputum Induced Sputum Culture Pending Resulted Objective per pulm PA : General Appearance: mild acute distress HEENT: normocephalic, atraumatic, anicteric Respiratory: decreased breath sounds, rhonchi - right, Cardiovascular: normal rate Abdomen: soft, non tender, non distended Extremities: no edema Dio Calzada MD February 07, 2020 19:13
--- NOTE | 2020-02-07 19:40 | NUR ---
NURSE NOTES: Received pt and report from LUIS Valles. Observed pt resting in bed with both eyes closed; arousable to voice and light shake. Pt is A/Ox1. bus driver/monitor is in placed; pt is AV-pacing. IV site intact, asymptomatic, and patent. Pt has an NGT in placed for medication and feeding of Osmolite 1.5 @45cc/hr (goal rate). Hill in placed for urinary retention. Bed is in the lowest position and locked. Call light and bedside table is within reach. No signs/symptoms of acute distress noted at this time. Will continue plan of care.
--- NOTE | 2020-02-07 19:48 | NUR ---
HAND-OFF: Report given to Coco. Patient stable. Plan of care enrdorsed. Addendum: 02/07/20 at 2000 by HAROON COHEN RN Endorsed that helms may be leaking.
[2020-02-07 20:00] VITALS: BP 124/57
[2020-02-07] MEDS: Atorvastatin 20mg tab ORAL SCH (21:44)
[2020-02-08] VITALS: BP 121/55
[2020-02-08 04:00] VITALS: BP 134/74
[2020-02-08] MEDS: Piperacillin/Tazobactam 3.375 GM in NS 110 ML IVPB SCH ×3 (05:30→22:10)
[2020-02-08] MEDS: dilTIAZem HCl 30mg tab ORAL SCH ×3 (05:44→22:11)
[2020-02-08 07:21] LABS: ANION GAP 6 mmol/L (5-15); BLOOD UREA NITROGEN 20 mg/dL (7-18); CARBON DIOXIDE 31 MMOL/L (21-32); CHLORIDE 109 MMOL/L (98-107); CREATININE 0.8 MG/DL (0.55-1.30); POTASSIUM 3.3 MMOL/L (3.5-5.1); SODIUM 146 MMOL/L (136-145)
[2020-02-08 07:22] LABS: HEMATOCRIT 32.5 % (42.0-52.0); HEMOGLOBIN 11.5 G/DL (14.2-18.0); MEAN CORPUSCULAR VOLUME 90 FL (80-99); PLATELET COUNT 157 K/UL (150-450); RED CELL DISTRIBUTION WIDTH 11.3 % (11.6-14.8); WHITE BLOOD COUNT 12.2 K/UL (4.8-10.8)
--- NOTE | 2020-02-08 07:35 | NUR ---
HAND-OFF: Report given to LUIS Goode. Plan of care endorsed.
--- NOTE | 2020-02-08 07:40 | NUR ---
NURSE NOTES: Received report from LUIS Sepulveda. Patient is resting comfortably in bed and awake. Patient has no s/s of respiratory distress. On simple mask. NG tube in place with Osmolite 1.5 running @ 45 ml/hr and patient tolerating well. F/C draining by gravity. Bilateral wrist soft restraints on. Bed is on lowest level, side rails up x3, and brakes engaged for safety. Call light within reach. Will continue with the plan of care.
[2020-02-08 08:00] VITALS: BP 110/88
[2020-02-08] MEDS: Memantine 10mg tab ORAL SCH (08:06)
[2020-02-08] MEDS: Phospha 250 Neutral tab ORAL SCH ×3 (08:08→17:16)
[2020-02-08] MEDS: Donepezil 10mg tab ORAL SCH (08:09)
[2020-02-08] MEDS: Aspirin Baby 81mg ORAL SCH (08:09)
[2020-02-08] MEDS: Docusate 100mg/10ml Liq NG SCH ×3 (08:09→17:17)
[2020-02-08] MEDS: Heparin 5000 units/ml inj SUBQ SCH ×2 (08:10→22:11)
--- NOTE | 2020-02-08 08:37 | NUR ---
RADIOLOGY: PCXR COMPLETED 0800HRS. NF
--- NOTE | 2020-02-08 08:53 | NUR ---
CASE MANAGEMENT:REVIEW 02/08/20 SI: SEPSIS. PNA. E COLI UTI 97.3 87 20 141/67 98% ON 12L VIA MASK WBC+12.2 K-3.3 CA-8.0 IS: IV ZOSYN Q8HRS IV VANCOMYCIN QD K-DUR PO BID CARDIZEM PO Q8HRS NAMENDA PO QD PHOSPHORUS PO TID ARICEPT PO QD ASA PO QD HEPARIN SQ Q12 PROTONIX PO Q12 : TELEMETRY STATUS DCP: FROM [facility] PLAN: COVID NOT DETECTED X1 2ND COVID SWAB DONE 02/06/20....RESULTS PENDING
[2020-02-08] MEDS ORDERED: Vancomycin 750mg/D5W 275ml IVPB SCH ×2 (09:00)
--- NOTE | 2020-02-08 09:40 | Diagnostic Imaging Report ---
Procedure: XRAY Chest 1v Reason for study: Reason For Exam: SOB Comparison films: 02/06/2020. FINDINGS: NG tube is in good position. Cardiac pacer in place. Vascularity is normal. There is slight increase in densities of right lung infiltrate. Left retrocardiac densities and basilar densities unchanged. Bilateral apical pleural parenchymal scarring again noted. Cardiac and mediastinal silhouette are within normal limits. CP angles are sharp. The bony thorax appear unremarkable. IMPRESSION: New NG tube in good position. Increased right lung infiltrates.
[2020-02-08] MEDS: Vancomycin 750mg/D5W 275ml IVPB SCH ×2 (09:50)
--- NOTE | 2020-02-08 11:57 | Pulmonology Progress Note ---
Subjective ROS Limited/Unobtainable: No Constitutional: Reports: no symptoms HEENT: Repors: no symptoms Allergies: Coded Allergies: No Known Allergies (Unverified , 02/03/20) Objective Last 24 Hour Vital Signs Date Time Temp Pulse Resp B/P (MAP) Pulse Ox O2 Delivery O2 Flow Rate FiO2 02/08/20 09:00 Simple Mask 12.0 02/08/20 08:00 72 02/08/20 08:00 98.2 72 20 110/88 (95) 97 02/08/20 05:44 76 141/67 02/08/20 04:00 97.3 80 20 134/74 (94) 98 02/08/20 04:00 87 02/08/20 00:00 73 02/08/20 00:00 97.2 75 21 121/55 (77) 98 02/07/20 21:49 79 128/62 02/07/20 21:00 Simple Mask 12.0 02/07/20 20:00 75 02/07/20 20:00 98.4 79 20 124/57 (79) 99 02/07/20 16:00 97.5 74 20 121/62 (81) 96 02/07/20 16:00 74 02/07/20 13:55 78 135/80 02/07/20 12:00 78 02/07/20 12:00 97.4 86 20 135/80 (98) 95 Intake and Output 02/07/20 02/08/20 19:00 07:00 Intake Total 1161.714 ml Output Total 300 ml 550 ml Balance 861.714 ml -550 ml IV Total 666.714 ml Tube Feeding 495 ml Output Urine Total 300 ml 550 ml # Voids 1 # Bowel Movements 1 1 General Appearance: cachetic, other - mild rep distress HEENT: normocephalic, atraumatic Respiratory: rhonchi - left, rhonchi - right Cardiovascular: normal peripheral pulses Genitourinary: normal external genitalia Extremities: no cyanosis, no clubbing, no edema Skin: no rash Neurologic: radiation monitor II-XII grossly normal, no motor/sensory deficits Lymphatic: no neck adenopathy Microbiology Date/Time Source Procedure Growth Status 02/06/20 10:48 Sputum Induced Gram Stain - Final Resulted 02/06/20 10:48 Sputum Culture - Preliminary Gram Negative Bacillus 1 Resulted Laboratory Tests 02/08/20 06:45: White Blood Count 12.2H, Red Blood Count 3.60L, Hemoglobin 11.5L, Hematocrit 32.5L, Mean Corpuscular Volume 90, Mean Corpuscular Hemoglobin 32.0H, Mean Corpuscular Hemoglobin Concent 35.5, Red Cell Distribution Width 11.3L, Platelet Count 157, Mean Platelet Volume 7.8, Neutrophils (%) (Auto) , Lymphocytes (%) (Auto) , Monocytes (%) (Auto) , Eosinophils (%) (Auto) , Basophils (%) (Auto) , Differential Total Cells Counted 100, Neutrophils % ( Manual) 89H, Lymphocytes % (Manual) 7L, Monocytes % (Manual) 4, Eosinophils % ( Manual) 0, Basophils % (Manual) 0, Band Neutrophils 0, Platelet Estimate Adequate, Platelet Morphology Normal, Hypochromasia 1+, Sodium Level 146H, Potassium Level 3.3L, Chloride Level 109H, Carbon Dioxide Level 31, Anion Gap 6 , Blood Urea Nitrogen 20H, Creatinine 0.8, Estimat Glomerular Filtration Rate > 60, Glucose Level 188H, Calcium Level 8.0L 02/08/20 08:10: Vancomycin Level Trough 2.8L Current Medications Medications (Trade) Dose Ordered Sig/Jodee Route PRN Reason Start Time Stop Time Status Last Admin Dose Admin Acetaminophen (Tylenol) 650 mg Q4H PRN ORAL fever 02/03/20 13:00 03/04/20 12:59 02/06/20 21:36 Albuterol Sulfate (Proventil) 2.5 mg Q4H PRN HHN Shortness of Breath 02/06/20 09:10 02/11/20 09:09 Aspirin (ASA) 81 mg DAILY ORAL 02/04/20 09:00 03/20/20 08:59 02/08/20 08:09 Atorvastatin Calcium (Lipitor) 20 mg BEDTIME ORAL 02/03/20 21:00 05/03/20 20:59 02/07/20 21:44 Diltiazem HCl (Cardizem) 30 mg EVERY 8 HOURS ORAL 02/06/20 22:00 03/07/20 21:59 02/08/20 05:44 Docusate Sodium (Colace) 100 mg THREE TIMES A DAY NG 02/06/20 18:00 03/07/20 17:59 02/08/20 08:09 Donepezil HCl (Aricept) 20 mg DAILY ORAL 02/04/20 09:00 03/05/20 08:59 02/08/20 08:09 Heparin Sodium (Porcine) (Heparin 5000 units/ml) 5,000 units EVERY 12 HOURS SUBQ 02/03/20 21:00 03/19/20 20:59 02/08/20 08:10 Hydralazine HCl (Apresoline) 25 mg Q4H PRN ORAL For blood pressure over 160 sy 02/03/20 11:00 05/03/20 10:59 Memantine (Namenda) 10 mg DAILY ORAL 02/05/20 09:00 03/06/20 08:59 02/08/20 08:06 Nitroglycerin (Ntg) 0.4 mg Q5M PRN SL Prn Chest Pain 02/03/20 13:30 03/04/20 13:29 Ondansetron HCl (Zofran) 4 mg Q6H PRN IVP Nausea & Vomiting 02/03/20 13:30 03/04/20 13:29 Pantoprazole (Protonix) 40 mg EVERY 12 HOURS ORAL 02/03/20 11:00 03/04/20 10:59 02/08/20 08:06 Phosphorus (Phospha 250 Neutral) 250 mg THREE TIMES A DAY ORAL 02/04/20 18:00 03/05/20 17:59 02/08/20 08:08 Piperacillin Sod/ Tazobactam Sod 3.375 gm/Sodium Chloride 110 ml @ 27.5 mls/hr EVERY 8 HOURS IVPB 02/06/20 14:00 02/11/20 13:59 02/08/20 05:30 Polyethylene Glycol (Miralax) 17 gm DAILYPRN PRN ORAL Constipation 02/03/20 13:30 03/04/20 13:29 Potassium Chloride (K-Dur) 20 meq TWICE A DAY ORAL 02/08/20 09:15 05/08/20 09:14 02/08/20 09:50 Promethazine HCl/ Codeine (Phenergan with Codeine) 5 ml Q4H PRN ORAL For Cough 02/03/20 13:30 03/04/20 13:29 Temazepam (Restoril) 15 mg HSPRN PRN ORAL Insomnia 02/03/20 21:00 02/10/20 20:59 Vancomycin HCl (Vanco rx to dose) 1 ea DAILY PRN MISC Per rx protocol 02/03/20 12:45 03/04/20 12:44 Vancomycin HCl 750 mg/Dextrose 275 ml @ 183.333 mls/hr Q12HR IVPB 02/08/20 09:00 02/13/20 08:59 02/08/20 09:53 Assessment/Plan Problems: (1) Nosocomial pneumonia (2) Suspected 2019-nCoV infection (3) At high risk for aspiration (4) Febrile illness, acute (5) Alzheimer's dementia (6) History of pacemaker (7) Severe protein-calorie malnutrition Assessment/Plan cxr worsening Covid negative times one. on NGT feeding afebrile respiratory treatment check sputum Urine has GNB broad spectrum abx swallow study noted, airborne isolation for now dvt prophylaxis Jefry Schwarz MD February 08, 2020 11:57
--- NOTE | 2020-02-08 11:57 | Infectious Diseases Prog Note ---
Assessment/Plan Assessment/Plan Assessment: Severe Sepsis Acute hypoxic respiratory failure- on simple mask 15L- high suspicion for COVID19- 1st sample neg Pneumonia -02/05 sp cx GNR CXR: New/worsening patchy opacities in the right upper lung. No significant change in the right lower lung opacities or the subsegmental atelectasis versus infiltrate in the left lung base. -CXR Right basilar infiltrate. -02/03 SARS-COV2 PCR neg UTI -u/a wbc tnct, nit +, leuk +3; ucx >100k E.coli (I to amp, otherwise S) -BCx NTD Fever ( up to 104.8 upon admission);improving Leukocytosis; improving Thrombocytopenia, SP BRIANA, SP Lactic acidosis, SP hx of recent UTI (~2 weeks [employer]CESSION[employer]) Alzheimer's Dementia s/p PPM CAD s/p CABG dysphagia s/p GT (now removed) [place] resident ([facility]) - no reported COVID patients in this facility as of 02/03/20 DNR/DNI Plan: -Dc empiric IV Vancomycin #6 -Continue empiric Zosyn #3 (abx d #6) - pending Cx -02/05 SP Cefepime #3 -02/02 SP Flagyl x1 -f/u cx -Monitor CBC/CMP, temperatures -COVID 19 isolation and testing; await 2nd test -aspiration precautions Thank you for consulting [facility]. Will continue to follow along with you. Discussed with RN. Subjective Allergies: Coded Allergies: No Known Allergies (Unverified , 02/03/20) Subjective afebrile in 36hrs on simple mask 12L leukocytosis overall improved Objective Vital Signs Last 24 Hour Vital Signs Date Time Temp Pulse Resp B/P (MAP) Pulse Ox O2 Delivery O2 Flow Rate FiO2 02/08/20 09:00 Simple Mask 12.0 02/08/20 08:00 72 02/08/20 08:00 98.2 72 20 110/88 (95) 97 02/08/20 05:44 76 141/67 02/08/20 04:00 97.3 80 20 134/74 (94) 98 02/08/20 04:00 87 02/08/20 00:00 73 02/08/20 00:00 97.2 75 21 121/55 (77) 98 02/07/20 21:49 79 128/62 02/07/20 21:00 Simple Mask 12.0 02/07/20 20:00 75 02/07/20 20:00 98.4 79 20 124/57 (79) 99 02/07/20 16:00 97.5 74 20 121/62 (81) 96 02/07/20 16:00 74 02/07/20 13:55 78 135/80 02/07/20 12:00 78 02/07/20 12:00 97.4 86 20 135/80 (98) 95 Height (Feet): 5 Height (Inches): 6.00 Weight (Pounds): 115 Objective not examined to limit COVID19 exposure Microbiology Date/Time Source Procedure Growth Status 02/06/20 10:48 Sputum Induced Gram Stain - Final Resulted 02/06/20 10:48 Sputum Culture - Preliminary Gram Negative Bacillus 1 Resulted Laboratory Tests Test 02/08/20 06:45 02/08/20 08:10 White Blood Count 12.2 K/UL (4.8-10.8) H Red Blood Count 3.60 M/UL (4.70-6.10) L Hemoglobin 11.5 G/DL (14.2-18.0) L Hematocrit 32.5 % (42.0-52.0) L Mean Corpuscular Volume 90 FL (80-99) Mean Corpuscular Hemoglobin 32.0 PG (27.0-31.0) H Mean Corpuscular Hemoglobin Concent 35.5 G/DL (32.0-36.0) Red Cell Distribution Width 11.3 % (11.6-14.8) L Platelet Count 157 K/UL (150-450) Mean Platelet Volume 7.8 FL (6.5-10.1) Neutrophils (%) (Auto) % (45.0-75.0) Lymphocytes (%) (Auto) % (20.0-45.0) Monocytes (%) (Auto) % (1.0-10.0) Eosinophils (%) (Auto) % (0.0-3.0) Basophils (%) (Auto) % (0.0-2.0) Differential Total Cells Counted 100 Neutrophils % (Manual) 89 % (45-75) H Lymphocytes % (Manual) 7 % (20-45) L Monocytes % (Manual) 4 % (1-10) Eosinophils % (Manual) 0 % (0-3) Basophils % (Manual) 0 % (0-2) Band Neutrophils 0 % (0-8) Platelet Estimate Adequate Platelet Morphology Normal Hypochromasia 1+ Sodium Level 146 MMOL/L (136-145) H Potassium Level 3.3 MMOL/L (3.5-5.1) L Chloride Level 109 MMOL/L (98-107) H Carbon Dioxide Level 31 MMOL/L (21-32) Anion Gap 6 mmol/L (5-15) Blood Urea Nitrogen 20 mg/dL (7-18) H Creatinine 0.8 MG/DL (0.55-1.30) Estimat Glomerular Filtration Rate > 60 mL/min (>60) Glucose Level 188 MG/DL (74-106) H Calcium Level 8.0 MG/DL (8.5-10.1) L Vancomycin Level Trough 2.8 ug/mL (5.0-12.0) L Current Medications Medications (Trade) Dose Ordered Sig/Jodee Route PRN Reason Start Time Stop Time Status Last Admin Dose Admin Acetaminophen (Tylenol) 650 mg Q4H PRN ORAL fever 02/03/20 13:00 03/04/20 12:59 02/06/20 21:36 Albuterol Sulfate (Proventil) 2.5 mg Q4H PRN HHN Shortness of Breath 02/06/20 09:10 02/11/20 09:09 Aspirin (ASA) 81 mg DAILY ORAL 02/04/20 09:00 03/20/20 08:59 02/08/20 08:09 Atorvastatin Calcium (Lipitor) 20 mg BEDTIME ORAL 02/03/20 21:00 05/03/20 20:59 02/07/20 21:44 Diltiazem HCl (Cardizem) 30 mg EVERY 8 HOURS ORAL 02/06/20 22:00 03/07/20 21:59 02/08/20 05:44 Docusate Sodium (Colace) 100 mg THREE TIMES A DAY NG 02/06/20 18:00 03/07/20 17:59 02/08/20 08:09 Donepezil HCl (Aricept) 20 mg DAILY ORAL 02/04/20 09:00 03/05/20 08:59 02/08/20 08:09 Heparin Sodium (Porcine) (Heparin 5000 units/ml) 5,000 units EVERY 12 HOURS SUBQ 02/03/20 21:00 03/19/20 20:59 02/08/20 08:10 Hydralazine HCl (Apresoline) 25 mg Q4H PRN ORAL For blood pressure over 160 sy 02/03/20 11:00 05/03/20 10:59 Memantine (Namenda) 10 mg DAILY ORAL 02/05/20 09:00 03/06/20 08:59 02/08/20 08:06 Nitroglycerin (Ntg) 0.4 mg Q5M PRN SL Prn Chest Pain 02/03/20 13:30 03/04/20 13:29 Ondansetron HCl (Zofran) 4 mg Q6H PRN IVP Nausea & Vomiting 02/03/20 13:30 03/04/20 13:29 Pantoprazole (Protonix) 40 mg EVERY 12 HOURS ORAL 02/03/20 11:00 03/04/20 10:59 02/08/20 08:06 Phosphorus (Phospha 250 Neutral) 250 mg THREE TIMES A DAY ORAL 02/04/20 18:00 03/05/20 17:59 02/08/20 08:08 Piperacillin Sod/ Tazobactam Sod 3.375 gm/Sodium Chloride 110 ml @ 27.5 mls/hr EVERY 8 HOURS IVPB 02/06/20 14:00 02/11/20 13:59 02/08/20 05:30 Polyethylene Glycol (Miralax) 17 gm DAILYPRN PRN ORAL Constipation 02/03/20 13:30 03/04/20 13:29 Potassium Chloride (K-Dur) 20 meq TWICE A DAY ORAL 02/08/20 09:15 05/08/20 09:14 02/08/20 09:50 Promethazine HCl/ Codeine (Phenergan with Codeine) 5 ml Q4H PRN ORAL For Cough 02/03/20 13:30 03/04/20 13:29 Temazepam (Restoril) 15 mg HSPRN PRN ORAL Insomnia 02/03/20 21:00 02/10/20 20:59 Vancomycin HCl (Vanco rx to dose) 1 ea DAILY PRN MISC Per rx protocol 02/03/20 12:45 03/04/20 12:44 Vancomycin HCl 750 mg/Dextrose 275 ml @ 183.333 mls/hr Q12HR IVPB 02/08/20 09:00 02/13/20 08:59 02/08/20 09:53 Jocelyn Olson M.D. February 08, 2020 11:56
[2020-02-08 12:00] VITALS: BP 131/61
--- NOTE | 2020-02-08 12:50 | NUR ---
*-* INSURANCE *-* UPDATED CLINICALS HAVE BEEN FAXED TO: [facility] [phone] FAX [phone] [address] P: [phone]
--- NOTE | 2020-02-08 13:25 | Cardiology Progress Note ---
Assessment/Plan Assessment/Plan 1. Respiratory decompensation. 2. Probable sepsis. 3. Dementia. 4. Coronary artery disease, status post coronary bypass grafting. 5. Urinary tract infection. 6. Renal insufficiency. trop neg probnp in min increase covid #1 neg #2 pending labs noted no fever per rn not coughing n empiric abx there apparently not have been any pt with covid + at the snf the pat has been staying at tele sinus intermittent v pacing echo once 2nd covid excluded tele reviewed: intermittent v pacing a sensed Subjective Subjective Pt asleep, lying comfortably in bed. Pt w/ audible rhonchi w/ no s/s of respiratory distress. On simple mask. NG tube in place with Osmolite 1.5 running @ 45 ml/hr. F/C draining by gravity. Wrist soft restraints Objective Last 24 Hour Vital Signs Date Time Temp Pulse Resp B/P (MAP) Pulse Ox O2 Delivery O2 Flow Rate FiO2 02/08/20 13:21 69 131/61 02/08/20 09:00 Simple Mask 12.0 02/08/20 08:00 72 02/08/20 08:00 98.2 72 20 110/88 (95) 97 02/08/20 05:44 76 141/67 02/08/20 04:00 97.3 80 20 134/74 (94) 98 02/08/20 04:00 87 02/08/20 00:00 73 02/08/20 00:00 97.2 75 21 121/55 (77) 98 02/07/20 21:49 79 128/62 02/07/20 21:00 Simple Mask 12.0 02/07/20 20:00 75 02/07/20 20:00 98.4 79 20 124/57 (79) 99 02/07/20 16:00 97.5 74 20 121/62 (81) 96 02/07/20 16:00 74 02/07/20 13:55 78 135/80 Intake and Output 02/07/20 02/08/20 19:00 07:00 Intake Total 1161.714 ml Output Total 300 ml 550 ml Balance 861.714 ml -550 ml IV Total 666.714 ml Tube Feeding 495 ml Output Urine Total 300 ml 550 ml # Voids 1 # Bowel Movements 1 1 Laboratory Tests Test 02/08/20 06:45 02/08/20 08:10 White Blood Count 12.2 K/UL (4.8-10.8) H Red Blood Count 3.60 M/UL (4.70-6.10) L Hemoglobin 11.5 G/DL (14.2-18.0) L Hematocrit 32.5 % (42.0-52.0) L Mean Corpuscular Volume 90 FL (80-99) Mean Corpuscular Hemoglobin 32.0 PG (27.0-31.0) H Mean Corpuscular Hemoglobin Concent 35.5 G/DL (32.0-36.0) Red Cell Distribution Width 11.3 % (11.6-14.8) L Platelet Count 157 K/UL (150-450) Mean Platelet Volume 7.8 FL (6.5-10.1) Neutrophils (%) (Auto) % (45.0-75.0) Lymphocytes (%) (Auto) % (20.0-45.0) Monocytes (%) (Auto) % (1.0-10.0) Eosinophils (%) (Auto) % (0.0-3.0) Basophils (%) (Auto) % (0.0-2.0) Differential Total Cells Counted 100 Neutrophils % (Manual) 89 % (45-75) H Lymphocytes % (Manual) 7 % (20-45) L Monocytes % (Manual) 4 % (1-10) Eosinophils % (Manual) 0 % (0-3) Basophils % (Manual) 0 % (0-2) Band Neutrophils 0 % (0-8) Platelet Estimate Adequate Platelet Morphology Normal Hypochromasia 1+ Sodium Level 146 MMOL/L (136-145) H Potassium Level 3.3 MMOL/L (3.5-5.1) L Chloride Level 109 MMOL/L (98-107) H Carbon Dioxide Level 31 MMOL/L (21-32) Anion Gap 6 mmol/L (5-15) Blood Urea Nitrogen 20 mg/dL (7-18) H Creatinine 0.8 MG/DL (0.55-1.30) Estimat Glomerular Filtration Rate > 60 mL/min (>60) Glucose Level 188 MG/DL (74-106) H Calcium Level 8.0 MG/DL (8.5-10.1) L Vancomycin Level Trough 2.8 ug/mL (5.0-12.0) L Microbiology Date/Time Source Procedure Growth Status 02/06/20 10:48 Sputum Induced Gram Stain - Final Resulted 02/06/20 10:48 Sputum Culture - Preliminary Gram Negative Bacillus 1 Resulted Objective per pulm PA : General Appearance: mild acute distress HEENT: normocephalic, atraumatic, anicteric Respiratory: decreased breath sounds, rhonchi - right, Cardiovascular: normal rate Abdomen: soft, non tender, non distended Extremities: no edema Dio Calzada MD February 08, 2020 13:25
--- NOTE | 2020-02-08 13:29 | Cardiology Progress Note ---
Assessment/Plan Assessment/Plan 1. Respiratory decompensation. 2. Probable sepsis. 3. Dementia. 4. Coronary artery disease, status post coronary bypass grafting. 5. Urinary tract infection. 6. Renal insufficiency. trop neg probnp in min increase covid #1 neg #2 pending no fever per rn not coughing n empiric abx adjsuted per ID nwo off vanco there apparently not have been any pt with covid + at the snf the pat has been staying at tele sinus intermittent v pacing echo once 2nd covid excluded tele reviewed: intermittent v pacing a sensed uncahnged cxr today new ngtube in good place increased right infiltrate per radiologist Subjective ROS Limited/Unobtainable: Yes Subjective no vomittign still confused adn comabitve in restriant no coughing , toleratign diet per rn Objective Last 24 Hour Vital Signs Date Time Temp Pulse Resp B/P (MAP) Pulse Ox O2 Delivery O2 Flow Rate FiO2 02/08/20 13:21 69 131/61 02/08/20 09:00 Simple Mask 12.0 02/08/20 08:00 72 02/08/20 08:00 98.2 72 20 110/88 (95) 97 02/08/20 05:44 76 141/67 02/08/20 04:00 97.3 80 20 134/74 (94) 98 02/08/20 04:00 87 02/08/20 00:00 73 02/08/20 00:00 97.2 75 21 121/55 (77) 98 02/07/20 21:49 79 128/62 02/07/20 21:00 Simple Mask 12.0 02/07/20 20:00 75 02/07/20 20:00 98.4 79 20 124/57 (79) 99 02/07/20 16:00 97.5 74 20 121/62 (81) 96 02/07/20 16:00 74 02/07/20 13:55 78 135/80 General Appearance: no apparent distress Intake and Output 02/07/20 02/08/20 19:00 07:00 Intake Total 1161.714 ml Output Total 300 ml 550 ml Balance 861.714 ml -550 ml IV Total 666.714 ml Tube Feeding 495 ml Output Urine Total 300 ml 550 ml # Voids 1 # Bowel Movements 1 1 Laboratory Tests Test 02/08/20 06:45 02/08/20 08:10 White Blood Count 12.2 K/UL (4.8-10.8) H Red Blood Count 3.60 M/UL (4.70-6.10) L Hemoglobin 11.5 G/DL (14.2-18.0) L Hematocrit 32.5 % (42.0-52.0) L Mean Corpuscular Volume 90 FL (80-99) Mean Corpuscular Hemoglobin 32.0 PG (27.0-31.0) H Mean Corpuscular Hemoglobin Concent 35.5 G/DL (32.0-36.0) Red Cell Distribution Width 11.3 % (11.6-14.8) L Platelet Count 157 K/UL (150-450) Mean Platelet Volume 7.8 FL (6.5-10.1) Neutrophils (%) (Auto) % (45.0-75.0) Lymphocytes (%) (Auto) % (20.0-45.0) Monocytes (%) (Auto) % (1.0-10.0) Eosinophils (%) (Auto) % (0.0-3.0) Basophils (%) (Auto) % (0.0-2.0) Differential Total Cells Counted 100 Neutrophils % (Manual) 89 % (45-75) H Lymphocytes % (Manual) 7 % (20-45) L Monocytes % (Manual) 4 % (1-10) Eosinophils % (Manual) 0 % (0-3) Basophils % (Manual) 0 % (0-2) Band Neutrophils 0 % (0-8) Platelet Estimate Adequate Platelet Morphology Normal Hypochromasia 1+ Sodium Level 146 MMOL/L (136-145) H Potassium Level 3.3 MMOL/L (3.5-5.1) L Chloride Level 109 MMOL/L (98-107) H Carbon Dioxide Level 31 MMOL/L (21-32) Anion Gap 6 mmol/L (5-15) Blood Urea Nitrogen 20 mg/dL (7-18) H Creatinine 0.8 MG/DL (0.55-1.30) Estimat Glomerular Filtration Rate > 60 mL/min (>60) Glucose Level 188 MG/DL (74-106) H Calcium Level 8.0 MG/DL (8.5-10.1) L Vancomycin Level Trough 2.8 ug/mL (5.0-12.0) L Microbiology Date/Time Source Procedure Growth Status 02/06/20 10:48 Sputum Induced Gram Stain - Final Resulted 02/06/20 10:48 Sputum Culture - Preliminary Gram Negative Bacillus 1 Resulted Objective per pulm PA : General Appearance: mild acute distress HEENT: normocephalic, atraumatic, anicteric Respiratory: decreased breath sounds, rhonchi - right, Cardiovascular: normal rate Abdomen: soft, non tender, non distended Extremities: no edema Dio Calzada MD February 08, 2020 13:29
--- NOTE | 2020-02-08 13:34 | Nephrology Progress Note ---
Assessment/Plan Problem List: (1) Dehydration (2) Suspected 2019-nCoV infection (3) Urinary tract infection (4) Pacemaker Assessment Renal failure most likely dehydration, may have underlying chronic kidney disease Suspected 2019-nCoV infection Febrile illness, acute Dementia Pneumonia Urinary tract infection Status post pacemaker Plan IV potassium and phosphate as needed Stable from renal standpoint of view Previously: Slow IV hydration, watch for CHF symptoms Monitor renal parameters Urine studies Antibiotics per ID Avoid nephrotoxic's Per orders Subjective ROS Limited/Unobtainable: No Constitutional: Reports: malaise, weakness Objective Objective Last 24 Hour Vital Signs Date Time Temp Pulse Resp B/P (MAP) Pulse Ox O2 Delivery O2 Flow Rate FiO2 02/08/20 13:21 69 131/61 02/08/20 09:00 Simple Mask 12.0 02/08/20 08:00 72 02/08/20 08:00 98.2 72 20 110/88 (95) 97 02/08/20 05:44 76 141/67 02/08/20 04:00 97.3 80 20 134/74 (94) 98 02/08/20 04:00 87 02/08/20 00:00 73 02/08/20 00:00 97.2 75 21 121/55 (77) 98 02/07/20 21:49 79 128/62 02/07/20 21:00 Simple Mask 12.0 02/07/20 20:00 75 02/07/20 20:00 98.4 79 20 124/57 (79) 99 02/07/20 16:00 97.5 74 20 121/62 (81) 96 02/07/20 16:00 74 02/07/20 13:55 78 135/80 Intake and Output 02/07/20 02/08/20 19:00 07:00 Intake Total 1161.714 ml Output Total 300 ml 550 ml Balance 861.714 ml -550 ml IV Total 666.714 ml Tube Feeding 495 ml Output Urine Total 300 ml 550 ml # Voids 1 # Bowel Movements 1 1 Laboratory Tests 02/08/20 06:45: White Blood Count 12.2H, Red Blood Count 3.60L, Hemoglobin 11.5L, Hematocrit 32.5L, Mean Corpuscular Volume 90, Mean Corpuscular Hemoglobin 32.0H, Mean Corpuscular Hemoglobin Concent 35.5, Red Cell Distribution Width 11.3L, Platelet Count 157, Mean Platelet Volume 7.8, Neutrophils (%) (Auto) , Lymphocytes (%) (Auto) , Monocytes (%) (Auto) , Eosinophils (%) (Auto) , Basophils (%) (Auto) , Differential Total Cells Counted 100, Neutrophils % ( Manual) 89H, Lymphocytes % (Manual) 7L, Monocytes % (Manual) 4, Eosinophils % ( Manual) 0, Basophils % (Manual) 0, Band Neutrophils 0, Platelet Estimate Adequate, Platelet Morphology Normal, Hypochromasia 1+, Sodium Level 146H, Potassium Level 3.3L, Chloride Level 109H, Carbon Dioxide Level 31, Anion Gap 6 , Blood Urea Nitrogen 20H, Creatinine 0.8, Estimat Glomerular Filtration Rate > 60, Glucose Level 188H, Calcium Level 8.0L 02/08/20 08:10: Vancomycin Level Trough 2.8L Height (Feet): 5 Height (Inches): 6.00 Weight (Pounds): 115 General Appearance: no apparent distress, lethargic, confused Cardiovascular: normal rate, arrhythmia Respiratory/Chest: decreased breath sounds Abdomen: soft Objective No change Cooper Chamorro MD February 08, 2020 13:34
[2020-02-08 15:50] VITALS: BP 124/56
--- NOTE | 2020-02-08 16:13 | Internal Med Progress Note ---
Subjective Date of Service: February 08, 2020 Physician Name Ramiro Harry Attending Physician Roby Grace MD Current Medications Medications (Trade) Dose Ordered Sig/Jodee Route PRN Reason Start Time Stop Time Status Last Admin Dose Admin Acetaminophen (Tylenol) 650 mg Q4H PRN ORAL fever 02/03/20 13:00 03/04/20 12:59 02/06/20 21:36 Albuterol Sulfate (Proventil) 2.5 mg Q4H PRN HHN Shortness of Breath 02/06/20 09:10 02/11/20 09:09 Aspirin (ASA) 81 mg DAILY ORAL 02/04/20 09:00 03/20/20 08:59 02/08/20 08:09 Atorvastatin Calcium (Lipitor) 20 mg BEDTIME ORAL 02/03/20 21:00 05/03/20 20:59 02/07/20 21:44 Diltiazem HCl (Cardizem) 30 mg EVERY 8 HOURS ORAL 02/06/20 22:00 03/07/20 21:59 02/08/20 13:21 Docusate Sodium (Colace) 100 mg THREE TIMES A DAY NG 02/06/20 18:00 03/07/20 17:59 02/08/20 13:21 Donepezil HCl (Aricept) 20 mg DAILY ORAL 02/04/20 09:00 03/05/20 08:59 02/08/20 08:09 Heparin Sodium (Porcine) (Heparin 5000 units/ml) 5,000 units EVERY 12 HOURS SUBQ 02/03/20 21:00 03/19/20 20:59 02/08/20 08:10 Hydralazine HCl (Apresoline) 25 mg Q4H PRN ORAL For blood pressure over 160 sy 02/03/20 11:00 05/03/20 10:59 Memantine (Namenda) 10 mg DAILY ORAL 02/05/20 09:00 03/06/20 08:59 02/08/20 08:06 Nitroglycerin (Ntg) 0.4 mg Q5M PRN SL Prn Chest Pain 02/03/20 13:30 03/04/20 13:29 Ondansetron HCl (Zofran) 4 mg Q6H PRN IVP Nausea & Vomiting 02/03/20 13:30 03/04/20 13:29 Pantoprazole (Protonix) 40 mg EVERY 12 HOURS ORAL 02/03/20 11:00 03/04/20 10:59 02/08/20 08:06 Phosphorus (Phospha 250 Neutral) 250 mg THREE TIMES A DAY ORAL 02/04/20 18:00 03/05/20 17:59 02/08/20 13:21 Piperacillin Sod/ Tazobactam Sod 3.375 gm/Sodium Chloride 110 ml @ 27.5 mls/hr EVERY 8 HOURS IVPB 02/06/20 14:00 02/11/20 13:59 02/08/20 13:22 Polyethylene Glycol (Miralax) 17 gm DAILYPRN PRN ORAL Constipation 02/03/20 13:30 03/04/20 13:29 Potassium Chloride (K-Dur) 20 meq TWICE A DAY ORAL 02/08/20 09:15 05/08/20 09:14 02/08/20 09:50 Promethazine HCl/ Codeine (Phenergan with Codeine) 5 ml Q4H PRN ORAL For Cough 02/03/20 13:30 03/04/20 13:29 Temazepam (Restoril) 15 mg HSPRN PRN ORAL Insomnia 02/03/20 21:00 02/10/20 20:59 Allergies: Coded Allergies: No Known Allergies (Unverified , 02/03/20) ROS Limited/Unobtainable: Yes Subjective 84 YO M admitted with fever and shortness of breath. Now sepsis, UTI and pneumonia. Cover for Int Abhay-Dr Grace Objective Last Vital Signs Date Time Temp Pulse Resp B/P (MAP) Pulse Ox O2 Delivery O2 Flow Rate FiO2 02/08/20 15:50 97.5 71 20 124/56 (78) 98 02/08/20 09:00 Simple Mask 12.0 02/04/20 03:14 100 Laboratory Tests Test 02/08/20 06:45 02/08/20 08:10 White Blood Count 12.2 K/UL (4.8-10.8) H Red Blood Count 3.60 M/UL (4.70-6.10) L Hemoglobin 11.5 G/DL (14.2-18.0) L Hematocrit 32.5 % (42.0-52.0) L Mean Corpuscular Volume 90 FL (80-99) Mean Corpuscular Hemoglobin 32.0 PG (27.0-31.0) H Mean Corpuscular Hemoglobin Concent 35.5 G/DL (32.0-36.0) Red Cell Distribution Width 11.3 % (11.6-14.8) L Platelet Count 157 K/UL (150-450) Mean Platelet Volume 7.8 FL (6.5-10.1) Neutrophils (%) (Auto) % (45.0-75.0) Lymphocytes (%) (Auto) % (20.0-45.0) Monocytes (%) (Auto) % (1.0-10.0) Eosinophils (%) (Auto) % (0.0-3.0) Basophils (%) (Auto) % (0.0-2.0) Differential Total Cells Counted 100 Neutrophils % (Manual) 89 % (45-75) H Lymphocytes % (Manual) 7 % (20-45) L Monocytes % (Manual) 4 % (1-10) Eosinophils % (Manual) 0 % (0-3) Basophils % (Manual) 0 % (0-2) Band Neutrophils 0 % (0-8) Platelet Estimate Adequate Platelet Morphology Normal Hypochromasia 1+ Sodium Level 146 MMOL/L (136-145) H Potassium Level 3.3 MMOL/L (3.5-5.1) L Chloride Level 109 MMOL/L (98-107) H Carbon Dioxide Level 31 MMOL/L (21-32) Anion Gap 6 mmol/L (5-15) Blood Urea Nitrogen 20 mg/dL (7-18) H Creatinine 0.8 MG/DL (0.55-1.30) Estimat Glomerular Filtration Rate > 60 mL/min (>60) Glucose Level 188 MG/DL (74-106) H Calcium Level 8.0 MG/DL (8.5-10.1) L Vancomycin Level Trough 2.8 ug/mL (5.0-12.0) L Microbiology Date/Time Source Procedure Growth Status 02/06/20 19:35 Nasopharynx Coronavirus COVID-19 PCR ([facility]) - Final Complete 02/06/20 10:48 Sputum Induced Gram Stain - Final Resulted 02/06/20 10:48 Sputum Culture - Preliminary Gram Negative Bacillus 1 Resulted Intake and Output 02/07/20 02/08/20 19:00 07:00 Intake Total 1161.714 ml Output Total 300 ml 550 ml Balance 861.714 ml -550 ml IV Total 666.714 ml Tube Feeding 495 ml Output Urine Total 300 ml 550 ml # Voids 1 # Bowel Movements 1 1 Objective Objective General: No acute distress, less responsive, On Venti Mask HEENT: NCAT, sclera anicteric, PERRL, EOMI. Neck: Supple, no significant jugular venous distention, Lungs: Fair inspiratory effort, decreased air at the bases, no Wheeze or Rales. Heart: Regular rate and rhythm, normal S1/S2, no murmurs, + PPM. Abdomen: soft, nontender, nondistended. Normoactive bowel sounds. / Rectal: Refused and deferred. Extremities: No Cyanosis , clubbing or edema. Neuro: A&O x 2, Able to move all extremities slowly. Skin: warm, no rash, Assessment/Plan Assessment/Plan Assessment/Plan Assessment/Plan Assessment/Plan Severe Sepsis Acute hypoxic respiratory failure- on simple mask 15L- [id number] X2 Pneumonia Acute E. 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 -Passed the swallow study will start on diet. -DVT prophylaxis: Heparin subcu. -1ST COVID-19 test negative -2D Echo Discussed with patient insurance, Dr Juan [phone] out of network- transfer to in-network facility when bed available. Ramiro Harry MD February 08, 2020 16:13
--- NOTE | 2020-02-08 19:39 | NUR ---
HAND-OFF: Report given to LUIS Alberto. Patient is in stable condition.
--- NOTE | 2020-02-08 19:51 | NUR ---
NURSE NOTES: Received report from LUIS Goode. Patient is asleep lying semi-jones's; resting comfortably. No signs of acute distress or pain noted at this time. On 12L simple mask saturating at 92%. AOx1; unable to make needs known. Primarily Macedonian speaking. Checked IV site; patent and flushed. No erythema, bleeding, or infiltration noted. Left nare NG tube in place. Osmolite 1.5 running at 45 mls/hr. Hill catheter draining well to gravity. Bed at lowest position, brakes on, siderails up x3. Call light within reach. Will continue to monitor.
[2020-02-08 20:00] VITALS: BP 135/79
[2020-02-08] MEDS: Atorvastatin 20mg tab ORAL SCH (22:10)
--- NOTE | 2020-02-08 23:03 | NUR ---
NURSE NOTES: Called Dr. Schwarz to inform him that patient is becoming increasingly congested and requiring more frequent suctioning on 12L simple mask with NG tube feeding running at 45 mls/hr. Awaiting callback for any further orders.
--- NOTE | 2020-02-08 23:35 | NUR ---
NURSE NOTES: Received orders from Dr. Schwarz to discontinue tube feeding and for Lasix 20 mg IV ONCE. Noted and carried out.
[2020-02-09] VITALS: BP 131/84
[2020-02-09 04:00] VITALS: BP 120/56
[2020-02-09] MEDS: Piperacillin/Tazobactam 3.375 GM in NS 110 ML IVPB SCH ×2 (06:30→13:49)
[2020-02-09] MEDS: dilTIAZem HCl 30mg tab ORAL SCH ×2 (06:30→14:04)
[2020-02-09 07:02] LABS: HEMATOCRIT 37.9 % (42.0-52.0); HEMOGLOBIN 13.1 G/DL (14.2-18.0); MEAN CORPUSCULAR VOLUME 91 FL (80-99); PLATELET COUNT 213 K/UL (150-450); RED BLOOD COUNT 4.15 M/UL (4.70-6.10); RED CELL DISTRIBUTION WIDTH 11.6 % (11.6-14.8)
[2020-02-09 07:14] LABS: WHITE BLOOD COUNT 22.6 K/UL (4.8-10.8)
--- NOTE | 2020-02-09 07:24 | NUR ---
HAND-OFF: Report given to LUIS Goode. Patient is asleep lying semi-jones's; resting comfortably. On 15L non-rebreather mask saturating at 100%. Hill catheter draining well to gravity. In stable condition.
--- NOTE | 2020-02-09 07:30 | NUR ---
NURSE NOTES: Received patient from Arelis SMITH. Patient is in bed resting, appeared lethargic, no s/s of pain noted at this time. No s/s of respiratory or acute distress noted. Patient is on non-rebreather mask, saturating 100%. IV's are intact and patent, running Zosyn in the LAC at this time. Bed is in lowest position, brakes engaged for safety. Call light is within easy reach. Will continue with the plan of care.
[2020-02-09 07:38] LABS: ALANINE AMINOTRANSFERASE 24 U/L (12-78); ALBUMIN/GLOBULIN RATIO 0.5 (1.0-2.7); ALKALINE PHOSPHATASE 67 U/L (46-116); ANION GAP 8 mmol/L (5-15); ASPARTATE AMINO TRANSFERASE 23 U/L (15-37); BILIRUBIN,TOTAL 0.6 MG/DL (0.2-1.0); BLOOD UREA NITROGEN 29 mg/dL (7-18); CALCIUM 8.2 MG/DL (8.5-10.1); CARBON DIOXIDE 30 MMOL/L (21-32); CHLORIDE 109 MMOL/L (98-107); CREATININE 1.4 MG/DL (0.55-1.30); PHOSPHORUS 2.9 MG/DL (2.5-4.9); POTASSIUM 4.1 MMOL/L (3.5-5.1); SODIUM 147 MMOL/L (136-145)
--- NOTE | 2020-02-09 07:40 | NUR ---
NURSE NOTES: Lab called to report critical value - WBC of 22.6. Dr. Grace and Dr. Schwarz were notified. No new order. Will continue to monitor patient.
--- NOTE | 2020-02-09 07:58 | NUR ---
CASE MANAGEMENT:REVIEW 02/09/20 SI: SEPSIS. PNA. E COLI UTI COVID NOT DETECTED X2 99.2 107 35 131/84 90-92% ON 12L MASK WBC+22.6 NA+147 BUN+29 CR+1.4 IS: IV ZOSYN Q8HRS K-DUR PO BID CARDIZEM PO Q8HRS NAMENDA PO QD PHOSPHORUS PO TID ARICEPT PO QD ASA PO QD HEPARIN SQ Q12 PROTONIX PO Q12 : TELEMETRY STATUS DCP: FROM [facility] PLAN: NOT STABLE FOR DISCHARGE D/T RESPIRATORY STATUS LOW GRADE TEMP LAST NIGHT 99.6......MONITOR TEMPS
[2020-02-09 08:00] VITALS: BP 123/65
[2020-02-09] MEDS: Donepezil 10mg tab ORAL SCH (08:53)
[2020-02-09] MEDS: Memantine 10mg tab ORAL SCH (08:53)
[2020-02-09] MEDS: Aspirin Baby 81mg ORAL SCH (08:53)
[2020-02-09] MEDS: Docusate 100mg/10ml Liq NG SCH ×2 (08:53→14:05)
[2020-02-09] MEDS: Heparin 5000 units/ml inj SUBQ SCH (08:54)
--- NOTE | 2020-02-09 09:28 | NUR ---
NURSE NOTES: Notified Dr. Olson of the second covid-19 result being negative. MD still would like to keep the isolation precaution on.
--- NOTE | 2020-02-09 10:25 | NUR ---
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 - Start @25ml/hr for 6 hrs, advance as tolerated 10ml/hr q4-6 hrs to goal. - Flush per MD, HOB over 30 degrees ----- ADDITIONAL RECOMMENDATIONS: 1) For Glycemic control, rec GLUCERNA as HPN -> now on NGT feeds 2) Recalibrate bedscale for accurate CBW- 119lbs per SNF 3) Monitor lytes / hydration status w/ NPO REC D5 WHILE NPO/ TF HELD 4) When able to resume TF rec to add MARTINEZ in 4oz H2O via NGT BID for wound care; add vit C 250mg qd.
--- NOTE | 2020-02-09 10:41 | Internal Med Progress Note ---
Subjective Date of Service: February 09, 2020 Physician Name Ramiro Harry Attending Physician Roby Grace MD Current Medications Medications (Trade) Dose Ordered Sig/Jodee Route PRN Reason Start Time Stop Time Status Last Admin Dose Admin Acetaminophen (Tylenol) 650 mg Q4H PRN ORAL fever 02/03/20 13:00 03/04/20 12:59 02/06/20 21:36 Albuterol Sulfate (Proventil) 2.5 mg Q4H PRN HHN Shortness of Breath 02/06/20 09:10 02/11/20 09:09 Aspirin (ASA) 81 mg DAILY ORAL 02/04/20 09:00 03/20/20 08:59 02/09/20 08:53 Atorvastatin Calcium (Lipitor) 20 mg BEDTIME ORAL 02/03/20 21:00 05/03/20 20:59 02/08/20 22:10 Diltiazem HCl (Cardizem) 30 mg EVERY 8 HOURS ORAL 02/06/20 22:00 03/07/20 21:59 02/09/20 06:30 Docusate Sodium (Colace) 100 mg THREE TIMES A DAY NG 02/06/20 18:00 03/07/20 17:59 02/09/20 08:53 Donepezil HCl (Aricept) 20 mg DAILY ORAL 02/04/20 09:00 03/05/20 08:59 02/09/20 08:53 Heparin Sodium (Porcine) (Heparin 5000 units/ml) 5,000 units EVERY 12 HOURS SUBQ 02/03/20 21:00 03/19/20 20:59 02/09/20 08:54 Hydralazine HCl (Apresoline) 25 mg Q4H PRN ORAL For blood pressure over 160 sy 02/03/20 11:00 05/03/20 10:59 Memantine (Namenda) 10 mg DAILY ORAL 02/05/20 09:00 03/06/20 08:59 02/09/20 08:53 Nitroglycerin (Ntg) 0.4 mg Q5M PRN SL Prn Chest Pain 02/03/20 13:30 03/04/20 13:29 Ondansetron HCl (Zofran) 4 mg Q6H PRN IVP Nausea & Vomiting 02/03/20 13:30 03/04/20 13:29 Pantoprazole (Protonix) 40 mg EVERY 12 HOURS ORAL 02/03/20 11:00 03/04/20 10:59 02/09/20 08:53 Piperacillin Sod/ Tazobactam Sod 3.375 gm/Sodium Chloride 110 ml @ 27.5 mls/hr EVERY 8 HOURS IVPB 02/06/20 14:00 02/11/20 13:59 02/09/20 06:30 Polyethylene Glycol (Miralax) 17 gm DAILYPRN PRN ORAL Constipation 02/03/20 13:30 03/04/20 13:29 Promethazine HCl/ Codeine (Phenergan with Codeine) 5 ml Q4H PRN ORAL For Cough 02/03/20 13:30 03/04/20 13:29 Temazepam (Restoril) 15 mg HSPRN PRN ORAL Insomnia 02/03/20 21:00 02/10/20 20:59 Allergies: Coded Allergies: No Known Allergies (Unverified , 02/03/20) ROS Limited/Unobtainable: Yes Subjective 84 YO M admitted with fever and shortness of breath. Now sepsis, UTI and pneumonia. Cover for Int Med-Dr Grace. Await transfer to contracted facility Objective Last Vital Signs Date Time Temp Pulse Resp B/P (MAP) Pulse Ox O2 Delivery O2 Flow Rate FiO2 02/09/20 08:11 Simple Mask 12.0 02/09/20 08:00 98.8 92 20 123/65 (84) 99 02/04/20 03:14 100 Laboratory Tests Test 02/09/20 05:26 02/09/20 09:10 White Blood Count 22.6 K/UL (4.8-10.8) #*H Red Blood Count 4.15 M/UL (4.70-6.10) L Hemoglobin 13.1 G/DL (14.2-18.0) L Hematocrit 37.9 % (42.0-52.0) L Mean Corpuscular Volume 91 FL (80-99) Mean Corpuscular Hemoglobin 31.7 PG (27.0-31.0) H Mean Corpuscular Hemoglobin Concent 34.6 G/DL (32.0-36.0) Red Cell Distribution Width 11.6 % (11.6-14.8) Platelet Count 213 K/UL (150-450) Mean Platelet Volume 7.2 FL (6.5-10.1) Neutrophils (%) (Auto) % (45.0-75.0) Lymphocytes (%) (Auto) % (20.0-45.0) Monocytes (%) (Auto) % (1.0-10.0) Eosinophils (%) (Auto) % (0.0-3.0) Basophils (%) (Auto) % (0.0-2.0) Differential Total Cells Counted 100 Neutrophils % (Manual) 93 % (45-75) H Lymphocytes % (Manual) 5 % (20-45) L Monocytes % (Manual) 2 % (1-10) Eosinophils % (Manual) 0 % (0-3) Basophils % (Manual) 0 % (0-2) Band Neutrophils 0 % (0-8) Platelet Estimate Adequate Platelet Morphology Normal Red Blood Cell Morphology Normal Sodium Level 147 MMOL/L (136-145) H Potassium Level 4.1 MMOL/L (3.5-5.1) Chloride Level 109 MMOL/L (98-107) H Carbon Dioxide Level 30 MMOL/L (21-32) Anion Gap 8 mmol/L (5-15) Blood Urea Nitrogen 29 mg/dL (7-18) H Creatinine 1.4 MG/DL (0.55-1.30) #H Estimat Glomerular Filtration Rate 48.2 mL/min (>60) Glucose Level 172 MG/DL (74-106) H Calcium Level 8.2 MG/DL (8.5-10.1) L Phosphorus Level 2.9 MG/DL (2.5-4.9) Magnesium Level 2.0 MG/DL (1.8-2.4) Total Bilirubin 0.6 MG/DL (0.2-1.0) Aspartate Amino Transf (AST/SGOT) 23 U/L (15-37) Alanine Aminotransferase (ALT/SGPT) 24 U/L (12-78) Alkaline Phosphatase 67 U/L (46-116) C-Reactive Protein, Quantitative 18.2 mg/dL (0.00-0.90) H Total Protein 6.1 G/DL (6.4-8.2) L Albumin 2.0 G/DL (3.4-5.0) L Globulin 4.1 g/dL Albumin/Globulin Ratio 0.5 (1.0-2.7) L Arterial Blood pH 7.468 (7.350-7.450) Arterial Blood Partial Pressure CO2 41.9 mmHg (35.0-45.0) Arterial Blood Partial Pressure O2 221.9 mmHg (75.0-100.0) H Arterial Blood HCO3 29.7 mmol/L (22.0-26.0) H Arterial Blood Oxygen Saturation 98.8 % (95-100) Arterial Blood Base Excess 5.5 (-2-2) H Elias Test Positive Microbiology Date/Time Source Procedure Growth Status 02/06/20 19:35 Nasopharynx Coronavirus COVID-19 PCR ([facility]) - Final Complete 02/06/20 10:48 Sputum Induced Gram Stain - Final Complete 02/06/20 10:48 Sputum Culture - Final Acinetobacter Baumannii Complx Usual Respiratory Treri Complete Intake and Output 02/08/20 02/09/20 19:00 07:00 Intake Total 369 ml 300.5 ml Output Total 150 ml Balance 219 ml 300.5 ml Intake Oral 324 ml Free Water 60 ml IV Total 105.5 ml Tube Feeding 45 ml 135 ml Output Urine Total 150 ml # Voids 1 2 # Bowel Movements 1 2 Objective Objective General: No acute distress, less responsive, On Venti Mask HEENT: NCAT, sclera anicteric, PERRL, EOMI. Neck: Supple, no significant jugular venous distention, Lungs: Fair inspiratory effort, decreased air at the bases, no Wheeze or Rales. Heart: Regular rate and rhythm, normal S1/S2, no murmurs, + PPM. Abdomen: soft, nontender, nondistended. Normoactive bowel sounds. / Rectal: Refused and deferred. Extremities: No Cyanosis , clubbing or edema. Neuro: A&O x 2, Able to move all extremities slowly. Skin: warm, no rash, Assessment/Plan Assessment/Plan Assessment/Plan Assessment/Plan Assessment/Plan Severe Sepsis Acute hypoxic respiratory failure- on simple mask 15L- [id number]=ror X2 Pneumonia=Acenitobacter Acute E. 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 -Passed the swallow study will start on diet. -DVT prophylaxis: Heparin subcu. -1ST COVID-19 test negative -2D Echo Discussed with patient insurance, Dr Juan [phone] out of network- transfer to in-network facility - [facility]-when bed available. Discussed with case management Ramiro Harry MD February 09, 2020 10:41
--- NOTE | 2020-02-09 11:01 | NUR ---
TRANSFER UPDATE PATIENT IS OT OF NETWORK AND DOES OT BELONG AT [place] TO MD CONVERSATION HAS TAKEN PLACE WITH DR URBINA PER [facility] TRAWLER HAND, SAMANTHA, HE WILL WORK ON SECURING A BED AT [facility] NEGATIVE RESULTS FAXED TO SAMANTHA SINGH T: [phone] F: [phone]
[2020-02-09 12:00] VITALS: BP 109/52
--- NOTE | 2020-02-09 12:03 | Pulmonology Progress Note ---
Subjective ROS Limited/Unobtainable: Yes Constitutional: Reports: no symptoms HEENT: Repors: no symptoms Allergies: Coded Allergies: No Known Allergies (Unverified , 02/03/20) Objective Last 24 Hour Vital Signs Date Time Temp Pulse Resp B/P (MAP) Pulse Ox O2 Delivery O2 Flow Rate FiO2 02/09/20 08:11 Simple Mask 12.0 02/09/20 08:00 98.8 92 20 123/65 (84) 99 02/09/20 08:00 92 02/09/20 06:30 97 120/56 02/09/20 04:00 97 02/09/20 04:00 98.8 97 37 120/56 (77) 90 02/09/20 00:00 107 02/09/20 00:00 99.2 110 35 131/84 (100) 92 02/08/20 22:11 65 135/79 02/08/20 21:00 Simple Mask 12.0 02/08/20 20:00 100 02/08/20 20:00 99.6 102 30 135/79 (97) 92 02/08/20 16:00 65 02/08/20 15:50 97.5 71 20 124/56 (78) 98 02/08/20 13:21 69 131/61 Intake and Output 02/08/20 02/09/20 19:00 07:00 Intake Total 369 ml 300.5 ml Output Total 150 ml Balance 219 ml 300.5 ml Intake Oral 324 ml Free Water 60 ml IV Total 105.5 ml Tube Feeding 45 ml 135 ml Output Urine Total 150 ml # Voids 1 2 # Bowel Movements 1 2 General Appearance: cachetic, other - mild rep distress HEENT: normocephalic, atraumatic Respiratory: rhonchi - left, rhonchi - right Cardiovascular: normal peripheral pulses Abdomen: normal bowel sounds Genitourinary: normal external genitalia Extremities: no cyanosis, no clubbing, no edema Skin: no rash Neurologic: facility supervisor II-XII grossly normal, no motor/sensory deficits Lymphatic: no neck adenopathy Microbiology Date/Time Source Procedure Growth Status 02/06/20 19:35 Nasopharynx Coronavirus COVID-19 PCR ([facility]) - Final Complete Laboratory Tests 02/09/20 05:26: White Blood Count 22.6#*H, Red Blood Count 4.15L, Hemoglobin 13.1L, Hematocrit 37.9L, Mean Corpuscular Volume 91, Mean Corpuscular Hemoglobin 31.7H, Mean Corpuscular Hemoglobin Concent 34.6, Red Cell Distribution Width 11.6, Platelet Count 213, Mean Platelet Volume 7.2, Neutrophils (%) (Auto) , Lymphocytes (%) ( Auto) , Monocytes (%) (Auto) , Eosinophils (%) (Auto) , Basophils (%) (Auto) , Differential Total Cells Counted 100, Neutrophils % (Manual) 93H, Lymphocytes % (Manual) 5L, Monocytes % (Manual) 2, Eosinophils % (Manual) 0, Basophils % ( Manual) 0, Band Neutrophils 0, Platelet Estimate Adequate, Platelet Morphology Normal, Red Blood Cell Morphology Normal, Sodium Level 147H, Potassium Level 4.1 , Chloride Level 109H, Carbon Dioxide Level 30, Anion Gap 8, Blood Urea Nitrogen 29H, Creatinine 1.4#H, Estimat Glomerular Filtration Rate 48.2, Glucose Level 172H, Calcium Level 8.2L, Phosphorus Level 2.9, Magnesium Level 2.0, Total Bilirubin 0.6, Aspartate Amino Transf (AST/SGOT) 23, Alanine Aminotransferase (ALT/SGPT) 24, Alkaline Phosphatase 67, C-Reactive Protein, Quantitative 18.2H, Total Protein 6.1L, Albumin 2.0L, Globulin 4.1, Albumin/ Globulin Ratio 0.5L 02/09/20 09:10: Arterial Blood pH 7.468H, Arterial Blood Partial Pressure CO2 41.9, Arterial Blood Partial Pressure O2 221.9H, Arterial Blood HCO3 29.7H, Arterial Blood Oxygen Saturation 98.8, Arterial Blood Base Excess 5.5H, Elias Test Positive Current Medications Medications (Trade) Dose Ordered Sig/Jodee Route PRN Reason Start Time Stop Time Status Last Admin Dose Admin Acetaminophen (Tylenol) 650 mg Q4H PRN ORAL fever 02/03/20 13:00 03/04/20 12:59 02/06/20 21:36 Albuterol Sulfate (Proventil) 2.5 mg Q4H PRN HHN Shortness of Breath 02/06/20 09:10 02/11/20 09:09 Aspirin (ASA) 81 mg DAILY ORAL 02/04/20 09:00 03/20/20 08:59 02/09/20 08:53 Atorvastatin Calcium (Lipitor) 20 mg BEDTIME ORAL 02/03/20 21:00 05/03/20 20:59 02/08/20 22:10 Diltiazem HCl (Cardizem) 30 mg EVERY 8 HOURS ORAL 02/06/20 22:00 03/07/20 21:59 02/09/20 06:30 Docusate Sodium (Colace) 100 mg THREE TIMES A DAY NG 02/06/20 18:00 03/07/20 17:59 02/09/20 08:53 Donepezil HCl (Aricept) 20 mg DAILY ORAL 02/04/20 09:00 03/05/20 08:59 02/09/20 08:53 Heparin Sodium (Porcine) (Heparin 5000 units/ml) 5,000 units EVERY 12 HOURS SUBQ 02/03/20 21:00 03/19/20 20:59 02/09/20 08:54 Hydralazine HCl (Apresoline) 25 mg Q4H PRN ORAL For blood pressure over 160 sy 02/03/20 11:00 05/03/20 10:59 Memantine (Namenda) 10 mg DAILY ORAL 02/05/20 09:00 03/06/20 08:59 02/09/20 08:53 Nitroglycerin (Ntg) 0.4 mg Q5M PRN SL Prn Chest Pain 02/03/20 13:30 03/04/20 13:29 Ondansetron HCl (Zofran) 4 mg Q6H PRN IVP Nausea & Vomiting 02/03/20 13:30 03/04/20 13:29 Pantoprazole (Protonix) 40 mg EVERY 12 HOURS ORAL 02/03/20 11:00 03/04/20 10:59 02/09/20 08:53 Piperacillin Sod/ Tazobactam Sod 3.375 gm/Sodium Chloride 110 ml @ 27.5 mls/hr EVERY 8 HOURS IVPB 02/06/20 14:00 02/11/20 13:59 02/09/20 06:30 Polyethylene Glycol (Miralax) 17 gm DAILYPRN PRN ORAL Constipation 02/03/20 13:30 03/04/20 13:29 Promethazine HCl/ Codeine (Phenergan with Codeine) 5 ml Q4H PRN ORAL For Cough 02/03/20 13:30 03/04/20 13:29 Temazepam (Restoril) 15 mg HSPRN PRN ORAL Insomnia 02/03/20 21:00 02/10/20 20:59 Assessment/Plan Problems: (1) Nosocomial pneumonia (2) Suspected 2019-nCoV infection (3) At high risk for aspiration (4) Febrile illness, acute (5) Alzheimer's dementia (6) History of pacemaker (7) Severe protein-calorie malnutrition Assessment/Plan WBC higher \cxr worsening Covid negative times one. respiratory treatment check sputum Urine has GNB broad spectrum abx, repeat cultures swallow study noted, airborne isolation for now dvt prophylaxis Jefry Schwarz MD February 09, 2020 12:03
--- NOTE | 2020-02-09 12:08 | Nephrology Progress Note ---
Assessment/Plan Problem List: (1) Dehydration (2) Suspected 2019-nCoV infection (3) Urinary tract infection (4) Pacemaker Assessment Renal failure most likely dehydration, may have underlying chronic kidney disease Suspected 2019-nCoV infection Febrile illness, acute Dementia Pneumonia Urinary tract infection Status post pacemaker Plan February 08: Even though remains stable from a renal standpoint of view, patient respiratory status worsened. Chest x-ray yesterday suggestive of increased infiltrate on the right side Will order an ABG Continue pulmonary toilet and continue per ID We will monitor renal parameters Previously: IV potassium and phosphate as needed Stable from renal standpoint of view Previously: Slow IV hydration, watch for CHF symptoms Monitor renal parameters Urine studies Antibiotics per ID Avoid nephrotoxic's Per orders Subjective ROS Limited/Unobtainable: Yes Objective Objective Last 24 Hour Vital Signs Date Time Temp Pulse Resp B/P (MAP) Pulse Ox O2 Delivery O2 Flow Rate FiO2 02/09/20 08:11 Simple Mask 12.0 02/09/20 08:00 98.8 92 20 123/65 (84) 99 02/09/20 08:00 92 02/09/20 06:30 97 120/56 02/09/20 04:00 97 02/09/20 04:00 98.8 97 37 120/56 (77) 90 02/09/20 00:00 107 02/09/20 00:00 99.2 110 35 131/84 (100) 92 02/08/20 22:11 65 135/79 02/08/20 21:00 Simple Mask 12.0 02/08/20 20:00 100 02/08/20 20:00 99.6 102 30 135/79 (97) 92 02/08/20 16:00 65 02/08/20 15:50 97.5 71 20 124/56 (78) 98 02/08/20 13:21 69 131/61 Intake and Output 02/08/20 02/09/20 19:00 07:00 Intake Total 369 ml 300.5 ml Output Total 150 ml Balance 219 ml 300.5 ml Intake Oral 324 ml Free Water 60 ml IV Total 105.5 ml Tube Feeding 45 ml 135 ml Output Urine Total 150 ml # Voids 1 2 # Bowel Movements 1 2 Laboratory Tests 02/09/20 05:26: White Blood Count 22.6#*H, Red Blood Count 4.15L, Hemoglobin 13.1L, Hematocrit 37.9L, Mean Corpuscular Volume 91, Mean Corpuscular Hemoglobin 31.7H, Mean Corpuscular Hemoglobin Concent 34.6, Red Cell Distribution Width 11.6, Platelet Count 213, Mean Platelet Volume 7.2, Neutrophils (%) (Auto) , Lymphocytes (%) ( Auto) , Monocytes (%) (Auto) , Eosinophils (%) (Auto) , Basophils (%) (Auto) , Differential Total Cells Counted 100, Neutrophils % (Manual) 93H, Lymphocytes % (Manual) 5L, Monocytes % (Manual) 2, Eosinophils % (Manual) 0, Basophils % ( Manual) 0, Band Neutrophils 0, Platelet Estimate Adequate, Platelet Morphology Normal, Red Blood Cell Morphology Normal, Sodium Level 147H, Potassium Level 4.1 , Chloride Level 109H, Carbon Dioxide Level 30, Anion Gap 8, Blood Urea Nitrogen 29H, Creatinine 1.4#H, Estimat Glomerular Filtration Rate 48.2, Glucose Level 172H, Calcium Level 8.2L, Phosphorus Level 2.9, Magnesium Level 2.0, Total Bilirubin 0.6, Aspartate Amino Transf (AST/SGOT) 23, Alanine Aminotransferase (ALT/SGPT) 24, Alkaline Phosphatase 67, C-Reactive Protein, Quantitative 18.2H, Total Protein 6.1L, Albumin 2.0L, Globulin 4.1, Albumin/ Globulin Ratio 0.5L 02/09/20 09:10: Arterial Blood pH 7.468H, Arterial Blood Partial Pressure CO2 41.9, Arterial Blood Partial Pressure O2 221.9H, Arterial Blood HCO3 29.7H, Arterial Blood Oxygen Saturation 98.8, Arterial Blood Base Excess 5.5H, Elias Test Positive Height (Feet): 5 Height (Inches): 6.00 Weight (Pounds): 129 General Appearance: mild distress, other - Tachypneic Cardiovascular: tachycardia Respiratory/Chest: decreased breath sounds Abdomen: distended Objective No change Cooper Chamorro MD February 09, 2020 12:08
--- NOTE | 2020-02-09 12:31 | Infectious Diseases Prog Note ---
Assessment/Plan Assessment/Plan Assessment: Severe Sepsis Acute hypoxic respiratory failure- on simple mask 15L- high suspicion for COVID19- despite neg tests Pneumonia, probable aspiration -02/05 sp cx ABC (R Ancef; otherwise S) CXR: New/worsening patchy opacities in the right upper lung. No significant change in the right lower lung opacities or the subsegmental atelectasis versus infiltrate in the left lung base. SARS CoV2 PCR neg -CXR Right basilar infiltrate. -02/03 SARS-COV2 PCR neg UTI -u/a wbc tnct, nit +, leuk +3; ucx >100k E.coli (I to amp, otherwise S) -BCx NTD Fever ( up to 104.8 upon admission);SP Leukocytosis; worsening Thrombocytopenia, SP BRIANA, recurrent Lactic acidosis, SP hx of recent UTI (~2 weeks [facility]) Alzheimer's Dementia s/p PPM CAD s/p CABG dysphagia s/p GT (now removed) [place] resident ([facility]) - no reported COVID patients in this facility as of 02/03/20 DNR/DNI Plan: -Continue empiric Zosyn #4 (abx d #7/) -02/07 SP IV Vancomycin #6 -02/05 SP Cefepime #3 -02/02 SP Flagyl x1 -f/u cx -Monitor CBC/CMP, temperatures -Continue COVID 19 isolation despite neg x2; high suspicion -aspiration precautions -Bcx x2, u/a w/ reflex -Cdiff if diarrhea Thank you for consulting [facility]. Will continue to follow along with you. Discussed with RN. Subjective Allergies: Coded Allergies: No Known Allergies (Unverified , 02/03/20) Subjective afebrile in >48hrs on simple mask 12L leukocytosis increasing Cr increased Objective Vital Signs Last 24 Hour Vital Signs Date Time Temp Pulse Resp B/P (MAP) Pulse Ox O2 Delivery O2 Flow Rate FiO2 02/09/20 08:11 Simple Mask 12.0 02/09/20 08:00 98.8 92 20 123/65 (84) 99 02/09/20 08:00 92 02/09/20 06:30 97 120/56 02/09/20 04:00 97 02/09/20 04:00 98.8 97 37 120/56 (77) 90 02/09/20 00:00 107 02/09/20 00:00 99.2 110 35 131/84 (100) 92 02/08/20 22:11 65 135/79 02/08/20 21:00 Simple Mask 12.0 02/08/20 20:00 100 02/08/20 20:00 99.6 102 30 135/79 (97) 92 02/08/20 16:00 65 02/08/20 15:50 97.5 71 20 124/56 (78) 98 02/08/20 13:21 69 131/61 Height (Feet): 5 Height (Inches): 6.00 Weight (Pounds): 129 Objective Gen: in mild resp distress Head: normocephalic HEENT: mask in palce Abd: not distended Microbiology Date/Time Source Procedure Growth Status 02/06/20 19:35 Nasopharynx Coronavirus COVID-19 PCR ([facility]) - Final Complete Laboratory Tests Test 02/09/20 05:26 02/09/20 09:10 White Blood Count 22.6 K/UL (4.8-10.8) #*H Red Blood Count 4.15 M/UL (4.70-6.10) L Hemoglobin 13.1 G/DL (14.2-18.0) L Hematocrit 37.9 % (42.0-52.0) L Mean Corpuscular Volume 91 FL (80-99) Mean Corpuscular Hemoglobin 31.7 PG (27.0-31.0) H Mean Corpuscular Hemoglobin Concent 34.6 G/DL (32.0-36.0) Red Cell Distribution Width 11.6 % (11.6-14.8) Platelet Count 213 K/UL (150-450) Mean Platelet Volume 7.2 FL (6.5-10.1) Neutrophils (%) (Auto) % (45.0-75.0) Lymphocytes (%) (Auto) % (20.0-45.0) Monocytes (%) (Auto) % (1.0-10.0) Eosinophils (%) (Auto) % (0.0-3.0) Basophils (%) (Auto) % (0.0-2.0) Differential Total Cells Counted 100 Neutrophils % (Manual) 93 % (45-75) H Lymphocytes % (Manual) 5 % (20-45) L Monocytes % (Manual) 2 % (1-10) Eosinophils % (Manual) 0 % (0-3) Basophils % (Manual) 0 % (0-2) Band Neutrophils 0 % (0-8) Platelet Estimate Adequate Platelet Morphology Normal Red Blood Cell Morphology Normal Sodium Level 147 MMOL/L (136-145) H Potassium Level 4.1 MMOL/L (3.5-5.1) Chloride Level 109 MMOL/L (98-107) H Carbon Dioxide Level 30 MMOL/L (21-32) Anion Gap 8 mmol/L (5-15) Blood Urea Nitrogen 29 mg/dL (7-18) H Creatinine 1.4 MG/DL (0.55-1.30) #H Estimat Glomerular Filtration Rate 48.2 mL/min (>60) Glucose Level 172 MG/DL (74-106) H Calcium Level 8.2 MG/DL (8.5-10.1) L Phosphorus Level 2.9 MG/DL (2.5-4.9) Magnesium Level 2.0 MG/DL (1.8-2.4) Total Bilirubin 0.6 MG/DL (0.2-1.0) Aspartate Amino Transf (AST/SGOT) 23 U/L (15-37) Alanine Aminotransferase (ALT/SGPT) 24 U/L (12-78) Alkaline Phosphatase 67 U/L (46-116) C-Reactive Protein, Quantitative 18.2 mg/dL (0.00-0.90) H Total Protein 6.1 G/DL (6.4-8.2) L Albumin 2.0 G/DL (3.4-5.0) L Globulin 4.1 g/dL Albumin/Globulin Ratio 0.5 (1.0-2.7) L Arterial Blood pH 7.468 (7.350-7.450) Arterial Blood Partial Pressure CO2 41.9 mmHg (35.0-45.0) Arterial Blood Partial Pressure O2 221.9 mmHg (75.0-100.0) H Arterial Blood HCO3 29.7 mmol/L (22.0-26.0) H Arterial Blood Oxygen Saturation 98.8 % (95-100) Arterial Blood Base Excess 5.5 (-2-2) H Elias Test Positive Current Medications Medications (Trade) Dose Ordered Sig/Jodee Route PRN Reason Start Time Stop Time Status Last Admin Dose Admin Acetaminophen (Tylenol) 650 mg Q4H PRN ORAL fever 02/03/20 13:00 03/04/20 12:59 02/06/20 21:36 Albuterol Sulfate (Proventil) 2.5 mg Q4H PRN HHN Shortness of Breath 02/06/20 09:10 02/11/20 09:09 Aspirin (ASA) 81 mg DAILY ORAL 02/04/20 09:00 03/20/20 08:59 02/09/20 08:53 Atorvastatin Calcium (Lipitor) 20 mg BEDTIME ORAL 02/03/20 21:00 05/03/20 20:59 02/08/20 22:10 Diltiazem HCl (Cardizem) 30 mg EVERY 8 HOURS ORAL 02/06/20 22:00 03/07/20 21:59 02/09/20 06:30 Docusate Sodium (Colace) 100 mg THREE TIMES A DAY NG 02/06/20 18:00 03/07/20 17:59 02/09/20 08:53 Donepezil HCl (Aricept) 20 mg DAILY ORAL 02/04/20 09:00 03/05/20 08:59 02/09/20 08:53 Heparin Sodium (Porcine) (Heparin 5000 units/ml) 5,000 units EVERY 12 HOURS SUBQ 02/03/20 21:00 03/19/20 20:59 02/09/20 08:54 Hydralazine HCl (Apresoline) 25 mg Q4H PRN ORAL For blood pressure over 160 sy 02/03/20 11:00 05/03/20 10:59 Memantine (Namenda) 10 mg DAILY ORAL 02/05/20 09:00 03/06/20 08:59 02/09/20 08:53 Nitroglycerin (Ntg) 0.4 mg Q5M PRN SL Prn Chest Pain 02/03/20 13:30 03/04/20 13:29 Ondansetron HCl (Zofran) 4 mg Q6H PRN IVP Nausea & Vomiting 02/03/20 13:30 03/04/20 13:29 Pantoprazole (Protonix) 40 mg EVERY 12 HOURS ORAL 02/03/20 11:00 03/04/20 10:59 02/09/20 08:53 Piperacillin Sod/ Tazobactam Sod 3.375 gm/Sodium Chloride 110 ml @ 27.5 mls/hr EVERY 8 HOURS IVPB 02/06/20 14:00 02/11/20 13:59 02/09/20 06:30 Polyethylene Glycol (Miralax) 17 gm DAILYPRN PRN ORAL Constipation 02/03/20 13:30 03/04/20 13:29 Promethazine HCl/ Codeine (Phenergan with Codeine) 5 ml Q4H PRN ORAL For Cough 02/03/20 13:30 03/04/20 13:29 Temazepam (Restoril) 15 mg HSPRN PRN ORAL Insomnia 02/03/20 21:00 02/10/20 20:59 Jocelyn Olson M.D. February 09, 2020 12:31
--- NOTE | 2020-02-09 12:31 | NUR ---
*-* INSURANCE *-* UPDATED CLINICALS HAVE BEEN FAXED TO: [facility] [phone] FAX [phone] Work [address] & [address] P: [phone]
[2020-02-09 14:04] VITALS: BP 109/52
--- NOTE | 2020-02-09 14:15 | NUR ---
TRANSFER UPDATE RECEIVED CALL FROM SHANTEL SINGH FROM [facility] PATIENT WILL TRANSFER TO CONTRACTED HOSPITAL [facility] ROOM NUMBER HAS BEEN WITHHELD PER WILL [facility] HAS NEW POLICY THAT ALL TRANSFERS MUST GO THRU THEIR ER ACCEPTING PHYSICIAN IS DR [facility] HAS BEEN ARRANGED FOR [address] AMBULANCE AUTH [id number] PATIENT MUST BE AT [facility] WITHIN A 3 HOUR WINDOW OR WILL BE REJECTED ABOVE COMMUNICATED TO CHARGE NURSE JENNIFER AND BEDSIDE NURSE LIGIA
[2020-02-09] MEDS ORDERED: HEPARIN SO5000 UNIT2 SUBQ (14:43)
[2020-02-09] MEDS ORDERED: ZOSYN 3.373.375 GM/1 IVPB (14:43)
--- NOTE | 2020-02-09 15:41 | NUR ---
NURSE NOTES: Report given to Alden SMITH at [facility] in ER.
--- NOTE | 2020-02-09 15:50 | NUR ---
[facility] here to transport patient to [facility]. Report has been given by Primary Rn to receiving hosp. Patient Stable at this time of transfer.
--- NOTE | 2020-02-09 16:20 | NUR ---
NURSE NOTES: Patient is discharged per MD order to [facility] via ambulance. NG-Tube removed, patient tolerated well. Hill catheter removed, patient tolerated well, no trauma noted, urine output of 350cc. Patient's belonging given to Ambulance personnel, patient unable to sign. IV's on LAC 20G and LFA 22G were left on patient. Pictures taken of left arm and sacral and uploaded. Patient is in stable condition.
--- NOTE | 2020-02-10 11:53 | NUR ---
*-* INSURANCE *-* UPDATED CLINICALS HAVE BEEN FAXED TO: [facility] [phone] FAX [phone] P: [phone]
--- NOTE | 2020-02-10 17:23 | Discharge Summary ---
Discharge Summary Discharge Summary _ DATE OF ADMISSION: 02/03/2020 DATE OF DISCHARGE: 02/09/2020 DISCHARGED BY: Dr. Grace REASON FOR ADMISSION: 84 years old male with past medical history of pacemaker, coronary artery disease, status post CABG, Alzheimer dementia, DNR/DNI status, resident [facility], was brought for evaluation due to fever. Patient had recent urinary tract infection, about 2 weeks ago. In the facility patient was noted to have increased respiratory difficulties. Patient with DNR/DNI status, but IV fluids, antibiotics as well as some procedures were permitted. n evaluation patient was severely febrile with temperature 104.7. Patient was hypoxic with O2 sat 95% on 100% nonrebreathing mask. Laboratory work-up revealed no leukocytosis ,stable hemoglobin, hematocrit and platelet count. BUN 27, creatinine 1.4. Glucose 143. Lactic acid 2.6, stable LFT. Troponin negative. pro BNP 1707. Urinalysis revealed evidence of urinary tract infection. Chest x-ray demonstrated right basilar infiltrate. In emergency department patient pancultured , started on empiric antibiotics and e IV fluids. Patient was swabbed for COVID-19 and admitted to telemetry floor to isolation room. CONSULTANTS: timber repairer Dr. Calzada pulmonary Dr. Schwarz ID specialist Dr. Olson field account director Dr. Chamorro [facility] COURSE: Patient admitted to isolation room. Supplemental oxygen provided and titrated to keep pulse oximetry above 92%. Pulmonary toilet provided. Patient was on empiric antibiotics. Blood cultures were negative. Urine culture revealed E. coli. SARS COV- 2 by PCR on 02/03 and 02/05 were not detected. Patient was continued on isolation, given high suspicion for COVID infection as per ID specialist recommendation. Patient developed leukocytosis on the third day , initially started to trend down, but on 02/08 WBC up to 22.6. Patient was followed-up with chest x-ray. Last chest x-ray showed increased right lung infiltrates. Patient was able to be weaned from 100% nonrebreathing mask to simple mask. DVT prophylaxis provided. Bedside swallow evaluation was done . speech therapist recommended video swallow evaluation, given high risk for silent aspiration and dysphagia. Diet texture provided as per speech therapist recommendation with one-to-one supervision and strict aspiration/reflux precaution. Protein supplements provided as per registered clinical dietitian recommendation. Given worsening mental status, NG tube inserted, and patient started on tube feeding with aspiration precaution. Patient was on gentle IV hydration. Renal parameters and electrolytes were closely monitored. Potassium and phosphorus were replaced. DVT and GI prophylaxis provided. Aspirin and statin continued. Hemoglobin and hematocrit were closely monitored with goal to keep hemoglobin above 7. Patient required transfer to [facility] as per his insurance. Patient was stable for transfer. Follow-up with medical doctor at the accepting facility. FINAL DIAGNOSES: Severe sepsis Suspected COVID-19 infection -ruled out Acute hypoxemic respiratory failure, requiring nonrebreathing mask Pneumonia E. coli UTI BRIANA , possibly on underlying CKD Dehydration CAD, status post CABG Pacemaker Severe protein calorie malnutrition Anemia Alzheimer dementia Aspiration risk Electrolyte imbalance DISCHARGE MEDICATIONS: List of medication was sent to accepting facility. DISCHARGE INSTRUCTIONS: Patient was discharged to [facility] as per his insurance. Follow up with medical doctor at the accepting facility. Fabiola Bridges NP February 10, 2020 17:23
== END 2020-02-09 16:15 | DRG 871 ==
LOC: EDBD 03:36 → EMR 03:57 → 2E 04:26 → EDBEDREQ 06:16 → 2E 02-06 04:54
DX: A41.9 Sepsis, unspecified organism (principal); J18.9 Pneumonia, unspecified organism; J96.01 Acute respiratory failure with hypoxia; E43 Unspecified severe protein-calorie malnutrition; N39.0 Urinary tract infection, site not specified; N17.9 Acute kidney failure, unspecified; Z68.1 Body mass index [BMI] 19.9 or less, adult; Y95 Nosocomial condition; R65.20 Severe sepsis without septic shock; G30.9 Alzheimer's disease, unspecified; F02.80 Dementia in other diseases classified elsewhere, unspecified severity, without behavioral disturbance, psychotic disturbance, mood disturbance, and anxiety; I25.10 Atherosclerotic heart disease of native coronary artery without angina pectoris; Z95.0 Presence of cardiac pacemaker; Z95.1 Presence of aortocoronary bypass graft; Z79.82 Long term (current) use of aspirin; Z66 Do not resuscitate; B96.20 Unspecified Escherichia coli [E. coli] as the cause of diseases classified elsewhere; E86.0 Dehydration; D64.9 Anemia, unspecified; E87.8 Other disorders of electrolyte and fluid balance, not elsewhere classified; N18.9 Chronic kidney disease, unspecified; D69.6 Thrombocytopenia, unspecified
CPT/HCPCS: 36415; 36600; 71045; 74018; 80048; 80053; 80061; 80069; 80076; 80202; 81003; 82533; 82550; 82553; 82607; 82728; 82746; 82803; 82962; 82977; 83036; 83540; 83550; 83605; 83615; 83735; 83880; 84100; 84443; 84484; 84550; 85007; 85025; 85379; 85651; 86140; 87040; 87070; 87081; 87086; 87181; 87205; 87635; 93005; 96365; 96368; 99285; C9399; J8499